=== PATIENT | male | born 1930 | race Caucasian/White ===

== ENCOUNTER 2017-01-15 22:33 | Inpatient (IN) | payer MEDICARE, BC, MEDICAID ==
--- NOTE | 2017-01-15 22:02 | EDM.PDOC ---
ED HISTORY OF PRESENT ILLNESS - General Stated Complaint: AMB Time Seen by Provider: 01/15/17 21:58 Source of Information: Reports: Patient, EMS History Limitations: Reports: Respiratory distress - History of Present Illness INITIAL COMMENTS - FREE TEXT/NARRATIVE: Pt poor historian. EMS state Pt's called stating unable get Pt back into bed he's too heavy and also having breathing problems and all his meds are here in hospital we should know them all and also wants him to be admitted since can' t care for him. Pt states been having breathing problems 2 days worse tonight. doesn't know what meds he take but denies med allergies. states we should have all his records here. - Related Data Allergies/ADRs: Allergies Allergy/AdvReac Type Severity Reaction Status Date / Time No Known Allergies Allergy Verified 01/15/17 22:01 Home Meds: Home Meds Allopurinol [Zyloprim] 150 mg PO DAILY 02/19/15 [History] Carvedilol [Carvedilol] 6.25 mg PO BID 02/19/15 [History] Cholecalciferol (Vitamin D3) [Vitamin D3] 1,000 unit PO 02/19/15 [History] Fenofibrate [Fenofibrate] 160 mg PO DAILY 02/19/15 [History] Insulin Aspart [NovoLOG] 27 units SUBCUT TID 02/19/15 [History] Insulin Glarg,Human.Rec.Analog [Lantus Solostar] 65 unit SUBCUT DAILY 02/19/15 [ History] Levothyroxine [Levothyroxine] 200 mcg PO DAILY 02/19/15 [History] Multivitamin W-Minerals/Lutein [Vision Plus Lutein Vitamin] 1 tab PO DAILY 02/19 [History] Pantoprazole [ProTONIX] 40 mg PO DAILY 02/19/15 [History] Simvastatin [Simvastatin] 20 mg PO BEDTIME 02/19/15 [History] Sodium Bicarbonate 650 mg PO DAILY 02/19/15 [History] Tamsulosin HCl [Tamsulosin HCl] 0.4 mg PO DAILY 02/19/15 [History] Thiamine Mononitrate [Vitamin B-1] 100 mg PO 02/19/15 [History] Warfarin [Coumadin] 5 mg PO DAILY 02/19/15 [History] amLODIPine Besylate [Amlodipine Besylate] 5 mg PO DAILY 02/19/15 [History] hydrALAZINE [Apresoline] 50 mg PO Q8H 02/19/15 [History] traMADol [Ultram] 50 mg PO Q8H PRN 02/19/15 [History] Past Medical History Other Gastrointestinal History: hx GI Bleed Social & Family History - Tobacco Use Smoking Status *Q: Current Some Day Smoker Years of Tobacco use: 20 Packs/Tins Daily: 0 Used Tobacco, but Quit: Yes Month Tobacco Last Used: 10 - Alcohol Use Days Per Week of Alcohol Use: 0 - Recreational Drug Use Recreational Drug Use: No ED ROS GENERAL - Review of Systems Review Of Systems: ROS reveals no pertinent complaints other than HPI. ED EXAM, GENERAL - Physical Exam Exam: See Below Exam Limited By: Respiratory distress General Appearance: alert, WD/WN, mild distress, other (cranky, but co-op') Ears: hearing grossly normal Throat/Mouth: Normal voice, No airway compromise Head: atraumatic Neck: non-tender, full range of motion Respiratory/Chest: decreased breath sounds, rhonchi, wheezing, accessory muscle use, other (subcostal ) Cardiovascular: regular rate, rhythm GI/Abdominal: soft, non tender Extremities: pedal edema, other (2+ bilateral) Neurological: alert, oriented, normal cognition, no motor/sensory deficits Psychiatric: anxious Skin Exam: Warm, Dry Lymphatic: no adenopathy Course - Vital Signs Last Recorded V/S: Last Vital Signs Temp 36.9 C 01/15/17 22:02 Pulse 103 H 01/15/17 22:02 Resp 24 H 01/15/17 22:02 BP 151/107 H 01/15/17 22:02 Pulse Ox 94 L 01/15/17 22:02 - Orders/Labs/Meds Orders: Active Orders 24 hr Category Date Time Status EKG Documentation Completion [RC] STAT Care 01/15/17 21:56 Active CULTURE BLOOD [BC] Stat Lab 01/15/17 22:00 Received cefTRIAXone [Rocephin] 1 gm Med 01/15/17 23:02 Ordered Sodium Chloride 0.9% [Normal Saline] 100 ml IV ONETIME Medication Orders Ceftriaxone Sodium 1 gm/ (Sodium Chloride) 100 mls @ 200 mls/hr IV ONETIME ONE Stop: 01/15/17 23:31 Labs: Laboratory Tests 01/15/17 01/15/1701/15/17 Range/Units 22:00 22:00 22:00 WBC 20.1 H (5.0-10.0) 10^3/uL RBC 5.83 (4.6-6.2) 10^6/uL Hgb 16.3 (14.0-18.0) g/dL Hct 50.4 (40.0-54.0) % MCV 86.4 (80-100) fL MCH 28.0 (27.0-34.0) pg MCHC 32.3 L (33.0-35.0) g/dL Plt Count 286 (150-450) 10^3/uL Neut % (Auto) 92.5 H (42.2-75.2) % Lymph % (Auto) 2.5 L (20.5-50.1) % [place] % (Auto) 4.2 (2-8) % Eos % (Auto) 0.6 L (1.0-3.0) % Baso % (Auto) 0.2 (0.0-1.0) % D-Dimer, Quantitative 473 H (0-400) ng/mL Sodium 138 (135-145) mmol/L Potassium 4.4 (3.6-5.0) mmol/L Chloride 102 (101-111) mmol/L Carbon Dioxide 26.0 (21.0-31.0) mmol/L Anion Gap 14.4 BUN 38 H (7-18) mg/dL Creatinine 2.7 H (0.6-1.3) mg/dL Est Cr Clr Drug Dosing 18.38 mL/min Estimated GFR (MDRD) 23 BUN/Creatinine Ratio 14.07 Glucose 142 H (74-105) mg/dL Lactic Acid (0.5-2.2) mmol/L Calcium 9.2 (8.4-10.2) mg/dl Total Bilirubin 0.9 (0.2-1.0) mg/dL AST 21 (10-42) IU/L ALT 9 L (10-60) IU/L Alkaline Phosphatase 42 (42-121) IU/L Troponin I < 0.02 (0.00-0.02) ng/ml B-Natriuretic Peptide 50 (0-100) pg/ml Total Protein 7.7 (6.7-8.2) g/dl Albumin 4.1 (3.2-5.5) g/dl Globulin 3.6 Albumin/Globulin Ratio 1.14 01/15/17 Range/Units 22:00 WBC (5.0-10.0) 10^3/uL RBC (4.6-6.2) 10^6/uL Hgb (14.0-18.0) g/dL Hct (40.0-54.0) % MCV (80-100) fL MCH (27.0-34.0) pg MCHC (33.0-35.0) g/dL Plt Count (150-450) 10^3/uL Neut % (Auto) (42.2-75.2) % Lymph % (Auto) (20.5-50.1) % [place] % (Auto) (2-8) % Eos % (Auto) (1.0-3.0) % Baso % (Auto) (0.0-1.0) % D-Dimer, Quantitative (0-400) ng/mL Sodium (135-145) mmol/L Potassium (3.6-5.0) mmol/L Chloride (101-111) mmol/L Carbon Dioxide (21.0-31.0) mmol/L Anion Gap BUN (7-18) mg/dL Creatinine (0.6-1.3) mg/dL Est Cr Clr Drug Dosing mL/min Estimated GFR (MDRD) BUN/Creatinine Ratio Glucose (74-105) mg/dL Lactic Acid 1.5 (0.5-2.2) mmol/L Calcium (8.4-10.2) mg/dl Total Bilirubin (0.2-1.0) mg/dL AST (10-42) IU/L ALT (10-60) IU/L Alkaline Phosphatase (42-121) IU/L Troponin I (0.00-0.02) ng/ml B-Natriuretic Peptide (0-100) pg/ml Total Protein (6.7-8.2) g/dl Albumin (3.2-5.5) g/dl Globulin Albumin/Globulin Ratio Meds: Medications Generic Name Dose Route Start Last Admin Trade Name Freq PRN Reason Stop Dose Admin Ceftriaxone Sodium 1 gm/ 100 mls @ 200 mls/hr 01/15/17 23:02 Sodium Chloride IV 01/15/17 23:31 ONETIME ONE Discontinued Medications Generic Name Dose Route Start Last Admin Trade Name Pravinq PRN Reason Stop Dose Admin Methylprednisolone Sodium Succinate 125 mg 01/15/17 21:57 01/15/17 22:21 Solu-Medrol IVPUSH 01/15/17 21:58 125 mg ONETIME ONE Administration - Re-Assessments/Exams Free Text/Narrative Re-Assessment/Exam: 01/15/17 23:[address] Diaz who kindly admitted Pt. Departure - Departure Time of Disposition: 23:04 Disposition: Admitted As Inpatient 68 Condition: good Clinical Impression: Pneumonia Qualifiers: Pneumonia type: due to unspecified organism Laterality: bilateral Lung location : lower lobe of lung Qualified Code(s): J18.9 - Pneumonia, unspecified organism Forms: ED Department Discharge - My Orders Last 24 Hours: My Active Orders 01/15/17 21:56 EKG Documentation Completion [RC] STAT 01/15/17 22:00 CULTURE BLOOD [BC] Stat 01/15/17 23:02 cefTRIAXone [Rocephin] 1 gm Sodium Chloride 0.9% [Normal Saline] 100 ml IV ONETIME - Assessment/Plan Last 24 Hours: My Active Orders 01/15/17 21:56 EKG Documentation Completion [RC] STAT 01/15/17 22:00 CULTURE BLOOD [BC] Stat 01/15/17 23:02 cefTRIAXone [Rocephin] 1 gm Sodium Chloride 0.9% [Normal Saline] 100 ml IV ONETIME
[2017-01-15 22:28] LABS: CHLORIDE,CL 102 mmol/L (101-111); SODIUM,NA 138 mmol/L (135-145)
[~2017-01-15 22:33] MED LIST: methylPREDNISolone Sodium Succinate 125 MG/2 ML SDV IVPUSH ONE
[2017-01-15] MEDS ORDERED: cefTRIAXone 1 GM in Sodium Chloride 0.9% 100 ML IV ONE (23:02)
[2017-01-16] MEDS ORDERED: Acetaminophen/oxyCODONE 325-5 MG Tab PO PRN (00:42)
[2017-01-16] MEDS ORDERED: Ondansetron 4 MG Tab.DIS PO PRN (00:42)
[2017-01-16] MEDS ORDERED: Polyethylene Glycol 3350 Powder 17 GM Packet PO PRN (00:42)
[2017-01-16] MEDS ORDERED: Zolpidem 5 MG Tab PO PRN (00:42)
[2017-01-16] MEDS ORDERED: Acetaminophen 325 MG Tab PO PRN (00:42)
[2017-01-16] MEDS ORDERED: Docusate Sodium 100 MG Cap PO PRN (00:42)
[2017-01-16] MEDS ORDERED: Magnesium Hydroxide 400 MG/5 ML Susp 30 ML Cup PO PRN (00:42)
[2017-01-16] MEDS ORDERED: Sodium Chloride 0.9% 1,000 ML IV SCH ×2 (00:45→10:00)
[2017-01-16] MEDS ORDERED: 50% Dextrose in Water 50 ML Syringe IVPUSH PRN (00:46)
[2017-01-16] MEDS ORDERED: Insulin Aspart 100 Units/ML 3 ML Pen SUBCUT SCH ×2 (01:00→09:00)
[2017-01-16] MEDS: cefTRIAXone 1 GM in Sodium Chloride 0.9% 50 ML IV SCH (01:05)
[2017-01-16] MEDS: hydrALAZINE 25 MG Tab PO SCH ×3 (01:14→16:08)
[2017-01-16] MEDS: Azithromycin 500 MG in Sodium Chloride 0.9% 250 ML IV SCH (01:15)
--- NOTE | 2017-01-16 03:51 | HP ---
CHIEF COMPLAINT: Increasing weakness, tiredness, cough. HISTORY OF PRESENT ILLNESS: Mr. Suzan Ortiz is an 86-year-old male with medical history significant for hypertension, hyperlipidemia, type 2 diabetes mellitus, coronary artery disease, history of cerebrovascular accident in the past, benign prostatic hypertrophy, atrial fibrillation on chronic anticoagulation with Coumadin, gastroesophageal reflux disease, hypothyroidism, presented to the ER with complaints of increasing weakness, tiredness, and also having cough for the last 2 to 3 days. At this time, the patient complains of increasing weakness, 6/10 in intensity, aggravated on exertion, relieved with rest, has been progressively getting worse in the last 1-2 days, associated with cough, which is dry in nature. The patient is not able to bring up any phlegm. Denies any fevers or chills in the last 2 days. No sick contacts. No recent travel. No pets at home. Denied any history of similar complaints in the past. While in the emergency room, the patient was also noted to be hypoxic, requiring nasal cannula oxygen. He was saturating only at around 86% on room air. He denies any ongoing chest pains at this time. No abdominal pain. No nausea. No vomiting. No diarrhea in the last few days. The patient denied any history of chest pains, any exertion. No history of dyspnea on exertion. The patient claims that he cannot walk mostly from his pain. Denied any history of hematemesis, hematochezia, or melanotic stools. Normal bowel and bladder habits, otherwise. REVIEW OF SYSTEMS: A complete review of system including skin, ear, nose, and throat, cardiovascular system, respiratory system, gastrointestinal system, genitourinary system, hematology, oncology, neurology, allergy, immunology, endocrinology, constitutional were all evaluated and were negative except for the above-said notes. PAST MEDICAL HISTORY: Significant for hypertension, hyperlipidemia, type 2 diabetes mellitus, chronic kidney disease, atrial fibrillation, chronic anticoagulation on Coumadin, cerebrovascular accidents in the past, hypothyroidism, gastroesophageal reflux disease. PAST SURGICAL HISTORY: Significant for total knee replacement, colonoscopy, coronary artery bypass graft, and transurethral resection of the prostate in the past. FAMILY HISTORY: Significant for diabetes in his father. Diabetes and heart disease in his brother. SOCIAL HISTORY: The patient denied any history of smoking tobacco. No history of alcohol intake. ALLERGIES: Patient is noted to have allergies to codeine and cortisone. HOME MEDICATIONS: Reviewed, he is on: 1. Hydralazine 50 mg q.8 hourly. 2. Norvasc 2.5 mg daily. 3. Coumadin 1.25 mg daily. 4. Thiamine 100 mg daily. 5. Tamsulosin 0.4 mg daily. 6. Sodium bicarbonate 650 mg daily. 7. Simvastatin 20 mg at bedtime. 8. Protonix 40 mg daily. 9. Levothyroxine 1 tablet daily. 10.NovoLog 25 units 3 times a day. 11.Lantus 58 units daily. 12.Fenofibrate 160 mg daily. 13.Carvedilol 6.25 mg twice a day. 14.Aspirin 1 tablet daily. 15.Allopurinol 1 tablet daily. PHYSICAL EXAMINATION: Vital Signs: Temperature of 98.5, pulse of 103, respiratory rate of 24, blood pressure 151/107, saturating at 94% on 2-3 L of nasal cannula oxygen. General Appearance: The patient is well oriented to time, place, and person. Follows commands spontaneously. Cardiovascular: S1-S2 heard with normal intensity. No gallops. Respiratory: Clear to auscultation bilaterally, except for mild crepitations at the bases. No wheeze. Abdomen: Soft. Bowel sounds positive. Nontender. No rigidity. Extremities: No edema in bilateral lower extremities. Neurology: No gross focal neurological deficit. Skin: No acute rash noted. Psychology: Normal mood. LABS: WBC 20.1, hemoglobin 16.3, hematocrit 50.4, and platelet count 286. Sodium 138, potassium 4.4, chloride 102, bicarb 26, BUN 38, creatinine 2.7, glucose 142, lactic acid 1.5. AST 21, ALT 9, alkaline phosphatase 42, troponin less than 0.02. B-natriuretic peptide 50. ASSESSMENT: 1. Possible pneumonia. 2. Acute hypoxic respiratory failure. 3. Hypertension. 4. Type 2 diabetes mellitus. 5. Hyperlipidemia. 6. Coronary artery disease, status post coronary artery bypass graft. 7. Atrial fibrillation, on chronic anticoagulation with Coumadin. 8. Hypothyroidism. 9. Obesity. 10.Generalized debility. 11.Leukocytosis. 12.Systemic inflammatory response syndrome with possible sepsis. PLAN: 1. Pneumonia. The patient had a chest x-ray, which shows possible infiltrates versus atelectasis, but the patient has been coughing up for the last 2 to 3 days. Given his leukocytosis, pneumonia high in the differential. We will need to rule out for rapid influenza swabs. We will empirically start him on IV antibiotics, ceftriaxone, and Zithromax. We will obtain sputum cultures, blood cultures, and titrate the antibiotics once we have the culture reports available. 2. Possible sepsis. The patient is noted to be tachycardic, tachypneic with the heart rate of 103, respiratory rate of 24, has leukocytosis. WBC 20.1 and possible pneumonia, consideration of possible sepsis. Initial lactic acid has been within normal limits. We will follow with serial lactic acid in the next 6 hours and continue with IV antibiotics. 3. Hypertension, uncontrolled. The patient is noted to have elevated blood pressure. We will continue with current antihypertensive medications. We will further titrate up the medication as needed to optimize the blood pressure. 4. Type 2 diabetes mellitus. The patient is noted to be on insulin regimen. We will continue with the insulin dose while in the hospital. Check his fingersticks with each meals, have him on supplemental scale insulin as needed for additional coverage of his blood glucose. 5. Coronary artery disease. The patient denies any ongoing chest pains. His initial troponin remained negative. The 12-lead EKG shows atrial fibrillation, no acute ST elevation or ST depression noted. Continue with current medications. 6. Hypothyroidism. The patient is currently on levothyroxine, continue the same. We will order for a TSH level. 7. Acute hypoxic respiratory failure. This is mainly from his underlying pneumonia process. The patient will be kept on incentive spirometer and flutter valve for better pulmonary toileting. Continue supplemental oxygen to maintain a saturation of 95%. 8. Chronic anticoagulation. The patient is noted to be on Coumadin, continue the same. Try to maintain therapeutic INR of 2 to 3. We will recheck an INR in the a.m. Pharmacy to dose the Coumadin. 9. Gastroesophageal reflux disease. The patient is currently on Protonix, continue the same. 10.Code status. I had reviewed the detailed discussion regarding code status with the patient and the patient wants to be full code. 11.Reviewed the labs and medications. Reviewed the old charts. Discussed with Dr. Dickson, ER physician, regarding the plan of care. [facility] /[id number]
[2017-01-16] MEDS: Albuterol/Ipratropium 3.0-0.5 MG/3 ML Neb Soln NEB PRN (06:12)
[2017-01-16] MEDS: Levothyroxine 150 MCG Tab PO SCH (06:12)
[2017-01-16] MEDS: Insulin Aspart 100 Units/ML 3 ML Pen SUBCUT SCH ×7 (08:21→21:06)
[2017-01-16] MEDS: Pantoprazole 40 MG Tab.CR PO SCH (08:47)
[2017-01-16] MEDS: Sodium Bicarbonate 650 MG Tab PO SCH (08:49)
[2017-01-16] MEDS: Aspirin 81 MG Tab.EC PO SCH (08:49)
[2017-01-16] MEDS: Tamsulosin 0.4 MG Cap.ER PO SCH (08:49)
[2017-01-16] MEDS: Carvedilol 6.25 MG Tab PO SCH ×2 (08:49→21:05)
[2017-01-16] MEDS: Allopurinol 100 MG Tab PO SCH (08:49)
[2017-01-16] MEDS: amLODIPine 5 MG Tab PO SCH (08:50)
[2017-01-16] MEDS: Thiamine 100 MG Tab PO SCH (08:50)
[2017-01-16] MEDS: Insulin Detemir 100 Units/ML 3 ML Pen SUBCUT SCH (08:51)
[2017-01-16] MEDS ORDERED: Warfarin 2.5 MG Tab PO SCH (09:00)
[2017-01-16] MEDS ORDERED: Non-Formulary Medication 1 Each (Fenofibrate [Fenofibrate] 160 MG) PO SCH (09:00)
--- NOTE | 2017-01-16 13:28 | PN ---
DATE: 01/16/2017 HISTORY OF PRESENT ILLNESS: Mr. Suzan Ortiz is an 86-year-old male with medical history significant for hypertension, hyperlipidemia, type 2 diabetes mellitus, coronary artery disease, cerebrovascular accident in the past, benign prostatic hypertrophy, atrial fibrillation, and chronic anticoagulation, on Coumadin, was admitted to the hospital with complaints of increasing weakness, tiredness, and having cough, and was noted to have possible pneumonia. For the last 24 hours, the patient continues to be on nasal cannula oxygen to maintain a saturation of 95%. The patient has mild cough, but no phlegm. He denied any chest pains. No abdominal pain. No nausea. No vomiting. No diarrhea. REVIEW OF SYSTEMS: Cardiovascular, respiratory, gastrointestinal, neurology, and constitutional were all evaluated. PHYSICAL EXAMINATION: Vital signs: Temperature of 97, pulse of 79, blood pressure 133/73, saturating at 93% on 2 L of oxygen, and respiratory rate of 20. General appearance: The patient is well oriented to time, place, and person. Follows commands spontaneously. Cardiovascular system: S1 and S2 heard with normal intensity. No gallops. Respiratory system: Clear to auscultation bilaterally. No wheeze. No crepitations. Abdomen: Soft. Bowel sounds positive. Nontender. No rigidity. Extremities: No edema in bilateral lower extremities. Neurology: No gross focal neurological deficits. Skin: No acute rash noted. Psychology: Normal mood. MEDICATIONS: Reviewed shows: 1. Tylenol 650 mg every 4 hours as needed for pain. 2. DuoNeb 3 mL nebulizer every 4 hours as needed for shortness of breath. 3. Allopurinol 100 mg daily. 4. Norvasc 2.5 mg daily. 5. Aspirin 81 mg daily. 6. Zithromax 500 mg daily. 7. Coreg 6.25 mg twice a day. 8. Ceftriaxone 1 g daily. 9. Docusate sodium 100 mg twice a day. 10.Hydralazine 50 mg every 8 hours as scheduled. 11.NovoLog supplemental scale. 12.NovoLog 25 units three times a day with each meals. 13.Levemir 58 units, subcutaneous daily. 14.Levothyroxine 150 mcg daily. 15.Percocet 5/325 mg as needed for pain. 16.Protonix 40 mg daily. 17.Zocor 20 mg at bedtime. 18.Sodium bicarbonate 650 mg daily. 19.Thiamine 100 mg daily. 20.Coumadin pharmacy to dose. 21.Ambien 5 mg at night as needed for sleep. LABORATORY DATA: Reviewed, shows WBC 28.9, hemoglobin 14.5, hematocrit 45.4, and platelet count 248. Sodium 139, potassium 4.8, chloride 106, bicarb 25, BUN 45, and creatinine 3. Glucose 242. TSH 2.4. Lactic acid 1.3. ASSESSMENT: 1. Pneumonia. 2. Possible sepsis. 3. Acute hypoxic respiratory failure. 4. Hypertension. 5. Type 2 diabetes mellitus. 6. Hyperlipidemia. 7. Coronary artery disease. 8. Hypothyroidism. 9. Acute on chronic renal failure. 10.Chronic anticoagulation. 11.Gastroesophageal reflux disease. PLAN: 1. Pneumonia. The patient was admitted with cough, but no phlegm, and is noted to have leukocytosis, consistent with pneumonia. The patient was started on IV antibiotics. We will continue the same. Await for blood cultures and sputum cultures, and titrate the antibiotics as appropriate. 2. Acute hypoxic respiratory failure. The patient continues to receive supplemental oxygen and his respiratory status slightly improved. We will continue with nebulizers as needed. The patient is encouraged to use incentive spirometer and flutter valve for better pulmonary toileting. 3. Acute on chronic renal failure. The patient is noted to have elevated creatinine from his baseline function. It has increased to 3. The patient is currently on IV fluids. We will continue the same. His BUN is also increased, so we will recheck a basic metabolic panel in the a.m. Avoid any nephrotoxic agents. Dose adjust medications for renal function. 4. Hypertension. Continue with current independence medication. 5. Type 2 diabetes mellitus. The patient did receive high dose of steroids in the emergency room, this could result in uncontrolled diabetes. Continue supplemental scale insulin as needed for additional coverage of his blood glucose. 6. Atrial fibrillation. The patient has been on chronic anticoagulation with Coumadin. His heart rate seems to be well controlled. Continue with Coreg for better rate control. Continue the aspirin. Pharmacy to dose the Coumadin for therapeutic INR of 2 to 3. 7. Type 2 diabetes mellitus. The patient is currently on insulin regimen. Continue the same. 8. Hypothyroidism. The patient is currently on levothyroxine. 9. Discussed with family members at bedside. [facility] /[id number]
[2017-01-16] MEDS: Simvastatin 10 MG Tab PO SCH (21:07)
[2017-01-17] MEDS: hydrALAZINE 25 MG Tab PO SCH ×4 (00:47→23:34)
[2017-01-17] MEDS: cefTRIAXone 1 GM in Sodium Chloride 0.9% 50 ML IV SCH (00:48)
[2017-01-17] MEDS: Azithromycin 500 MG in Sodium Chloride 0.9% 250 ML IV SCH (01:22)
[2017-01-17] MEDS: Levothyroxine 150 MCG Tab PO SCH (05:49)
[2017-01-17] MEDS: Albuterol/Ipratropium 3.0-0.5 MG/3 ML Neb Soln NEB PRN (05:51)
[2017-01-17] MEDS: Insulin Aspart 100 Units/ML 3 ML Pen SUBCUT SCH ×7 (08:28→20:54)
[2017-01-17] MEDS ORDERED: Warfarin 2.5 MG Tab PO SCH (09:00)
[2017-01-17] MEDS: Pantoprazole 40 MG Tab.CR PO SCH (09:13)
[2017-01-17] MEDS: FENOFIBRATE 160 MG PO SCH (09:13)
[2017-01-17] MEDS: Carvedilol 6.25 MG Tab PO SCH ×2 (09:14→20:54)
[2017-01-17] MEDS: Tamsulosin 0.4 MG Cap.ER PO SCH (09:14)
[2017-01-17] MEDS: Allopurinol 100 MG Tab PO SCH (09:14)
[2017-01-17] MEDS: Thiamine 100 MG Tab PO SCH (09:15)
[2017-01-17] MEDS: Aspirin 81 MG Tab.EC PO SCH (09:15)
[2017-01-17] MEDS: amLODIPine 5 MG Tab PO SCH (09:15)
[2017-01-17] MEDS: Sodium Bicarbonate 650 MG Tab PO SCH (09:15)
[2017-01-17] MEDS: Insulin Detemir 100 Units/ML 3 ML Pen SUBCUT SCH (09:16)
[2017-01-17] MEDS ORDERED: Insulin Detemir 100 Units/ML 3 ML Pen SUBCUT SCH (09:46)
[2017-01-17] MEDS ORDERED: guaiFENesin 100 MG/5 ML Soln 5 ML UD Cup PO PRN (09:52)
[2017-01-17] MEDS ORDERED: Benzonatate 100 MG Cap PO PRN (09:52)
--- NOTE | 2017-01-17 10:49 | PN ---
DATE: 01/17/2017 HISTORY OF PRESENTING ILLNESS: Mr. Suzan Ortiz is an 86-year-old male with medical history significant for hypertension, hyperlipidemia, type 2 diabetes mellitus, coronary artery disease, cerebrovascular accident in the past, benign prostatic hypertrophy, atrial fibrillation, on chronic anticoagulation with Coumadin, admitted to the hospital with complaints of increasing weakness, tiredness, and shortness of breath with a cough, noted to have pneumonia. For the past 24 hours, the patient was noted to be hypoxic at times. He required nebulizer treatments for wheezing. This morning, he is more awake and alert. He denies any chest pain. No shortness of breath. No abdominal pain. No nausea. No vomiting. No diarrhea. No other acute events noted overnight. REVIEW OF SYSTEMS: Cardiovascular, respiratory, gastrointestinal, neurology, constitutional were all evaluated. PHYSICAL EXAMINATION: Vital Signs: Temperature of 97.4, pulse of 81, blood pressure 116/71, respiratory rate of 20, saturating at 90% on room air. General Appearance: The patient is well oriented to time, place, and person. Follows commands spontaneously. Cardiovascular System: S1 and S2 heard with normal intensity. No gallops. Respiratory System: Mild wheeze bilaterally. No crepitations. Abdomen: Soft. Bowel sounds positive. Nontender. No rigidity. Extremities: No edema in bilateral lower extremities. Neurology: No gross focal neurological deficits. Skin: No acute rash. Psychology: Normal mood. MEDICATIONS: Reviewed. Continue with: 1. Tylenol 650 mg every 4 hours as needed for pain. 2. DuoNeb 3 mL nebulizer every 4 hours as needed. 3. Allopurinol 100 mg daily. 4. Aspirin 81 mg daily. 5. Zithromax 500 mg daily. 6. Tessalon Perles as needed. 7. Coreg 6.25 mg twice a day. 8. Ceftriaxone 1 g daily. 9. Robitussin 100 mg p.o. every 6 hours as needed for cough. 10.Hydralazine 50 mg every 8 hours. 11.NovoLog supplemental scale. 12.NovoLog 25 units three times a day with each meal. 13.Levemir 62 units daily. 14.Levothyroxine 150 mcg daily. 15.Milk of magnesia 30 mL q.12 hourly. 16.Zofran 4 mg every 4 hours as needed. 17.Percocet as needed. 18.Protonix 40 mg daily. 19.Sodium bicarbonate 650 mg daily. 20.Flomax 0.4 mg daily. 21.Thiamine 100 mg daily. 22.Coumadin pharmacy to dose. 23.Ambien 5 mg at bedtime as needed for sleep. LABORATORY DATA: WBC 22.3, hemoglobin 13.1, hematocrit 41.6, platelet count 250. Sodium 135, potassium 4.8, chloride 103, bicarb 23, BUN 67, creatinine 3.1, glucose 191. ASSESSMENT: 1. Possible pneumonia. 2. Acute bronchitis. 3. Possible sepsis. 4. Acute hypoxic respiratory failure. 5. Hypertension. 6. Type 2 diabetes mellitus, uncontrolled. 7. Hyperlipidemia. 8. Coronary artery disease. 9. Hypothyroidism. 10.Acute on chronic renal failure. 11.Chronic anticoagulation. 12.Gastroesophageal reflux disease. PLAN: 1. Pneumonia. The patient was admitted with weakness, tiredness, and cough. He was noted to have possible pneumonia. He was started on IV antibiotics, we will continue the same. So far, his cultures remain negative. 2. Acute respiratory failure. The patient was noted to be hypoxic at times, requiring nebulizers. He is noted to have wheezing, suggestive of possible bronchitis. The patient will be started on nebulizer treatment with DuoNeb, Pulmicort nebulizer, and also we will have him on pulse dose of steroids at this time. We will repeat a chest x-ray as the patient continues to have episodes of hypoxia and cough. We will follow the x-ray report. 3. Acute on chronic renal failure. The patient's creatinine seems to be worsening. His creatinine is 3.1, with elevated BUN of 67, suggestive of prerenal picture, possible dehydration with his underlying pneumonia. We will keep him hydrated with IV fluids. Avoid any nephrotoxic agents. Dose adjust medications for renal function. Recheck a basic metabolic panel in a.m. 4. Hypertension. The patient's blood pressure seems to be in acceptable range. 5. Type 2 diabetes mellitus, uncontrolled. Could be resulting from high-dose steroids he got while in the emergency room. We will increase the long- acting insulin to 62 units and we will check his fingersticks with each meal, have him on supplemental scale insulin as needed for additional coverage of his blood glucose. 6. Chronic anticoagulation. Pharmacy to dose Coumadin for therapeutic INR of 2 to 3. 7. Atrial fibrillation, rate controlled. Continue with Coreg. 8. Hypothyroidism. Continue with current dose of levothyroxine. 9. Gastroesophageal reflux disease. The patient is currently on Protonix 40 mg daily, continue the same. 10.Discussed with family members at bedside. [facility] /[id number]
[2017-01-17] MEDS: methylPREDNISolone Sodium Succinate 40 MG/1 ML SDV IVPUSH SCH ×2 (11:30→18:45)
[2017-01-17] MEDS: Sodium Chloride 0.9% 1,000 ML IV SCH (11:38)
[2017-01-17] MEDS: Albuterol/Ipratropium 3.0-0.5 MG/3 ML Neb Soln NEB SCH ×2 (15:30→23:34)
[2017-01-17] MEDS: Budesonide 0.5 MG/2 ML Neb Susp NEB SCH (18:45)
[2017-01-17] MEDS: Simvastatin 10 MG Tab PO SCH (20:54)
[2017-01-18] MEDS: cefTRIAXone 1 GM in Sodium Chloride 0.9% 50 ML IV SCH (00:38)
[2017-01-18] MEDS: Sodium Chloride 0.9% 1,000 ML IV SCH (00:38)
[2017-01-18] MEDS: Azithromycin 500 MG in Sodium Chloride 0.9% 250 ML IV SCH (01:16)
[2017-01-18] MEDS: methylPREDNISolone Sodium Succinate 40 MG/1 ML SDV IVPUSH SCH (02:48)
[2017-01-18] MEDS: hydrALAZINE 25 MG Tab PO SCH ×3 (06:10→21:09)
[2017-01-18] MEDS: Levothyroxine 150 MCG Tab PO SCH (06:10)
[2017-01-18] MEDS: Albuterol/Ipratropium 3.0-0.5 MG/3 ML Neb Soln NEB SCH ×7 (07:13→22:43)
[2017-01-18] MEDS: Budesonide 0.5 MG/2 ML Neb Susp NEB SCH ×2 (07:13→18:03)
[2017-01-18] MEDS: Insulin Aspart 100 Units/ML 3 ML Pen SUBCUT SCH ×7 (08:42→21:09)
[2017-01-18] MEDS: Thiamine 100 MG Tab PO SCH (09:26)
[2017-01-18] MEDS: Sodium Bicarbonate 650 MG Tab PO SCH (09:26)
[2017-01-18] MEDS: Aspirin 81 MG Tab.EC PO SCH (09:26)
[2017-01-18] MEDS: Pantoprazole 40 MG Tab.CR PO SCH (09:26)
[2017-01-18] MEDS: Allopurinol 100 MG Tab PO SCH (09:27)
[2017-01-18] MEDS: amLODIPine 5 MG Tab PO SCH (09:27)
[2017-01-18] MEDS: Carvedilol 6.25 MG Tab PO SCH ×2 (09:27→21:09)
[2017-01-18] MEDS: Tamsulosin 0.4 MG Cap.ER PO SCH (09:28)
[2017-01-18] MEDS: FENOFIBRATE 160 MG PO SCH (09:29)
[2017-01-18] MEDS ORDERED: methylPREDNISolone Sodium Succinate 40 MG/1 ML SDV IVPUSH SCH ×3 (09:59→16:00)
[2017-01-18] MEDS ORDERED: Furosemide 40 MG/4 ML VIAL IVPUSH ONE (10:27)
[2017-01-18] MEDS ORDERED: Carboxymethylcellulose Sodium 1% Ophth Gel 0.4 ML UD EYEBOTH PRN (10:30)
--- NOTE | 2017-01-18 12:16 | PN ---
DATE: 01/18/2017 SUBJECTIVE: Mr. Suzan Ortiz is an 86-year-old male with medical history significant for hypertension, hyperlipidemia, type 2 diabetes mellitus, coronary artery disease, cerebrovascular accident in the past, benign prostatic hypertrophy, and atrial fibrillation on chronic anticoagulation with Coumadin admitted with complaints of increasing weakness, tiredness, shortness of breath and cough. Noted to have possible pneumonia. For the past 24 hours, the patient continues to have wheeze, he is complaining of dry eyes. He denies any chest pains, but complains of mild shortness of breath. Denied any abdominal pain. No nausea. No vomiting. No diarrhea. REVIEW OF SYSTEMS: Cardiovascular, respiratory, gastrointestinal, neurology, constitutional were all evaluated. PHYSICAL EXAMINATION: Vital Signs: Temperature of 97.2, pulse of 64, blood pressure 127/75, respiratory rate of 20, saturating at 92% on 1-2 L of nasal cannula oxygen. General Appearance: The patient is well oriented to time, place, and person. Follows commands spontaneously. Cardiovascular System: S1 and S2 heard with normal intensity. No gallops. Respiratory System: Bilateral wheeze noted. Mild crepitations at the bases. Abdomen: Soft. Bowel sounds positive. Nontender. No rigidity. Extremities: No edema bilateral lower extremities. Neurology: No gross focal neurological deficits. Skin: No acute rash noted. MEDICATIONS: Reviewed. 1. Continue with Tylenol 650 every 4 hours as needed for pain. 2. DuoNeb 3 mL nebulizer increased to every 4 hours today. 3. Allopurinol 100 mg daily. 4. Norvasc 2.5 mg daily. 5. Artificial Tears, Refresh 1 each eye both as directed p.r.n. 6. Aspirin 81 mg daily. 7. Zithromax 500 mg IV daily. 8. Tessalon Perles as needed. 9. Pulmicort 0.5 mg nebulizer twice a day. 10.Coreg 6.25 mg twice a day. 11.Ceftriaxone 1 g daily. 12.Docusate sodium 100 mg twice a day as needed. 13.Hydralazine 50 mg 3 times a day. 14.NovoLog 30 units 3 times a day. 15.Levemir 66 units daily. 16.Levothyroxine 150 mcg daily. 17.Milk of magnesia 30 mL q.12 hourly as needed. 18.Methylprednisone 80 mg IV q.8 hourly. 19.Protonix 40 mg daily. 20.MiraLax 17 g p.o. daily as needed. 21.Zocor 20 mg at bedtime. 22.Sodium bicarbonate 650 mg daily. 23.Flomax 0.4 mg daily. 24.Vitamin B1 of 100 mg daily. 25.Coumadin, pharmacy to dose. 26.Ambien 5 mg at bedtime as needed for sleep. LABORATORY DATA: INR 2. Sodium 136, potassium 4.9, chloride 104, bicarb 23, BUN 71, creatinine 2.7, and glucose 284. B-natriuretic peptide 281. ASSESSMENT: 1. Acute bronchitis. 2. Possible pneumonia. 3. Acute hypoxic respiratory failure. 4. Hypertension. 5. Type 2 diabetes mellitus, uncontrolled. 6. Possible sepsis. 7. Hyperlipidemia. 8. Coronary artery disease. 9. Hypothyroidism. 10.Chronic anticoagulation with Coumadin. 11.Gastroesophageal reflux disease. PLAN: 1. Acute bronchitis. The patient continues to have wheeze and actually worsened from yesterday, we will stop the IV fluids. We will increase the DuoNeb to every 4 hourly. We will increase the Solu-Medrol to 80 mg IV q.8 hourly and we will continue supplemental oxygen. Repeat chest x-ray yesterday did not show any new infiltrates or new CHF exacerbation. Closely follow the patient. 2. Acute hypoxic respiratory failure. The patient continues to receive oxygen, try to maintain saturations around 95%. Put him on 2-3 L of nasal cannula oxygen. One might consider getting an ABG if the patient does not improve much. 3. Possible pneumonia. The patient did not have any acute infiltrates noted on the chest x-ray, but the patient noted to have acute bronchitis. The patient is empirically started on IV antibiotic with ceftriaxone and Zithromax. His microbiology data suggests no growth. Influenza was tested negative on this patient. The patient does not have any fevers or chills at this time. 4. Possible sepsis. The patient was noted to have possible sepsis at the time of admission, which is resolved at this time. Continue with current treatment plan with antibiotics. 5. Hypertension, well controlled. Continue with Norvasc. 6. Type 2 diabetes mellitus, uncontrolled secondary to steroid dosing. We will increase the NovoLog and Levemir dose today. We will check his fingersticks with each meals, have him on supplemental scale insulin as needed for additional coverage of his blood glucose. 7. Hypothyroidism. Patient is continued on levothyroxine 150 mcg daily, continue same. 8. Acute on chronic renal failure, improved. The patient's creatinine is back to baseline at 2.7 we have been giving him IV fluids, but secondary to the ongoing wheezing, we will discontinue the IV fluids, give him Lasix 40 mg IV x1 dose now and we will closely follow. Recheck a basic metabolic panel in a.m. Avoid any nephrotoxic agents. Dose adjust medications for renal function. Avoid any nonsteroidal anti-inflammatory agents. 9. Atrial fibrillation, chronic history, rate controlled. Continue with Coumadin for therapeutic INR of 2-3. The patient's INR is at 2. Pharmacy to dose the Coumadin for therapeutic INR of 2-3. This makes possible PE or DVT less likely. 10.Gastroesophageal reflux disease. The patient is currently on Protonix, continue the same. 11.BPH. Continue with Flomax. The patient will receive IV dose of Lasix today. [facility] /[id number]
[2017-01-18] MEDS ORDERED: Warfarin 2.5 MG Tab PO ONE (14:00)
[2017-01-18] MEDS: methylPREDNISolone Sodium Succinate 125 MG/2 ML SDV IVPUSH SCH ×2 (16:32→23:47)
[2017-01-18] MEDS: Simvastatin 10 MG Tab PO SCH (21:08)
[2017-01-19] MEDS: Sodium Chloride 0.9% 10 ML Syringe FLUSH PRN (00:28)
[2017-01-19] MEDS: cefTRIAXone 1 GM in Sodium Chloride 0.9% 50 ML IV SCH (00:28)
[2017-01-19] MEDS: Azithromycin 500 MG in Sodium Chloride 0.9% 250 ML IV SCH (00:56)
[2017-01-19] MEDS: Albuterol/Ipratropium 3.0-0.5 MG/3 ML Neb Soln NEB SCH ×6 (02:47→23:39)
[2017-01-19] MEDS: hydrALAZINE 25 MG Tab PO SCH ×3 (06:18→21:49)
[2017-01-19] MEDS: Levothyroxine 150 MCG Tab PO SCH (06:18)
[2017-01-19] MEDS: Budesonide 0.5 MG/2 ML Neb Susp NEB SCH ×2 (07:27→17:59)
[2017-01-19] MEDS: Sodium Bicarbonate 650 MG Tab PO SCH (08:13)
[2017-01-19] MEDS: Aspirin 81 MG Tab.EC PO SCH (08:13)
[2017-01-19] MEDS: Carvedilol 6.25 MG Tab PO SCH ×2 (08:13→21:49)
[2017-01-19] MEDS: methylPREDNISolone Sodium Succinate 125 MG/2 ML SDV IVPUSH SCH ×3 (08:14→23:38)
[2017-01-19] MEDS: Allopurinol 100 MG Tab PO SCH (08:14)
[2017-01-19] MEDS: Pantoprazole 40 MG Tab.CR PO SCH (08:14)
[2017-01-19] MEDS: Tamsulosin 0.4 MG Cap.ER PO SCH (08:14)
[2017-01-19] MEDS: Thiamine 100 MG Tab PO SCH (08:14)
[2017-01-19] MEDS: amLODIPine 5 MG Tab PO SCH (08:14)
[2017-01-19] MEDS: FENOFIBRATE 160 MG PO SCH (08:15)
[2017-01-19] MEDS: Insulin Aspart 100 Units/ML 3 ML Pen SUBCUT SCH ×7 (08:15→21:49)
[2017-01-19] MEDS: Insulin Detemir 100 Units/ML 3 ML Pen SUBCUT SCH (08:17)
[2017-01-19] MEDS ORDERED: Furosemide 40 MG Tab PO ONE (11:55)
--- NOTE | 2017-01-19 12:49 | PN ---
DATE: 01/19/2017 SUBJECTIVE: Mr. Suzan Ortiz is an 86-year-old male with a medical history significant for hypertension, hyperlipidemia, type 2 diabetes mellitus, coronary artery disease, cerebrovascular accident in the past, benign prostatic hypertrophy, atrial fibrillation on chronic anticoagulation with Coumadin was admitted to the hospital with complaints of increasing weakness, tiredness, shortness of breath and noted to have acute bronchitis and possible pneumonia. For the past 24 hours, the patient was noted to be increasingly wheezy yesterday, so we had to increase his DuoNeb to every 3 hours initially and then 4 hours and we had to increase the Solu-Medrol to 125 mg and trying to get an arterial blood gas analysis, but the patient declined to have the study done. This morning, the patient's respiratory status seems to be slightly improved. He continues to have mild wheeze. He continues to be hypoxic requiring oxygen. He denies any chest pain. Complains of mild shortness of breath. Denies any abdominal pain. No nausea. No vomiting. No diarrhea. He is more awake and alert. REVIEW OF SYSTEMS: Cardiovascular, respiratory, gastrointestinal, neurology, constitutional were all evaluated. PHYSICAL EXAMINATION: Vitals Signs: Temperature of 97.6, pulse of 98, blood pressure 120/90, respiratory rate of 20, saturating at 94% on 2.5 L of oxygen. General Appearance: The patient is well oriented to time, place, and person. Follows commands spontaneously. Cardiovascular System: S1 and S2 heard with normal intensity. Respiratory System: Mild wheeze noted bilaterally. Mild crepitations at the bases. Abdomen: Soft. Bowel sounds positive. Nontender. No rigidity. Extremities: No edema bilateral lower extremities. Neurology: No gross focal neurological deficits. Skin: No acute rash. Psychology: Normal mood. MEDICATIONS: Reviewed. 1. Continue with Tylenol 650 mg every 4 hours as needed for pain. 2. DuoNeb 3 mL nebulizer every 4 hours. 3. Allopurinol 100 mg daily. 4. Norvasc 2.5 mg daily. 5. Artificial Tears q.6 hours as needed. 6. Aspirin 81 mg daily. 7. Zithromax 500 mg daily. 8. Pulmicort 0.5 mg nebulizer twice a day. 9. Coreg 6.25 mg twice a day. 10.Ceftriaxone 1 g daily. 11.Colace 100 mg twice a day as needed for constipation. 12.Lasix 40 mg 1 time now. 13.Hydralazine 50 mg p.o. 3 times a day. 14.NovoLog supplemental scale and NovoLog 30 units 3 times a day with each meals. 15.Levemir 66 units daily. 16.Levothyroxine 150 mcg. 17.Milk of magnesia 30 mL q.12 hourly. 18.Methylprednisone 125 mg IV q.8 hourly. 19.Percocet 5/325 mg every 4 hours as needed. 20.Protonix 40 mg daily. 21.MiraLax 17 g p.o. daily as needed. 22.Simvastatin 20 mg at bedtime. 23.Sodium bicarbonate 650 mg daily. 24.Coumadin, pharmacy to dose for therapeutic INR of 2-3. 25.Ambien 5 mg at bedtime as needed for sleep. LABORATORY DATA: Reviewed. INR 1.9. Sodium 137, potassium 4.5, chloride 104, bicarb 25, BUN 74, creatinine 2.5, glucose 211. ASSESSMENT: 1. Acute bronchitis with possible underlying chronic obstructive pulmonary disease given his history of smoking in the past. 2. Possible pneumonia. 3. Acute hypoxic respiratory failure. 4. Hypertension. 5. Type 2 diabetes mellitus, uncontrolled. 6. Possible sepsis. 7. Hyperlipidemia. 8. Coronary artery disease. 9. Hypothyroidism. 10.Chronic anticoagulation with Coumadin. 11.Gastroesophageal reflux disease. PLAN: 1. Acute bronchitis versus COPD. No history of COPD noted on the chart, but given his chronic history of tobacco use, one has to think of possible underlying COPD undiagnosed. The patient may need pulmonary function test done as an outpatient. We will need to further review the charts from his primary care office. In any case, he is noted to be on nebulizers with DuoNeb and Pulmicort nebulizer. We had to step up on the methylprednisone yesterday as he was continued to wheeze. We will continue the high-dose steroid for now and then change it to 80 mg in a.m. once he is more stable. Continue with Protonix for GI prophylaxis. 2. Acute hypoxic respiratory failure. The patient continues to be hypoxic. Continue with supplemental oxygen to maintain saturations around 95%. We will gradually try to wean him down on the oxygen. 3. Possible pneumonia. Chest x-ray does not show an infiltrate, but the patient was complaining of cough, we have him on antibiotic ceftriaxone and Zithromax. Continue the same. So far, his cultures remain negative. Unsure the patient has mild bronchitis versus early pneumonia. We will closely follow. 4. Type 2 diabetes mellitus, uncontrolled. This is mainly from high dose steroid dosing. We will increase the NovoLog and Levemir dose. Continue with supplemental scale insulin as needed for additional coverage of his blood glucose. 5. Hypertension. The patient's blood pressure seems to be in acceptable range. Continue with Norvasc for now. 6. Chronic anticoagulation. The patient is noted to be on Coumadin, pharmacy to dose the Coumadin for therapeutic INR of 2-3. His INR is down to 1.9 today. We will recheck an INR in a.m. 7. Hypothyroidism. Continue with current dose of levothyroxine. 8. DVT prophylaxis. The patient is currently on Coumadin, continue the same. No indication for heparin products. 9. Possible sepsis, seems to be resolved. The patient was noted to have possible sepsis at the time of admission, with possible pneumonia which seems to be improved with IV antibiotics. 10.With his ongoing COPD exacerbation, bronchitis and respiratory failure, the patient would need to be in the hospital. No indication for discharge at this time. [facility] /[id number]
[2017-01-19] MEDS ORDERED: Warfarin 2.5 MG Tab PO ONE (14:00)
[2017-01-19] MEDS: Simvastatin 10 MG Tab PO SCH (21:49)
[2017-01-20] MEDS: cefTRIAXone 1 GM in Sodium Chloride 0.9% 50 ML IV SCH (01:18)
[2017-01-20] MEDS: Azithromycin 500 MG in Sodium Chloride 0.9% 250 ML IV SCH (01:55)
[2017-01-20] MEDS: Albuterol/Ipratropium 3.0-0.5 MG/3 ML Neb Soln NEB SCH ×6 (03:01→22:34)
[2017-01-20] MEDS: hydrALAZINE 25 MG Tab PO SCH ×3 (06:17→22:32)
[2017-01-20] MEDS: Levothyroxine 150 MCG Tab PO SCH (06:17)
[2017-01-20] MEDS: Budesonide 0.5 MG/2 ML Neb Susp NEB SCH ×2 (07:16→18:04)
[2017-01-20] MEDS: Sodium Chloride 0.9% 10 ML Syringe FLUSH PRN (07:39)
[2017-01-20] MEDS: methylPREDNISolone Sodium Succinate 125 MG/2 ML SDV IVPUSH SCH ×3 (07:39→22:34)
[2017-01-20] MEDS: Insulin Aspart 100 Units/ML 3 ML Pen SUBCUT SCH ×8 (07:49→20:41)
[2017-01-20] MEDS: Allopurinol 100 MG Tab PO SCH (08:45)
[2017-01-20] MEDS: Sodium Bicarbonate 650 MG Tab PO SCH (08:45)
[2017-01-20] MEDS: Tamsulosin 0.4 MG Cap.ER PO SCH (08:45)
[2017-01-20] MEDS: Pantoprazole 40 MG Tab.CR PO SCH (08:45)
[2017-01-20] MEDS: Thiamine 100 MG Tab PO SCH (08:45)
[2017-01-20] MEDS: amLODIPine 5 MG Tab PO SCH (08:46)
[2017-01-20] MEDS: Aspirin 81 MG Tab.EC PO SCH (08:46)
[2017-01-20] MEDS: Carvedilol 6.25 MG Tab PO SCH ×2 (08:47→20:37)
[2017-01-20] MEDS: Insulin Detemir 100 Units/ML 3 ML Pen SUBCUT SCH (08:48)
[2017-01-20] MEDS: FENOFIBRATE 160 MG PO SCH (09:11)
--- NOTE | 2017-01-20 11:51 | PN ---
DATE: 01/20/2017 SUBJECTIVE: Mr. Suzan Ortiz is an 86-year-old male with medical history significant for hypertension, hyperlipidemia, type 2 diabetes mellitus, coronary artery disease, cerebrovascular accident in the past, benign prostatic hypertrophy, atrial fibrillation on chronic anticoagulation with Coumadin admitted with complaints of increasing weakness, tiredness, shortness of breath and noted to have acute bronchitis and possible pneumonia. For the past 24 hours, the patient continues to be hypoxic. He is continued on nasal cannula oxygen. He denies any chest pains. No complaints of shortness of breath. No complaints of abdominal pain. No complaints of nausea, vomiting, or diarrhea. He denied any fevers or chills. REVIEW OF SYSTEMS: Cardiovascular, respiratory, gastrointestinal, neurology, constitutional were all evaluated. PHYSICAL EXAMINATION: Vital signs: Temperature of 98.2, pulse of 86, blood pressure 108/63, saturating at 89% on room air requiring 2 L of oxygen. General Appearance: The patient is well oriented to time, place, and person. Follows commands spontaneously. Cardiovascular System: S1, S2 heard with normal intensity. No gallops. Respiratory System: Mild crepitations at the bases. Mild wheeze noted. Abdomen: Soft. Bowel sounds positive. Nontender. No rigidity. Extremities: Mild edema in bilateral lower extremities. Neurology: No gross focal neurological deficit appreciated. Normal mood. MEDICATIONS: Reviewed. 1. Continue with Tylenol 650 every 4 hours as needed for pain. 2. DuoNeb 3 mL nebulizer every 4 hours. 3. Allopurinol 100 mg daily. 4. Norvasc 2.5 mg daily. 5. Aspirin 81 mg daily. 6. Tessalon 100 mg p.o. 4 times a day for cough. 7. Pulmicort 0.5 mg nebulizer twice a day. 8. Coreg 6.25 mg twice a day. 9. Colace 100 mg twice a day. 10.Robitussin 100 mg q.6 hours as needed. 11.Hydralazine 50 mg 3 times a day. 12.NovoLog supplemental scale. 13.NovoLog 30 units 3 times a day. 14.Levemir 66 units at bedtime. 15.Levothyroxine 150 mcg daily. 16.Methylprednisone 80 mg IV q.8 hourly. 17.Zofran 4 mg every 4 hours as needed for nausea. 18.Percocet 5/325 mg every 4 hours as needed for pain. 19.Protonix 40 mg daily. 20.MiraLax 17 g p.o. daily. 21.Zocor 20 mg at bedtime. 22.Sodium bicarbonate 650 mg daily. 23.Flomax 0.4 mg daily. 24.Thiamine 100 mg daily. 25.Coumadin, pharmacy to dose. 26.Ambien 5 mg at bedtime as needed for sleep. LABORATORY DATA: Reviewed. WBC 11.5, hemoglobin 14.1, hematocrit 43.7, and platelet count 274. INR 1.6. Sodium 136, potassium 4.4, chloride 101, bicarb 26, BUN 86, creatinine 2.5, and glucose 258. ASSESSMENT: 1. Acute bronchitis versus early pneumonia. 2. Possible underlying chronic obstructive pulmonary disease undiagnosed with history of smoking in the past. 3. Acute hypoxic respiratory failure. 4. Hypertension. 5. Type 2 diabetes mellitus. 6. Possible sepsis. 7. Hyperlipidemia. 8. Coronary artery disease. 9. Hypothyroidism. 10.Chronic anticoagulation with Coumadin. 11.Gastroesophageal reflux disease. PLAN: 1. Acute bronchitis versus chronic obstructive pulmonary disease. Patient was noted to have increased wheezing on this admission. He required nebulizer treatment and IV methylprednisone. He is on DuoNeb and Pulmicort nebulizers, we will continue the same. We will slow down on the methylprednisone to 80 mg q.8 hourly and we will closely follow. The patient is encouraged to follow up with [facility]monary [facility] as an outpatient for further evaluation with a formal pulmonary function test. 2. Acute hypoxic respiratory failure. The patient continues to be hypoxic. His chest x-ray done 2 days back did not show any evidence of CHF exacerbation or any acute infiltrates. We will get a CT scan of the chest without contrast, but could not use IV contrast secondary to his underlying chronic kidney disease. We will get the plain CT scan for further evaluation. We will also obtain Doppler of the lower extremities to rule out any DVT or to explain for his hypoxia. 3. Hypertension, well controlled. Continue current antihypertensive medications. Try to avoid any hypotensive episodes. 4. Type 2 diabetes mellitus, uncontrolled. This is mainly from steroid induced. We have been increasing his NovoLog and also Levemir. Continue supplemental scale to optimize his blood sugars. 5. Possible sepsis, this is resolved. The patient was noted to have tachycardia, tachypnea, and leukocytosis with underlying possible pneumonia at the time of admission, which seems to be resolved. Lactic acid within normal limits. 6. Coronary artery disease. The patient denies any ongoing chest pains. The patient had a normal B-natriuretic peptide initially but after giving some IV fluids secondary to his acute on chronic renal failure, the patient's BNP has increased. We will recheck a BMP at this time. 7. Acute on chronic renal failure. This seems to be resolved. His creatinine is back to baseline function. Try to avoid any nephrotoxic agents. Dose adjust medications for renal function though his BUN seems to be slightly elevated. 8. We will have Physical Therapy and Occupational Therapy evaluate and treat the patient. 9. Patient is at high risk for possible admission to swing bed with continued cares. 10.Discussed with family members at bedside. [facility] /[id number]
[2017-01-20] MEDS ORDERED: Warfarin 2 MG Tab PO ONE (14:00)
--- NOTE | 2017-01-20 16:05 | US ---
Clinical history: 86-year-old male with peripheral edema, hypoxia and shortness of breath. R/o DVT. Interpretation: Negative exam. No sign of intraluminal echogenic thrombus and normal compressibility deep veins of the groin, thigh and knees both lower extremities this elderly male at bed rest. Satisfactory augmentation venous waveforms demonstrated respectively in both popliteal, superficial and common femoral arteries i.e. no current evidence deep vein thrombosis legs. CONCLUSION: Negative exam.
--- NOTE | 2017-01-20 16:11 | CT ---
Clinical history: 86-year-old hypoxic male with wheezing and shortness of breath reported recent [facility] st radiograph to have "cardiomegaly minimal by basilar atelectasis". TECHNIQUE: Volume acquisition of data from the chest (bony thorax, heart, mediastinum and lung field s) obtained without oral or IV contrast were patient was lying supine on the Siemens multi slice CT scanner [place], [place]. All data archived in the PACS system for [facility], reformatting and study (lung/mediastinal windows). Interpretation: 1. Cardiomegaly. Calcification coronary arteries and ectatic thoracic aorta. No aneurysm. No pericar dial effusion. No current signs of alveolar edema. Sternotomy wires. 2. Posterior segment left lower lobe atelectasis and/or infiltrate with underlying ipsilateral depen dent pleural effusion (small effusion in the contralateral dependent pleural space). Differential di agnostic considerations include atelectasis/collapse, left lower lobe pneumonia, and pulmonary embol ic disease with infarct. 3. No sign of focal lung nodule or mass lesion and no abnormal hilar or mediastinal lymphadenopathy. No bronchial "cuffing" or air trapping i.e. no reactive airway disease. 4. No other focal lobar consolidation (infiltrate or atelectasis). Respiratory motion artifact. 5. 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 CONCLUSION: Cardiomegaly with small bibasilar dependent pleural effusions (left greater than right). Probable chronic CHF with underlying lower lobe atelectasis (vs. infiltrate or infarct).
[2017-01-20] MEDS: Simvastatin 10 MG Tab PO SCH (20:36)
[2017-01-21] MEDS: cefTRIAXone 1 GM in Sodium Chloride 0.9% 50 ML IV SCH (00:21)
[2017-01-21] MEDS: Azithromycin 500 MG in Sodium Chloride 0.9% 250 ML IV SCH (00:57)
[2017-01-21] MEDS: Albuterol/Ipratropium 3.0-0.5 MG/3 ML Neb Soln NEB SCH ×5 (03:06→23:15)
[2017-01-21] MEDS: Levothyroxine 150 MCG Tab PO SCH (05:29)
[2017-01-21] MEDS: methylPREDNISolone Sodium Succinate 125 MG/2 ML SDV IVPUSH SCH ×2 (05:29→19:42)
[2017-01-21] MEDS: hydrALAZINE 25 MG Tab PO SCH ×3 (05:30→22:11)
[2017-01-21] MEDS: Budesonide 0.5 MG/2 ML Neb Susp NEB SCH ×2 (07:14→18:25)
[2017-01-21] MEDS: Insulin Aspart 100 Units/ML 3 ML Pen SUBCUT SCH ×7 (08:14→22:06)
[2017-01-21] MEDS: Insulin Detemir 100 Units/ML 3 ML Pen SUBCUT SCH (08:24)
[2017-01-21] MEDS: amLODIPine 5 MG Tab PO SCH (08:39)
[2017-01-21] MEDS: Carvedilol 6.25 MG Tab PO SCH ×2 (08:40→22:18)
[2017-01-21] MEDS: Sodium Bicarbonate 650 MG Tab PO SCH (08:40)
[2017-01-21] MEDS: Thiamine 100 MG Tab PO SCH (08:41)
[2017-01-21] MEDS: Pantoprazole 40 MG Tab.CR PO SCH (08:41)
[2017-01-21] MEDS: Tamsulosin 0.4 MG Cap.ER PO SCH (08:41)
[2017-01-21] MEDS: Aspirin 81 MG Tab.EC PO SCH (08:42)
[2017-01-21] MEDS: Allopurinol 100 MG Tab PO SCH (08:42)
[2017-01-21] MEDS: FENOFIBRATE 160 MG PO SCH (08:44)
--- NOTE | 2017-01-21 12:06 | PN ---
DATE: 01/21/2017 HISTORY OF PRESENT ILLNESS: Mr. Suzan Ortiz is an 86-year-old male with medical history significant for hypertension, hyperlipidemia, type 2 diabetes mellitus, coronary artery disease, cerebrovascular accident in the past, benign prostatic hypertrophy, atrial fibrillation on chronic anticoagulation with Coumadin, admitted with complaints of increasing weakness, tiredness, shortness of breath. Noted to have acute bronchitis and pneumonia. For the last 24 hours, the patient had a CT scan of the chest, which showed clearly evidence of pneumonia involving the left lower lobe along with pleural effusion bilaterally, but mostly on the left side. The patient denies any ongoing chest pains. Denies any shortness of breath. No abdominal pain. No nausea. No vomiting. No diarrhea. Continues to be on nasal cannula oxygen secondary to hypoxic respiratory failure. REVIEW OF SYSTEMS: Cardiovascular, respiratory, gastrointestinal, neurology, constitutional were all evaluated. PHYSICAL EXAMINATION: Vital signs: Temperature of 97.8, pulse of 88, blood pressure 113/67, respiratory rate of 21, saturating at 95% on 2 L of oxygen. General Appearance: The patient is well oriented to time, place, and person. Follows commands spontaneously. Cardiovascular system: S1, S2 heard with normal intensity. No gallops. Respiratory system: Clear to auscultation bilaterally except for crepitations at the bases, dull to percussion on the left lower lobe. Extremities: Mild edema in bilateral lower extremities. Neurology: No gross focal neurological deficits. Skin: No acute rash noted. MEDICATIONS: 1. Tylenol 650 mg every 4 hours as needed for pain. 2. DuoNeb 3 mL nebulizer every 8 hours. 3. Allopurinol 100 mg daily. 4. Norvasc 2.5 mg daily. 5. Aspirin 81 mg daily. 6. Zithromax 500 mg daily. 7. Pulmicort 0.5 mg nebulizer twice a day. 8. Coreg 6.25 mg twice a day. 9. Colace 100 mg twice a day. 10.Lasix 40 mg daily. 11.Hydralazine 50 mg three times a day. 12.NovoLog supplemental scale. 13.NovoLog 30 units three times a day with each meals. 14.Levemir 66 units daily. 15.Levothyroxine 150 mcg daily. 16.Methylprednisone 60 mg IV q.12 hourly. 17.Percocet 5/325 mg every 4 hours as needed. 18.Simvastatin 20 mg at bedtime. 19.Flomax 0.4 mg daily. 20.Thiamine 100 mg daily. 21.Coumadin pharmacy to dose for therapeutic INR of 2-3. ASSESSMENT: 1. Pneumonia. 2. Pleural effusion. 3. Acute bronchitis with possible chronic obstructive pulmonary disease exacerbation. 4. Hypertension. 5. Type 2 diabetes mellitus, uncontrolled. 6. Acute hypoxic respiratory failure. 7. Possible sepsis. 8. Hyperlipidemia. 9. Coronary artery disease. 10.Hypothyroidism. 11.Chronic anticoagulation with Coumadin. 12.Gastroesophageal reflux disease. PLAN: 1. Pneumonia. The patient's CT scan of the chest showed evidence of infiltrate on the left lower lobe consistent with pneumonia. So far, his cultures remain negative. The patient is currently on ceftriaxone and Zithromax, continue the same. He remains afebrile. 2. Acute bronchitis. The patient was noted to have acute wheezing noted on this admission. He had history of smoking in the past, so unsure if the patient has any underlying undiagnosed COPD. In any case, the patient has responded well to the nebulizer treatment. We will change the DuoNeb to every 8 hourly. He has been on high-dose steroids, we will cut down the steroids to 60 mg IV methylprednisone q.12 hourly, and we will closely follow. 3. Acute hypoxic respiratory failure. The patient continues to be on nasal cannula oxygen. This could be resulting from his underlying pneumonia and also pleural effusion. Continue supplemental oxygen to maintain a saturation of 95%. 4. Pleural effusion. The patient is noted to have bilateral pleural effusion on the chest CT scan, but mostly on the left side. We will continue with Lasix. The patient might need thoracocentesis down the road if the pleural effusion persist. 5. Hypertension, normal range. We will continue with current antihypertensive medication. 6. Type 2 diabetes mellitus, uncontrolled. This could be resulting from steroid dosing. We will decrease the methylprednisone to 60 mg IV q.12 hourly. Continue with supplemental scale insulin as needed for additional coverage of his blood glucose. 7. Possible sepsis at the time of admission, which seems to be resolved at this time. 8. Hypothyroidism. The patient is currently on levothyroxine, continue the same. 9. Gastroesophageal reflux disease. Continue with Protonix. 10.DVT prophylaxis. The patient is currently on Coumadin. 11.Chronic anticoagulation with Coumadin. Pharmacy to dose the Coumadin for therapeutic INR of 2-3. His INR has been trending down to 1.5. 12.The patient had an ultrasound Doppler of the lower extremities, and no evidence of DVT noted at this time. 13.Discussed with family members at bedside. 14.dockworker working on placement. 15.We will have Physical Therapy and Occupational Therapy evaluate and treat the patient. [facility] /[id number]
[2017-01-21] MEDS: Furosemide 40 MG Tab PO SCH (12:33)
[2017-01-21] MEDS ORDERED: Warfarin 2 MG Tab PO ONE (14:00)
[2017-01-21] MEDS: Simvastatin 10 MG Tab PO SCH (22:11)
[2017-01-22] MEDS: Sodium Chloride 0.9% 10 ML Syringe FLUSH PRN ×5 (00:18→06:03)
[2017-01-22] MEDS: cefTRIAXone 1 GM in Sodium Chloride 0.9% 50 ML IV SCH (00:22)
[2017-01-22] MEDS: Azithromycin 500 MG in Sodium Chloride 0.9% 250 ML IV SCH (00:55)
[2017-01-22] MEDS: Levothyroxine 150 MCG Tab PO SCH (05:53)
[2017-01-22] MEDS: hydrALAZINE 25 MG Tab PO SCH ×3 (05:54→21:27)
[2017-01-22] MEDS: methylPREDNISolone Sodium Succinate 125 MG/2 ML SDV IVPUSH SCH ×2 (05:58→17:39)
[2017-01-22] MEDS: Budesonide 0.5 MG/2 ML Neb Susp NEB SCH ×2 (07:56→18:14)
[2017-01-22] MEDS: Albuterol/Ipratropium 3.0-0.5 MG/3 ML Neb Soln NEB SCH ×3 (07:56→23:20)
[2017-01-22] MEDS: Insulin Aspart 100 Units/ML 3 ML Pen SUBCUT SCH ×7 (08:40→21:33)
[2017-01-22] MEDS: Insulin Detemir 100 Units/ML 3 ML Pen SUBCUT SCH (08:41)
[2017-01-22] MEDS: Thiamine 100 MG Tab PO SCH (08:42)
[2017-01-22] MEDS: Tamsulosin 0.4 MG Cap.ER PO SCH (08:42)
[2017-01-22] MEDS: Furosemide 40 MG Tab PO SCH (08:43)
[2017-01-22] MEDS: amLODIPine 5 MG Tab PO SCH (08:43)
[2017-01-22] MEDS: Sodium Bicarbonate 650 MG Tab PO SCH (08:43)
[2017-01-22] MEDS: Carvedilol 6.25 MG Tab PO SCH ×2 (08:47→21:26)
[2017-01-22] MEDS: Pantoprazole 40 MG Tab.CR PO SCH (08:47)
[2017-01-22] MEDS: Aspirin 81 MG Tab.EC PO SCH (08:48)
[2017-01-22] MEDS: Allopurinol 100 MG Tab PO SCH (08:48)
[2017-01-22] MEDS: FENOFIBRATE 160 MG PO SCH (08:49)
[2017-01-22] MEDS ORDERED: Warfarin 2 MG Tab PO ONE (14:30)
[2017-01-22] MEDS: Simvastatin 10 MG Tab PO SCH (21:27)
[2017-01-23] MEDS: Sodium Chloride 0.9% 10 ML Syringe FLUSH PRN ×3 (06:41→17:50)
[2017-01-23] MEDS: methylPREDNISolone Sodium Succinate 125 MG/2 ML SDV IVPUSH SCH ×2 (06:42→17:51)
[2017-01-23] MEDS: Levothyroxine 150 MCG Tab PO SCH (06:42)
[2017-01-23] MEDS: hydrALAZINE 25 MG Tab PO SCH ×2 (06:43→13:23)
[2017-01-23] MEDS: Albuterol/Ipratropium 3.0-0.5 MG/3 ML Neb Soln NEB SCH ×2 (07:21→15:30)
[2017-01-23] MEDS: Budesonide 0.5 MG/2 ML Neb Susp NEB SCH ×2 (07:21→17:54)
--- NOTE | 2017-01-23 08:13 | PN ---
DATE: 01/22/2017 HISTORY OF PRESENT ILLNESS: Mr. Mares is an 86-year-old gentleman, who lives at home with his , Yesica, who is his primary caregiver. Mr. Mares has a history of previous CVA with limited mobility and also has history of hypertension, type 2 diabetes, dyslipidemia, coronary artery disease, and chronic AFib, on anticoagulation. He had presented to the emergency room with increasing weakness, fatigue, and cough of 2 to 3 days duration. A single-view chest x-ray taken on the day of admission did not completely rule in or rule out the possibility of infiltrates versus mild cardiac decompensation. Lab work on the day of admission showed a white count of 20,000, which michelle to 29,000 the following day with a left shift. D-dimer was 473. Troponin was negative. BNP was 50. He has renal insufficiency with BUN and creatinine of 38 and 2.7 with a GFR of 23 and a creatinine clearance of 18. Repeat lab work the following day showed increase in BUN and creatinine to 45 and 3.0 and white count michelle to 29,000. His usual medications were continued and he was started on azithromycin and ceftriaxone to cover for the possibility of pneumonia. He was also started on tapering doses of IV steroids. His usual medications were continued as well as Coumadin. LABORATORY STUDIES: Repeat lab work yesterday showed white count down to 13,000. INR today was 1.2. Electrolytes were normal. BUN and creatinine were 99 and 2.3 with a GFR of 27. Blood sugars were monitored and vary over the course of the day and are being covered with NovoLog with meals as well as his usual dose of Levemir. He continues on bronchodilator therapy with nebulized DuoNeb and Pulmicort. His Solu-Medrol was tapered down today to 40 mg every 12 hours. Review of his clinical data shows that he is taking in adequate fluids. He is voiding. Appetite is good. He is consuming 100% of his meals. OBJECTIVE: VITAL SIGNS: Stable. Blood pressure is 113/69, pulse 88, respiratory rate 20, and oxygen saturation 93% on room air. He is afebrile. HEENT: Unremarkable. ENT was clear. CHEST: Showed clear, but diminished bilateral breath sounds without any wheezes. HEART: Showed regular rate and rhythm. ABDOMEN: Obese and benign. NEUROLOGIC: He was grossly intact. His daily PT, INRs and Coumadin is being managed by pharmacy. We spoke at length with Mrs. Mares. We also spoke with therapy. Mr. Mares has been resistant to therapy. At home, she does stand and pivot with him and does all of his transfers by herself. This afternoon we have Claire Cunningham from [facility] stopping by to speak with Mrs. Mares about increasing their services at home. She is adamant that she would like him to remain at home. The therapist and I did talk with her about the possibility of getting a lift for the house to help her move him as he really does not help very much. They are both in their 80s. She has a bad shoulder. She is adamant that she wants to keep him at home and not place him in a [facility], but she also was reluctant to accept the idea of the lift and she said that they do not have a very big house and the house is very cluttered with personal possessions and she was unwilling to make any changes in the house to make it easier to care for him. After discussing all this at length over the course of the day, she decided that she would not pursue getting a lift and she and Claire Cunningham will workout what additional services can be provided at home. It is unclear at this point, whether he will be discharged before the weekend or if he will be discharged next week. He really is not a candidate for swing bed because he has been refusing to work with therapy on an ongoing and regular basis. This was explained to Mrs. Mares as well. His IV antibiotics were discontinued today as he has had 7 complete days of IV ceftriaxone and azithromycin. We are also tapering down his IV Solu-Medrol and this was reduced to 40 mg every 12 hours and we will reduce this again tomorrow and we will switch him to oral antibiotics prior to discharge to home. No other changes are made today. [facility] /[id number] MTDSrikanth
[2017-01-23] MEDS: Insulin Aspart 100 Units/ML 3 ML Pen SUBCUT SCH ×6 (08:51→17:47)
[2017-01-23] MEDS: Insulin Detemir 100 Units/ML 3 ML Pen SUBCUT SCH (10:21)
[2017-01-23] MEDS: Furosemide 40 MG Tab PO SCH (10:35)
[2017-01-23] MEDS: Allopurinol 100 MG Tab PO SCH (10:35)
[2017-01-23] MEDS: Pantoprazole 40 MG Tab.CR PO SCH (10:35)
[2017-01-23] MEDS: Aspirin 81 MG Tab.EC PO SCH (10:37)
[2017-01-23] MEDS: Sodium Bicarbonate 650 MG Tab PO SCH (10:37)
[2017-01-23] MEDS: Carvedilol 6.25 MG Tab PO SCH (10:37)
[2017-01-23] MEDS: Thiamine 100 MG Tab PO SCH (10:37)
[2017-01-23] MEDS: amLODIPine 5 MG Tab PO SCH (10:38)
[2017-01-23] MEDS: Tamsulosin 0.4 MG Cap.ER PO SCH (10:40)
[2017-01-23] MEDS: FENOFIBRATE 160 MG PO SCH (10:46)
[2017-01-23] MEDS ORDERED: Warfarin 2 MG Tab PO ONE (14:00)
[2017-01-23 20:29] VITALS: BP 125/77
--- NOTE | 2017-01-29 08:29 | EKG ---
01/15/2017- ELVIRA RIVERO - EKG done on this 86-year-old male showing atrial fibrillation with a heart rate of 81 beats per minute, otherwise no acute or new changes. [facility] /[id number]
--- NOTE | 2017-02-09 23:56 | DISCH ---
DISCHARGE DIAGNOSES: 1. Pneumonia. 2. Hypertension. 3. Hypoxic respiratory failure. 4. Type 2 diabetes. 5. Coronary artery disease. 6. Cerebrovascular disease with history of previous ischemic stroke. 7. Atrial fibrillation, on chronic anticoagulation on Coumadin. 8. Generalized weakness. BRIEF HISTORY OF PRESENT ILLNESS: Mr. Mares is an 86-year-old gentleman who presented to the emergency room with increasing weakness, fatigue and cough over the previous 2-3 days. Single-view chest x-ray taken on day of admission did not completely rule in or rule out possibility of infiltrates versus mild cardiac decompensation. Lab work showed an elevated white count of 20,000. D-dimer was 473. He was found to have renal insufficiency. He was admitted for treatment of possible pneumonia. PERTINENT LABS AND X-RAYS: CBC on day of admission showed a white count of 20,000, this michelle to 28,900 on the following day. Differential showed a left shift hemoglobin and hematocrit of 14.5 and 45.4. White count declined to 12,900 prior to admission to [facility]. Mr. Mares is on chronic anticoagulation with Coumadin and INR was checked under regular basis and Coumadin dosing was managed by pharmacy. He initially had an INR of about 2.0, but then INR declined from 1.6 down to 1.2. I discussed this with the pharmacist and it was felt that this was possibly a paradoxical effect of the antibiotics and steroids. Chemistry showed normal electrolytes. BUN and creatinine initially were 38 and 2.7 with a GFR of 23 and a creatinine clearance of 18. Prior to discharge, BUN and creatinine were 99 and 2.3 with a GFR of 27 and a creatinine clearance of 20. LFTs were unremarkable. Albumin was 4.1. Troponin was less than 0.02. BNP was in the normal range of 50. TSH was normal at 2.40. His blood sugars were followed throughout the admission and ranged from the upper 100s to as high as 300. His usual medications were continued as well as a NovoLog sliding scale. A single-view chest x-ray was taken on day of admission and showed mild basilar opacities and could not be distinguished from cardiac decompensation versus a superimposed basilar infiltrate. A CT scan of the chest was obtained during the admission and showed cardiomegaly with small bibasilar- dependent pleural effusions on the left, greater than the right. There was probable chronic congestive heart failure with underlying left lower lobe atelectasis versus infiltrate. A venous Doppler study was performed of the bilateral lower extremities and was a negative exam. HOSPITAL COURSE: Mr. Mares slowly improved. He was taking in adequate fluids. He was voiding. Appetite was good. He was consuming 100% of his meals by the time of admission to swing bed. Initially, Mrs. Mares wanted to take her home. They were resistant to idea of therapy. They have "a system" at home, where she stands and pivots him and does all the transfers by herself. She was seen by a social work faculty member from [facility] during the admission to see if they could help them and increase services at home. Mrs. Mares is adamant that she would like him to return home and is willing to have him in swing bed for a while to see if he can gain strength and increase his mobility somewhat. For the pneumonia, he was treated with Rocephin and azithromycin as well as IV Solu-Medrol. He continue with bronchodilator therapy. His diabetes was managed with his usual dose of Levemir, as well as NovoLog coverage at meals. He gradually improved and was clinically stable and now will be discharged today to [facility] to continue with occupational and physical therapy. PHYSICAL EXAMINATION: Vital Signs: Today on the day of discharge to [facility]; he is hemodynamically stable. Blood pressure is 125/77, pulse 89, and irregular respiratory rate 20, oxygen saturation 91% on room air. He is afebrile. HEENT: Unremarkable. ENT was clear. Chest: Showed clear, but diminished bilateral breath sounds with no active wheezing. Heart: Showed regular rate and rhythm. Abdomen: Obese and benign. Extremities: Showed no gross deficits, but he is generally weak. He requires assistance for ADLs. DISCHARGE MEDICATIONS: 1. He has completed 7 days of IV ceftriaxone, azithromycin; the antibiotics were discontinued. 2. We continue to taper his IV Solu-Medrol and this will be switched to oral steroids after the taper. 3. The remainder of his medications were continued unchanged. Please see the MAR and the home med list for complete list. ALLERGIES: Codeine, to which he is intolerant, causes nausea and vomiting. Also has allergies to cortisone, which he says makes him short of breath, although he has tolerated the Solu-Medrol without any issues. CONDITION AT THE TIME OF DISCHARGE: From acute care and admission to [facility] bed, hemodynamically and neurologically stable. [facility] /[id number] MTDD
== END 2017-01-23 17:46 | disposition swing bed (61) | DRG 871 ==
LOC: DL.ED 22:33 → DL.MS 23:37 → UNDOADMIN 23:37 → DL.MS 01-16 00:39
PROVIDERS: ADMIT Internal Medicine; ATTEND Internal Medicine
DX: A41.9 Sepsis, unspecified organism (principal); J18.9 Pneumonia, unspecified organism; J96.21 Acute and chronic respiratory failure with hypoxia; F17.200 Nicotine dependence, unspecified, uncomplicated; J44.0 Chronic obstructive pulmonary disease with (acute) lower respiratory infection; J44.1 Chronic obstructive pulmonary disease with (acute) exacerbation; I25.810 Atherosclerosis of coronary artery bypass graft(s) without angina pectoris; N17.9 Acute kidney failure, unspecified; E11.65 Type 2 diabetes mellitus with hyperglycemia; Z79.4 Long term (current) use of insulin; I12.9 Hypertensive chronic kidney disease with stage 1 through stage 4 chronic kidney disease, or unspecified chronic kidney disease; N18.9 Chronic kidney disease, unspecified; E78.5 Hyperlipidemia, unspecified; Z86.73 Personal history of transient ischemic attack (TIA), and cerebral infarction without residual deficits; I48.91 Unspecified atrial fibrillation; Z79.01 Long term (current) use of anticoagulants; K21.9 Gastro-esophageal reflux disease without esophagitis; E03.9 Hypothyroidism, unspecified; N40.0 Benign prostatic hyperplasia without lower urinary tract symptoms; Z96.659 Presence of unspecified artificial knee joint; Z79.899 Other long term (current) drug therapy; E66.9 Obesity, unspecified; R53.81 Other malaise; Z87.891 Personal history of nicotine dependence
CPT/HCPCS: 36415; 71010; 80053; 83605; 83880; 84443; 84484; 85025; 85379; 87040; 93005 ×2; 96365; 96375; 99285; J0696; J2930; J7050; 71250; 80048; 82962; 85027; 85610; 87070; 87205; 87804; 93970; 94010; 94640; 94667; 94668; 97110-GO; 97110-GP; 97162-GP; 97166-GO; 97530-GO; 97530-GP; A9270-GY; J0456; J1815-GY; J1940; J2920; J7030

== ENCOUNTER 2017-01-23 15:03 | Inpatient (IN) | payer MEDICARE, BC, MEDICAID ==
[2017-01-23] MEDS ORDERED: Non-Formulary Medication 1 Each (Hydralazine [Apresoline] 50 MG) PO SCH (19:15)
[2017-01-23] MEDS ORDERED: Acetaminophen 650 MG Supp RECTAL PRN (19:24)
[2017-01-23] MEDS ORDERED: Docusate Sodium 100 MG Cap PO PRN (19:24)
[2017-01-23] MEDS ORDERED: Polyvinyl Alcohol 1.4% Ophth Soln 15 ML Bottle EYEBOTH PRN (19:24)
[2017-01-23] MEDS ORDERED: Non-Formulary Medication 1 Each (Simvastatin [Simvastatin] 20 MG) PO SCH (21:00)
[2017-01-23] MEDS ORDERED: Insulin Aspart 100 Units/ML 3 ML Pen SUBCUT SCH (21:00)
[2017-01-23] MEDS: Sodium Chloride 0.9% 10 ML Syringe FLUSH SCH (21:30)
[2017-01-23] MEDS: methylPREDNISolone Sodium Succinate 40 MG/1 ML SDV IVPUSH SCH (21:30)
[2017-01-23] MEDS: Carvedilol 6.25 MG Tab PO SCH (21:31)
[2017-01-23] MEDS: hydrALAZINE 25 MG Tab PO SCH (21:31)
[2017-01-23] MEDS: Simvastatin 10 MG Tab PO SCH (21:34)
[2017-01-23] MEDS: Insulin Aspart 100 Units/ML 3 ML Pen SUBCUT SCH (21:35)
[2017-01-23] MEDS: Albuterol/Ipratropium 3.0-0.5 MG/3 ML Neb Soln NEB SCH (22:45)
[2017-01-24] MEDS: guaiFENesin 100 MG/5 ML Soln 5 ML UD Cup PO PRN (03:30)
[2017-01-24] MEDS: Levothyroxine 150 MCG Tab PO SCH (05:52)
[2017-01-24] MEDS: hydrALAZINE 25 MG Tab PO SCH ×3 (05:52→20:54)
[2017-01-24] MEDS: Acetaminophen 325 MG Tab PO PRN (05:59)
[2017-01-24] MEDS: Budesonide 0.5 MG/2 ML Neb Susp NEB SCH ×3 (07:40→18:04)
[2017-01-24] MEDS: Albuterol/Ipratropium 3.0-0.5 MG/3 ML Neb Soln NEB SCH ×3 (07:40→23:03)
[2017-01-24] MEDS ORDERED: Aspirin 81 MG Tab.EC PO SCH (08:00)
[2017-01-24] MEDS ORDERED: Allopurinol 100 MG Tab PO SCH (08:00)
[2017-01-24] MEDS: Insulin Aspart 100 Units/ML 3 ML Pen SUBCUT SCH ×7 (08:10→20:56)
[2017-01-24] MEDS: methylPREDNISolone Sodium Succinate 40 MG/1 ML SDV IVPUSH SCH ×2 (08:24→19:41)
[2017-01-24] MEDS: Sodium Bicarbonate 650 MG Tab PO SCH (08:25)
[2017-01-24] MEDS: Thiamine 100 MG Tab PO SCH (08:25)
[2017-01-24] MEDS: Aspirin 81 MG Tab.EC PO SCH (08:25)
[2017-01-24] MEDS: Tamsulosin 0.4 MG Cap.ER PO SCH (08:26)
[2017-01-24] MEDS: Allopurinol 100 MG Tab PO SCH (08:26)
[2017-01-24] MEDS: Carvedilol 6.25 MG Tab PO SCH ×2 (08:26→20:54)
[2017-01-24] MEDS: Pantoprazole 40 MG Tab.CR PO SCH (08:26)
[2017-01-24] MEDS: amLODIPine 5 MG Tab PO SCH (08:27)
[2017-01-24] MEDS: Fenofibrate Nanocrystallized 145 MG Tab PO SCH (08:27)
[2017-01-24] MEDS ORDERED: Furosemide 40 MG Tab PO SCH (09:00)
[2017-01-24] MEDS ORDERED: Fenofibrate Nanocrystallized 145 MG Tab PO SCH (09:00)
[2017-01-24] MEDS ORDERED: amLODIPine 5 MG Tab PO SCH (09:00)
[2017-01-24] MEDS ORDERED: Warfarin 2 MG Tab PO ONE (14:00)
[2017-01-24] MEDS: Benzonatate 100 MG Cap PO PRN (19:40)
[2017-01-24] MEDS: Sodium Chloride 0.9% 10 ML Syringe FLUSH SCH (19:40)
[2017-01-24] MEDS: Simvastatin 10 MG Tab PO SCH (20:54)
[2017-01-25] MEDS: guaiFENesin 100 MG/5 ML Soln 5 ML UD Cup PO PRN (02:08)
[2017-01-25] MEDS: hydrALAZINE 25 MG Tab PO SCH ×3 (05:01→21:11)
[2017-01-25] MEDS: Levothyroxine 150 MCG Tab PO SCH (05:01)
[2017-01-25] MEDS: Budesonide 0.5 MG/2 ML Neb Susp NEB SCH ×3 (08:40→17:26)
[2017-01-25] MEDS: Albuterol/Ipratropium 3.0-0.5 MG/3 ML Neb Soln NEB SCH ×3 (08:40→22:44)
[2017-01-25] MEDS: Insulin Aspart 100 Units/ML 3 ML Pen SUBCUT SCH ×7 (09:07→21:10)
[2017-01-25] MEDS: methylPREDNISolone Sodium Succinate 40 MG/1 ML SDV IVPUSH SCH (09:08)
[2017-01-25] MEDS: Aspirin 81 MG Tab.EC PO SCH (09:09)
[2017-01-25] MEDS: Allopurinol 100 MG Tab PO SCH (09:09)
[2017-01-25] MEDS: Tamsulosin 0.4 MG Cap.ER PO SCH (09:09)
[2017-01-25] MEDS: Thiamine 100 MG Tab PO SCH (09:09)
[2017-01-25] MEDS: Sodium Bicarbonate 650 MG Tab PO SCH (09:09)
[2017-01-25] MEDS: Carvedilol 6.25 MG Tab PO SCH ×2 (09:10→21:11)
[2017-01-25] MEDS: amLODIPine 5 MG Tab PO SCH (09:10)
[2017-01-25] MEDS: Pantoprazole 40 MG Tab.CR PO SCH (09:11)
[2017-01-25] MEDS: Fenofibrate Nanocrystallized 145 MG Tab PO SCH (09:11)
[2017-01-25] MEDS ORDERED: Warfarin 2 MG Tab PO ONE ×2 (09:30→14:00)
[2017-01-25] MEDS: Simvastatin 10 MG Tab PO SCH (21:12)
[2017-01-26] MEDS: Levothyroxine 150 MCG Tab PO SCH (05:42)
[2017-01-26] MEDS: hydrALAZINE 25 MG Tab PO SCH ×3 (05:42→20:41)
[2017-01-26] MEDS: Acetaminophen 325 MG Tab PO PRN ×2 (06:00→17:02)
--- NOTE | 2017-01-26 07:32 | HP ---
REASON FOR ADMISSION TO SWING BED: Mr. Mares will continue to work with Physical and Occupational Therapy for strengthening prior to planned discharge back to home. HISTORY OF PRESENT ILLNESS: Mr. Mares is an 86-year-old gentleman, who lives at home with his , Yesica, who is his primary caregiver. Mr. Mares presented to the emergency room with increasing weakness, fatigue, and a cough of 2-3 days duration. Single-view chest x-ray taken on the day of admission did not completely rule in or out the possibility of infiltrates versus mild cardiac decompensation. Lab work on the day of admission showed a white count of 20,000, which michelle to 29,000 the following day with a left shift. D-dimer was 473, troponin was negative. BNP was 50. He had renal insufficiency with BUN and creatinine of 38 and 2.7 and GFR of 23 and a creatinine clearance of 18. He was admitted, his usual medications were continued and he was started on azithromycin and ceftriaxone to cover for the possibility of pneumonia. He was also started on tapering doses of IV steroids. He is on chronic Coumadin anticoagulation and this was continued. Mr. Mares has had a stroke in the past and has limited mobility. His does all of his cares including transfers. She would like to see him return to home and does not wish to pursue any type of placement outside the home, After much discussion with Mrs. Mares, as well as nursing and therapy staff, it was decided that he would be admitted to swing bed to work with them in an effort to strengthen him and increase his mobility so that MrMaine and Mrs. Mares can continue living at home with additional care in the home. One of the social workers from [facility] did come to the hospital to speak with Mrs. Mares. They reviewed possible increase in home-based services in order to make the transition back to home easier for both of them. PAST MEDICAL HISTORY: Hypertension; type 2 diabetes; dyslipidemia; coronary artery disease; chronic atrial fibrillation, for which he is on chronic Coumadin anticoagulation; BPH; history of lower GI bleed in the past; obesity; cerebrovascular disease with previous CVA. PAST SURGICAL HISTORY: Left total knee replacement. He has had eye surgery with a left rectus muscle resection. He had a colonoscopy in 2007, which showed internal hemorrhoids and diverticulosis. 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 IMMUNIZATIONS: Influenza vaccine on 07/17/2016. Pneumovax (PPV 23) 01/22/2012. Pneumococcal vaccine (PCV 13) on 07/18/2015. Zoster on 07/18/2015. CURRENT MEDICATIONS: Reviewed.See MAR for complete list. 1. He is on Lantus and NovoLog insulin for his diabetes. 2. He is on chronic Coumadin anticoagulation, which is being managed by pharmacy. 3. He is on several antihypertensives as well as carvedilol. ALLERGIES: Codeine, to which he is intolerant, causes nausea and vomiting. Cortisone, which is listed as an allergy and states that he was short of breath with chest tightness. REVIEW OF SYSTEMS: Review of his clinical data during his acute stay showed that he was taking in adequate fluids. He was voiding, moving his bowels. He was tolerating his diet. Vital signs were stable. Blood pressure was controlled. Oxygen saturations were adequate on room air. He remained afebrile throughout the acute stay. Lab work during the acute stay showed that his INRs were quite often were below 2.0. I spoke with the pharmacist about this. The subtherapeutic INRs are probably somewhat paradoxical and have something to do with the IV antibiotics, as well as the IV Solu-Medrol. His white blood cell count at the time of admission michelle to 28,900, and on repeat on January 21, white count was 12.9. Hemoglobin and hematocrit are stable at 14 and 43. BUN and creatinine remain elevated and BUN michelle to 99 and creatinine remained stable at 2.3-2.5. 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 Blood sugars were monitored and ranged from the high 100s to the lower 200s. His last hemoglobin A1c in clinic shows that he is usually in the range of 6.6-7.0. His INRs have also been therapeutic as an outpatient. Mr. Mares denies any chest pain or shortness of breath, although he obviously becomes somewhat short of breath on exertion. Appetite is good. He denies any vision or hearing changes. No swallowing difficulties. No calf or leg pain. He understands that by going to swing bed, he will need to work with them on a daily basis so that certain goals can be achieved in order to help him return home. His IV antibiotics were stopped prior to admission to swing bed as he had completed a 7-day course of both ceftriaxone and azithromycin. We are also continuing to taper his IV Solu- Medrol prior to switching him to oral steroids. There have been no falls while in acute care. He is tolerating his diet and moving his bowels. CURRENT MEDICATIONS: Reviewed. He will continue on the current medications. Please see the MAR for complete list. We have tapered his steroids down to 20 mg twice a day, and over the weekend, the hospitalist will continue and transition him to oral prednisone. PHYSICAL EXAMINATION: General: He is seated in his recliner. He voices no new concerns or complaints. Vital Signs: Blood pressure 121/76 on the left, 130/72 on the right. Pulse 92 and irregular, respiratory rate 20, oxygen saturation has improved to 93% on room air. He remains afebrile. Weight is 255 pounds 9.6 ounces. Height 5 feet 4 inches. HEENT: Unremarkable. ENT was clear. Neck: No JVDs or bruits. No adenopathy. Chest: Showed clear, but diminished bilateral breath sounds without wheezing. Heart: Showed an irregular rate and rhythm. Abdomen: Obese, soft, and benign. Extremities: Showed the calves to be soft and nontender. There was some chronic lower extremity edema. Neurologic: General weakness with residual weakness from previous stroke. ASSESSMENT AND PLAN: We will continue the present management. Lab work was ordered for the weekend including daily INRs. A BMP has been ordered for Thursday, 01/25. We will continue to monitor his blood sugars. CONDITION AT THE TIME OF ADMISSION TO SWING BED: Hemodynamically and neurologically stable. CODE STATUS: Mr. Mares remains a full code at this time. [facility] /[id number] MTDSrikanth
[2017-01-26] MEDS: Budesonide 0.5 MG/2 ML Neb Susp NEB SCH ×3 (07:34→17:23)
[2017-01-26] MEDS: Albuterol/Ipratropium 3.0-0.5 MG/3 ML Neb Soln NEB SCH ×3 (07:34→23:09)
[2017-01-26] MEDS: Thiamine 100 MG Tab PO SCH (08:27)
[2017-01-26] MEDS: Fenofibrate Nanocrystallized 145 MG Tab PO SCH (08:28)
[2017-01-26] MEDS: Carvedilol 6.25 MG Tab PO SCH ×2 (08:28→20:41)
[2017-01-26] MEDS: Aspirin 81 MG Tab.EC PO SCH (08:28)
[2017-01-26] MEDS: Sodium Bicarbonate 650 MG Tab PO SCH (08:29)
[2017-01-26] MEDS: Allopurinol 100 MG Tab PO SCH (08:29)
[2017-01-26] MEDS: amLODIPine 5 MG Tab PO SCH (08:29)
[2017-01-26] MEDS: Pantoprazole 40 MG Tab.CR PO SCH (08:30)
[2017-01-26] MEDS: Insulin Aspart 100 Units/ML 3 ML Pen SUBCUT SCH ×7 (08:30→20:43)
[2017-01-26] MEDS: Furosemide 40 MG Tab PO SCH (08:30)
[2017-01-26] MEDS: predniSONE 10 MG Tab PO SCH (08:40)
[2017-01-26] MEDS: Tamsulosin 0.4 MG Cap.ER PO SCH (12:24)
[2017-01-26] MEDS ORDERED: Warfarin 2 MG Tab PO ONE (14:00)
[2017-01-26] MEDS: guaiFENesin 100 MG/5 ML Soln 5 ML UD Cup PO PRN (17:05)
[2017-01-26] MEDS: Simvastatin 10 MG Tab PO SCH (20:41)
[2017-01-26] MEDS: Benzonatate 100 MG Cap PO PRN (23:21)
[2017-01-27] MEDS: hydrALAZINE 25 MG Tab PO SCH ×3 (04:50→21:19)
[2017-01-27] MEDS: Levothyroxine 150 MCG Tab PO SCH (05:57)
[2017-01-27] MEDS: Acetaminophen 325 MG Tab PO PRN (06:28)
[2017-01-27] MEDS: Albuterol/Ipratropium 3.0-0.5 MG/3 ML Neb Soln NEB SCH ×3 (07:27→23:20)
[2017-01-27] MEDS: Budesonide 0.5 MG/2 ML Neb Susp NEB SCH ×2 (07:27→17:49)
[2017-01-27] MEDS: Insulin Aspart 100 Units/ML 3 ML Pen SUBCUT SCH ×7 (08:53→23:09)
[2017-01-27] MEDS: Tamsulosin 0.4 MG Cap.ER PO SCH (08:56)
[2017-01-27] MEDS: Fenofibrate Nanocrystallized 145 MG Tab PO SCH (08:56)
[2017-01-27] MEDS: Allopurinol 100 MG Tab PO SCH (08:57)
[2017-01-27] MEDS: Carvedilol 6.25 MG Tab PO SCH ×2 (08:57→21:19)
[2017-01-27] MEDS: Pantoprazole 40 MG Tab.CR PO SCH (08:57)
[2017-01-27] MEDS: predniSONE 10 MG Tab PO SCH (08:57)
[2017-01-27] MEDS: Thiamine 100 MG Tab PO SCH (08:58)
[2017-01-27] MEDS: amLODIPine 5 MG Tab PO SCH (08:58)
[2017-01-27] MEDS: Sodium Bicarbonate 650 MG Tab PO SCH (08:59)
[2017-01-27] MEDS: Aspirin 81 MG Tab.EC PO SCH (08:59)
[2017-01-27] MEDS: Benzonatate 100 MG Cap PO PRN ×2 (12:59→21:18)
[2017-01-27] MEDS ORDERED: Warfarin 2 MG Tab PO ONE (14:00)
[2017-01-27] MEDS: Benzocaine/Cetylpyridinium/Menthol Lozenge MUCMEM PRN (15:52)
[2017-01-27] MEDS: Simvastatin 10 MG Tab PO SCH (21:20)
[2017-01-28] MEDS: hydrALAZINE 25 MG Tab PO SCH ×3 (05:39→22:21)
[2017-01-28] MEDS: Levothyroxine 150 MCG Tab PO SCH (05:39)
[2017-01-28] MEDS: Acetaminophen 325 MG Tab PO PRN ×2 (06:44→18:02)
[2017-01-28] MEDS: Budesonide 0.5 MG/2 ML Neb Susp NEB SCH ×2 (07:33→18:01)
[2017-01-28] MEDS: Albuterol/Ipratropium 3.0-0.5 MG/3 ML Neb Soln NEB SCH ×3 (07:33→22:23)
[2017-01-28] MEDS: Benzocaine/Cetylpyridinium/Menthol Lozenge MUCMEM PRN (07:39)
[2017-01-28] MEDS: guaiFENesin 100 MG/5 ML Soln 5 ML UD Cup PO PRN ×2 (07:39→18:01)
[2017-01-28] MEDS: Benzonatate 100 MG Cap PO PRN ×2 (07:40→18:01)
[2017-01-28] MEDS: Furosemide 40 MG Tab PO SCH (07:41)
[2017-01-28] MEDS: Insulin Aspart 100 Units/ML 3 ML Pen SUBCUT SCH ×7 (08:23→22:08)
[2017-01-28] MEDS: predniSONE 10 MG Tab PO SCH (08:27)
[2017-01-28] MEDS: Sodium Bicarbonate 650 MG Tab PO SCH (08:28)
[2017-01-28] MEDS: Aspirin 81 MG Tab.EC PO SCH (08:28)
[2017-01-28] MEDS: Thiamine 100 MG Tab PO SCH (08:28)
[2017-01-28] MEDS: Carvedilol 6.25 MG Tab PO SCH ×2 (08:29→22:22)
[2017-01-28] MEDS: Pantoprazole 40 MG Tab.CR PO SCH (08:29)
[2017-01-28] MEDS: Allopurinol 100 MG Tab PO SCH (08:30)
[2017-01-28] MEDS: Tamsulosin 0.4 MG Cap.ER PO SCH (08:30)
[2017-01-28] MEDS: Fenofibrate Nanocrystallized 145 MG Tab PO SCH (08:30)
[2017-01-28] MEDS: amLODIPine 5 MG Tab PO SCH (08:31)
[2017-01-28] MEDS: Nystatin Susp 100,000 Unit/ML 5 ML UD Cup PO SCH ×4 (12:57→22:21)
[2017-01-28] MEDS ORDERED: Warfarin 2 MG Tab PO ONE (14:00)
--- NOTE | 2017-01-28 16:15 | PCM.PN ---
- General Info Date of Service: 01/28/17 Subjective Update: Patient had a near syncope this afternoon when he was lifted up from the commode. He was with nursing staff and inform them that he feels like he is going to pass out. Nursing staff guided him to the floor. VS, sugar and oxygen during the immediate period was noted to be stable. He denies any chest pain nor shortness of breath. - Patient Data Vitals - most recent: Last Vital Signs Temp 36.2 C 01/28/17 07:00 Pulse 68 01/28/17 15:00 Resp 20 01/28/17 07:00 BP 103/69 01/28/17 13:01 Pulse Ox 92 L 01/28/17 15:26 Weight - most recent: 115.938 kg I&O - last 24 hours: Intake & Output 01/28/17 01/28/17 01/28/17 06:59 14:59 22:59 Intake Total 400 Balance 400 Lab Results last 24 hrs: Laboratory Results - last 24 hr 01/27/17 01/27/17 01/28/17 Range/Units 17:01 20:50 06:13 WBC (5.0-10.0) 10^3/uL RBC (4.6-6.2) 10^6/uL Hgb (14.0-18.0) g/dL Hct (40.0-54.0) % MCV (80-100) fL MCH (27.0-34.0) pg MCHC (33.0-35.0) g/dL Plt Count (150-450) 10^3/uL PT 22.0 H (9.0-12.0) SEC INR 2.2 H (0.9-1.2) Sodium (135-145) mmol/L Potassium (3.6-5.0) mmol/L Chloride (101-111) mmol/L Carbon Dioxide (21.0-31.0) mmol/L Anion Gap BUN (7-18) mg/dL Creatinine (0.6-1.3) mg/dL Est Cr Clr Drug Dosing mL/min Estimated GFR (MDRD) BUN/Creatinine Ratio Glucose (74-105) mg/dL POC Glucose 172 H 118 H (83-110) mg/dl Calcium (8.4-10.2) mg/dl Total Bilirubin (0.2-1.0) mg/dL AST (10-42) IU/L ALT (10-60) IU/L Alkaline Phosphatase (42-121) IU/L B-Natriuretic Peptide (0-100) pg/ml Total Protein (6.7-8.2) g/dl Albumin (3.2-5.5) g/dl Globulin Albumin/Globulin Ratio 01/28/17 01/28/17 01/28/17 Range/Units 07:45 11:06 14:22 WBC (5.0-10.0) 10^3/uL RBC (4.6-6.2) 10^6/uL Hgb (14.0-18.0) g/dL Hct (40.0-54.0) % MCV (80-100) fL MCH (27.0-34.0) pg MCHC (33.0-35.0) g/dL Plt Count (150-450) 10^3/uL PT (9.0-12.0) SEC INR (0.9-1.2) Sodium (135-145) mmol/L Potassium (3.6-5.0) mmol/L Chloride (101-111) mmol/L Carbon Dioxide (21.0-31.0) mmol/L Anion Gap BUN (7-18) mg/dL Creatinine (0.6-1.3) mg/dL Est Cr Clr Drug Dosing mL/min Estimated GFR (MDRD) BUN/Creatinine Ratio Glucose (74-105) mg/dL POC Glucose 212 H 142 H 189 H (83-110) mg/dl Calcium (8.4-10.2) mg/dl Total Bilirubin (0.2-1.0) mg/dL AST (10-42) IU/L ALT (10-60) IU/L Alkaline Phosphatase (42-121) IU/L B-Natriuretic Peptide (0-100) pg/ml Total Protein (6.7-8.2) g/dl Albumin (3.2-5.5) g/dl Globulin Albumin/Globulin Ratio 01/28/17 01/28/17 01/28/17 Range/Units 14:37 14:37 14:37 WBC 19.9 H (5.0-10.0) 10^3/uL RBC 5.29 (4.6-6.2) 10^6/uL Hgb 14.7 (14.0-18.0) g/dL Hct 44.7 (40.0-54.0) % MCV 84.5 (80-100) fL MCH 27.8 (27.0-34.0) pg MCHC 32.9 L (33.0-35.0) g/dL Plt Count 198 (150-450) 10^3/uL PT (9.0-12.0) SEC INR (0.9-1.2) Sodium 134 L (135-145) mmol/L Potassium 5.0 (3.6-5.0) mmol/L Chloride 98 L (101-111) mmol/L Carbon Dioxide 27.0 (21.0-31.0) mmol/L Anion Gap 14.0 BUN 76 H (7-18) mg/dL Creatinine 2.1 H (0.6-1.3) mg/dL Est Cr Clr Drug Dosing 21.93 mL/min Estimated GFR (MDRD) 30 BUN/Creatinine Ratio 36.19 Glucose 160 H (74-105) mg/dL POC Glucose (83-110) mg/dl Calcium 8.7 (8.4-10.2) mg/dl Total Bilirubin 0.9 (0.2-1.0) mg/dL AST 23 (10-42) IU/L ALT 23 (10-60) IU/L Alkaline Phosphatase 37 L (42-121) IU/L B-Natriuretic Peptide 43 (0-100) pg/ml Total Protein 5.9 L (6.7-8.2) g/dl Albumin 3.1 L (3.2-5.5) g/dl Globulin 2.8 Albumin/Globulin Ratio 1.11 Yassine Results last 24 hrs: Microbiology 01/27/17 17:23 Quick Strep Confirmation Culture - Final Throat NO GROUP A STREP ISOLATED Group A Streptococcus Rapid Screen - Final NEGATIVE STREP A SCREEN Med Orders - Current: Current Medications Acetaminophen (Tylenol) 650 mg PO Q4H PRN PRN Reason: Pain/Fever Last Admin: 01/28/17 06:44 Dose: 650 mg Albuterol/Ipratropium (Duoneb 3.0-0.5 Mg/3 Ml) 3 ml NEB Q8HRRT ANDREY Last Admin: 01/28/17 15:26 Dose: 3 ml Allopurinol (Zyloprim) 100 mg PO DAILY [facility] Last Admin: 01/28/17 08:30 Dose: 100 mg Amlodipine Besylate (Norvasc) 2.5 mg PO DAILY [facility] Last Admin: 01/28/17 08:31 Dose: 2.5 mg Artificial Tears (Liquitears 1.4% Ophth Soln) 0 ml EYEBOTH Q6H PRN PRN Reason: Dry Eyes Aspirin (Halfprin) 81 mg PO DAILY [facility] Last Admin: 01/28/17 08:28 Dose: 81 mg Benzocaine/Menthol (Cepacol Sore Throat) 1 lozenge MUCMEM 6XDAY PRN PRN Reason: Sore Throat Last Admin: 01/28/17 07:39 Dose: 1 lozenge Benzonatate (Tessalon Perles) 100 mg PO QID PRN PRN Reason: Cough Last Admin: 01/28/17 07:40 Dose: 100 mg Budesonide (Pulmicort) 0.5 mg NEB BIDRT [facility] Last Admin: 01/28/17 07:33 Dose: 0.5 mg Carvedilol (Coreg) 6.25 mg PO BID [facility] Last Admin: 01/28/17 08:29 Dose: 6.25 mg Docusate Sodium (Colace) 100 mg PO BID PRN PRN Reason: Constipation Fenofibrate (Tricor) 145 mg PO DAILY [facility] Last Admin: 01/28/17 08:30 Dose: 145 mg Furosemide (Lasix) 40 mg PO Q48H [facility] Last Admin: 01/28/17 07:41 Dose: 40 mg Guaifenesin (Robitussin) 100 mg PO Q6H PRN PRN Reason: Cough Last Admin: 01/28/17 07:39 Dose: 100 mg Hydralazine HCl (Apresoline) 50 mg PO Q8H [facility] Last Admin: 01/28/17 13:01 Dose: 50 mg Insulin Aspart (Novolog) 30 unit SUBCUT TIDAC [facility] Last Admin: 01/28/17 12:57 Dose: 30 units Insulin Aspart (Novolog) 0 unit SUBCUT QID [facility] PRN Reason: Protocol Last Admin: 01/28/17 12:55 Dose: Not Given Levothyroxine Sodium (Levothyroxine) 150 mcg PO DAILY@0600 [facility] Last Admin: 01/28/17 05:39 Dose: 150 mcg Nystatin (Mycostatin) 5 ml PO QID [facility] Stop: 02/03/17 11:16 Last Admin: 01/28/17 12:59 Dose: 5 ml Pantoprazole Sodium (Protonix) 40 mg PO DAILY [facility] Last Admin: 01/28/17 08:29 Dose: 40 mg Prednisone (Prednisone) 20 mg PO DAILY [facility] PRN Reason: Taper Stop: 02/02/17 08:59 Last Admin: 01/28/17 08:27 Dose: 20 mg Simvastatin (Zocor) 20 mg PO BEDTIME [facility] Last Admin: 01/27/17 21:20 Dose: 20 mg Sodium Bicarbonate (Sodium Bicarbonate) 650 mg PO DAILY [facility] Last Admin: 01/28/17 08:28 Dose: 650 mg Sodium Chloride (Saline Flush) 10 ml FLUSH ASDIRECTED [facility] Last Admin: 01/24/17 19:40 Dose: 10 ml Tamsulosin HCl (Flomax) 0.4 mg PO DAILY [facility] Last Admin: 01/28/17 08:30 Dose: 0.4 mg Thiamine HCl (Vitamin B-1) 100 mg PO DAILY [facility] Last Admin: 01/28/17 08:28 Dose: 100 mg Warfarin Sodium (Pharmacy To Dose - Warfarin) 1 dose .XX ASDIRECTED [facility] Discontinued Medications Fenofibrate (Tricor) 145 mg PO DAILY [facility] Furosemide (Lasix) 40 mg PO DAILY [facility] Last Admin: 01/24/17 08:26 Dose: 40 mg Insulin Aspart (Novolog) 30 unit SUBCUT TID [facility] Methylprednisolone Sodium Succinate (Solu-Medrol) 20 mg IVPUSH Q12H [facility] Last Admin: 01/25/17 09:08 Dose: 20 mg Non-Formulary Medication (Simvastatin [Simvastatin]) 20 mg PO BEDTIME [facility] Non-Formulary Medication (Hydralazine [Apresoline]) 50 mg PO Q8H [facility] Last Admin: 01/23/17 20:31 Dose: Not Given Warfarin Sodium (Pharmacy To Dose - Warfarin) 1 dose .XX ASDIRECTED [facility] Warfarin Sodium (Coumadin) 2 mg PO ONETIME ONE Stop: 01/24/17 14:01 Last Admin: 01/24/17 14:36 Dose: 2 mg Warfarin Sodium (Coumadin) 2 mg PO ONETIME ONE Stop: 01/25/17 14:01 Last Admin: 01/25/17 13:23 Dose: 2 mg Warfarin Sodium (Coumadin) 2 mg PO ONETIME ONE Stop: 01/26/17 14:01 Last Admin: 01/26/17 13:33 Dose: 2 mg Warfarin Sodium (Coumadin) 2 mg PO ONETIME ONE Stop: 01/27/17 14:01 Last Admin: 01/27/17 13:43 Dose: 2 mg Warfarin Sodium (Coumadin) 2 mg PO ONETIME ONE Stop: 01/28/17 14:01 Last Admin: 01/28/17 13:00 Dose: 2 mg - Exam General: alert Lungs: Normal respiratory effort, Other (decreased breath sounds both bases) Cardiovascular: Regular Rate, Regular Rhythm Abdomen: bowel sounds present, soft, no tenderness - Problem List Review Problem List Initiated/Reviewed/Updated: Yes - My Orders Last 24 Hours: My Active Orders 01/28/17 11:15 Nystatin [Mycostatin] 5 ml PO QID 01/28/17 14:27 EKG 12 Lead [EKG Documentation Completion] [RC] ROUTINE 01/28/17 15:03 Chest 1V Frontal [CR] Routine 01/28/17 15:12 URINALYSIS W/MICROSCOPIC [UA W/MICROSCOPIC] [URIN] Routine 01/28/17 16:00 CBC WITH AUTO DIFF [HEME] Routine - Plan Plan:: For the episode of syncope, labs ordered showed leukocytosis, reactive versus a developing infection. Chest xray and urinalysis ordered. Rest of labs showed stable creatinine which has been his baseline, BNP normal, EKG showed atrial fibrillation which is chronic for him. He has been complaining of sore throat in the last two day and work up showed negative for strep. due to patches noted on the posterior pharynx, Nystatin swish and swallow was started. He will be continued on cepacol lozenges as well as guaifenessin for cough. he will continue with her physical therapy for strengthening.
--- NOTE | 2017-01-28 16:17 | CR ---
Clinical history: 86-year-old male near syncopal episode. Interpretation: AP portable chest confirms borderline cardiomegaly and chronic pleural parenchymal s carring left base since [address] exam[address] 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 No new signs of alveolar edema, dependent pleural fluid accumulation, lung mass or other focal lobar consolidation (infiltrate/atelectasis). CONCLUSION: No acute new cardiopulmonary abnormality. No pneumothorax.
[2017-01-28] MEDS: Simvastatin 10 MG Tab PO SCH (22:21)
[2017-01-29] MEDS: hydrALAZINE 25 MG Tab PO SCH ×3 (06:22→23:06)
[2017-01-29] MEDS: Levothyroxine 150 MCG Tab PO SCH (06:23)
[2017-01-29] MEDS: Acetaminophen 325 MG Tab PO PRN ×2 (06:24→17:36)
[2017-01-29] MEDS: Albuterol/Ipratropium 3.0-0.5 MG/3 ML Neb Soln NEB SCH ×3 (07:11→23:09)
[2017-01-29] MEDS: Budesonide 0.5 MG/2 ML Neb Susp NEB SCH ×3 (07:11→18:37)
[2017-01-29] MEDS: Aspirin 81 MG Tab.EC PO SCH (09:09)
[2017-01-29] MEDS: Carvedilol 6.25 MG Tab PO SCH ×2 (09:09→23:07)
[2017-01-29] MEDS: Tamsulosin 0.4 MG Cap.ER PO SCH (09:13)
[2017-01-29] MEDS: Nystatin Susp 100,000 Unit/ML 5 ML UD Cup PO SCH ×4 (09:13→23:08)
[2017-01-29] MEDS: Allopurinol 100 MG Tab PO SCH (09:13)
[2017-01-29] MEDS: amLODIPine 5 MG Tab PO SCH (09:13)
[2017-01-29] MEDS: Pantoprazole 40 MG Tab.CR PO SCH (09:13)
[2017-01-29] MEDS: Fenofibrate Nanocrystallized 145 MG Tab PO SCH (09:13)
[2017-01-29] MEDS: Sodium Bicarbonate 650 MG Tab PO SCH (09:14)
[2017-01-29] MEDS: Thiamine 100 MG Tab PO SCH (09:14)
[2017-01-29] MEDS: Insulin Aspart 100 Units/ML 3 ML Pen SUBCUT SCH ×7 (09:14→23:11)
[2017-01-29] MEDS: predniSONE 10 MG Tab PO SCH (10:21)
[2017-01-29] MEDS: Simvastatin 10 MG Tab PO SCH (23:09)
[2017-01-30] MEDS: hydrALAZINE 25 MG Tab PO SCH ×3 (04:41→22:13)
[2017-01-30] MEDS: Acetaminophen 325 MG Tab PO PRN ×4 (04:43→23:16)
[2017-01-30] MEDS: Levothyroxine 150 MCG Tab PO SCH (05:38)
[2017-01-30] MEDS: Albuterol/Ipratropium 3.0-0.5 MG/3 ML Neb Soln NEB SCH ×3 (07:03→23:10)
[2017-01-30] MEDS: Budesonide 0.5 MG/2 ML Neb Susp NEB SCH ×3 (07:03→17:00)
[2017-01-30] MEDS: Insulin Aspart 100 Units/ML 3 ML Pen SUBCUT SCH ×7 (09:55→23:13)
[2017-01-30] MEDS: Nystatin Susp 100,000 Unit/ML 5 ML UD Cup PO SCH ×4 (09:55→22:14)
[2017-01-30] MEDS: Furosemide 40 MG Tab PO SCH (09:55)
[2017-01-30] MEDS: Carvedilol 6.25 MG Tab PO SCH ×2 (09:57→22:13)
[2017-01-30] MEDS: amLODIPine 5 MG Tab PO SCH (09:57)
[2017-01-30] MEDS: Allopurinol 100 MG Tab PO SCH (09:58)
[2017-01-30] MEDS: Thiamine 100 MG Tab PO SCH (09:58)
[2017-01-30] MEDS: Sodium Bicarbonate 650 MG Tab PO SCH (09:59)
[2017-01-30] MEDS: Tamsulosin 0.4 MG Cap.ER PO SCH (09:59)
[2017-01-30] MEDS: Pantoprazole 40 MG Tab.CR PO SCH (09:59)
[2017-01-30] MEDS: Aspirin 81 MG Tab.EC PO SCH (09:59)
[2017-01-30] MEDS: Fenofibrate Nanocrystallized 145 MG Tab PO SCH (09:59)
[2017-01-30] MEDS: predniSONE 10 MG Tab PO SCH (09:59)
[2017-01-30] MEDS ORDERED: Benzocaine/Cetylpyridinium/Menthol Lozenge MUCMEM PRN (10:47)
[2017-01-30] MEDS: Benzocaine/Cetylpyridinium/Menthol Lozenge MUCMEM PRN ×2 (13:41→19:15)
[2017-01-30] MEDS: Simvastatin 10 MG Tab PO SCH (22:14)
[2017-01-31] MEDS: Acetaminophen 325 MG Tab PO PRN ×3 (03:23→21:44)
[2017-01-31] MEDS: Benzocaine/Cetylpyridinium/Menthol Lozenge MUCMEM PRN ×3 (04:05→22:52)
[2017-01-31] MEDS: Levothyroxine 150 MCG Tab PO SCH (05:20)
[2017-01-31] MEDS: hydrALAZINE 25 MG Tab PO SCH ×3 (05:21→21:32)
[2017-01-31] MEDS: Pantoprazole 40 MG Tab.CR PO SCH (08:34)
[2017-01-31] MEDS: amLODIPine 5 MG Tab PO SCH (08:35)
[2017-01-31] MEDS: Sodium Bicarbonate 650 MG Tab PO SCH (08:37)
[2017-01-31] MEDS: Thiamine 100 MG Tab PO SCH (08:37)
[2017-01-31] MEDS: Aspirin 81 MG Tab.EC PO SCH (08:37)
[2017-01-31] MEDS: Fenofibrate Nanocrystallized 145 MG Tab PO SCH (08:38)
[2017-01-31] MEDS: Allopurinol 100 MG Tab PO SCH (08:38)
[2017-01-31] MEDS: predniSONE 10 MG Tab PO SCH (08:38)
[2017-01-31] MEDS: Carvedilol 6.25 MG Tab PO SCH ×2 (08:40→21:32)
[2017-01-31] MEDS: Nystatin Susp 100,000 Unit/ML 5 ML UD Cup PO SCH ×4 (08:41→21:31)
[2017-01-31] MEDS: Tamsulosin 0.4 MG Cap.ER PO SCH (08:42)
[2017-01-31] MEDS: Insulin Aspart 100 Units/ML 3 ML Pen SUBCUT SCH ×7 (08:43→21:33)
[2017-01-31] MEDS: Budesonide 0.5 MG/2 ML Neb Susp NEB SCH ×2 (09:04→18:16)
[2017-01-31] MEDS: Albuterol/Ipratropium 3.0-0.5 MG/3 ML Neb Soln NEB SCH ×2 (09:04→18:06)
--- NOTE | 2017-01-31 10:32 | PCM.PN ---
- General Info Date of Service: 01/31/17 Subjective Update: the patient continues to complain of sore throat, it is worse with eating and swallowing. He also mentions that he has a toothache. He pointed to the left side of the lower jaw yesterday today he is complaining of a toothache on the right side. His is he was last seen by a dentist about 15 years ago. Remained afebrile very limited mobility needs a lift to get him out of bed Denies chest pain, shortness of breath - Review of Systems General: Reports: Weakness. Denies: Fever Pulmonary: Denies: shortness of breath Cardiovascular: Denies: Chest Pain Gastrointestinal: Denies: Abdominal pain Psychiatric: Denies: confusion - Patient Data Vitals - most recent: Last Vital Signs Temp 36.6 C 01/31/17 07:00 Pulse 77 01/31/17 08:40 Resp 20 01/31/17 07:00 BP 140/83 01/31/17 08:40 Pulse Ox 92 L 01/31/17 07:00 Weight - most recent: 115.938 kg I&O - last 24 hours: Intake & Output 01/30/17 01/31/17 01/31/17 22:59 06:59 14:59 Intake Total 500 150 240 Output Total 300 Balance 200 150 240 Lab Results last 24 hrs: Laboratory Results - last 24 hr 01/30/17 01/30/17 01/30/17 Range/Units 11:19 16:49 21:56 WBC (5.0-10.0) 10^3/uL RBC (4.6-6.2) 10^6/uL Hgb (14.0-18.0) g/dL Hct (40.0-54.0) % MCV (80-100) fL MCH (27.0-34.0) pg MCHC (33.0-35.0) g/dL Plt Count (150-450) 10^3/uL Neut % (Auto) (42.2-75.2) % Lymph % (Auto) (20.5-50.1) % [place] % (Auto) (2-8) % Eos % (Auto) (1.0-3.0) % Baso % (Auto) (0.0-1.0) % Sodium (135-145) mmol/L Potassium (3.6-5.0) mmol/L Chloride (101-111) mmol/L Carbon Dioxide (21.0-31.0) mmol/L Anion Gap BUN (7-18) mg/dL Creatinine (0.6-1.3) mg/dL Est Cr Clr Drug Dosing mL/min Estimated GFR (MDRD) Glucose (74-105) mg/dL POC Glucose 274 H 83 44 L* (83-110) mg/dl Calcium (8.4-10.2) mg/dl 01/30/17 01/30/17 01/31/17 Range/Units 22:25 23:09 06:15 WBC 17.8 H (5.0-10.0) 10^3/uL RBC 4.85 (4.6-6.2) 10^6/uL Hgb 13.5 L (14.0-18.0) g/dL Hct 40.9 (40.0-54.0) % MCV 84.3 (80-100) fL MCH 27.8 (27.0-34.0) pg MCHC 33.0 (33.0-35.0) g/dL Plt Count 173 (150-450) 10^3/uL Neut % (Auto) 81.1 H (42.2-75.2) % Lymph % (Auto) 7.0 L (20.5-50.1) % [place] % (Auto) 10.8 H (2-8) % Eos % (Auto) 0.9 L (1.0-3.0) % Baso % (Auto) 0.2 (0.0-1.0) % Sodium (135-145) mmol/L Potassium (3.6-5.0) mmol/L Chloride (101-111) mmol/L Carbon Dioxide (21.0-31.0) mmol/L Anion Gap BUN (7-18) mg/dL Creatinine (0.6-1.3) mg/dL Est Cr Clr Drug Dosing mL/min Estimated GFR (MDRD) Glucose (74-105) mg/dL POC Glucose 78 L 107 (83-110) mg/dl Calcium (8.4-10.2) mg/dl 01/31/17 01/31/17 Range/Units 06:15 07:40 WBC (5.0-10.0) 10^3/uL RBC (4.6-6.2) 10^6/uL Hgb (14.0-18.0) g/dL Hct (40.0-54.0) % MCV (80-100) fL MCH (27.0-34.0) pg MCHC (33.0-35.0) g/dL Plt Count (150-450) 10^3/uL Neut % (Auto) (42.2-75.2) % Lymph % (Auto) (20.5-50.1) % [place] % (Auto) (2-8) % Eos % (Auto) (1.0-3.0) % Baso % (Auto) (0.0-1.0) % Sodium 130 L (135-145) mmol/L Potassium 4.4 (3.6-5.0) mmol/L Chloride 97 L (101-111) mmol/L Carbon Dioxide 26.0 (21.0-31.0) mmol/L Anion Gap 11.4 BUN 66 H (7-18) mg/dL Creatinine 2.3 H (0.6-1.3) mg/dL Est Cr Clr Drug Dosing 20.02 mL/min Estimated GFR (MDRD) 27 Glucose 171 H (74-105) mg/dL POC Glucose 179 H (83-110) mg/dl Calcium 8.0 L (8.4-10.2) mg/dl Yassine Results last 24 hrs: Microbiology 01/28/17 18:42 Aerobic Blood Culture - Preliminary Blood - Venous - Lab Draw NO GROWTH AFTER 2 DAYS Anaerobic Blood Culture - Preliminary NO GROWTH AFTER 2 DAYS 01/28/17 18:38 Aerobic Blood Culture - Preliminary Blood - Venous NO GROWTH AFTER 2 DAYS Anaerobic Blood Culture - Final Med Orders - Current: Current Medications Acetaminophen (Tylenol) 650 mg PO Q4H PRN PRN Reason: Pain/Fever Last Admin: 01/31/17 03:23 Dose: 650 mg Albuterol/Ipratropium (Duoneb 3.0-0.5 Mg/3 Ml) 3 ml NEB Q8HRRT [facility] Last Admin: 01/31/17 09:04 Dose: Not Given Allopurinol (Zyloprim) 100 mg PO DAILY [facility] Last Admin: 01/31/17 08:38 Dose: 100 mg Amlodipine Besylate (Norvasc) 2.5 mg PO DAILY [facility] Last Admin: 01/31/17 08:35 Dose: 2.5 mg Artificial Tears (Liquitears 1.4% Ophth Soln) 0 ml EYEBOTH Q6H PRN PRN Reason: Dry Eyes Aspirin (Halfprin) 81 mg PO DAILY [facility] Last Admin: 01/31/17 08:37 Dose: 81 mg Benzocaine/Menthol (Cepacol Sore Throat) 1 lozenge MUCMEM 6XDAY PRN PRN Reason: Sore Throat Last Admin: 01/31/17 04:05 Dose: 1 lozenge Benzocaine/Menthol (Cepacol Sore Throat) 1 lozenge MUCMEM Q6HR PRN PRN Reason: Sore Throat Benzonatate (Tessalon Perles) 100 mg PO QID PRN PRN Reason: Cough Last Admin: 01/28/17 18:01 Dose: 100 mg Budesonide (Pulmicort) 0.5 mg NEB BIDRT [facility] Last Admin: 01/31/17 09:04 Dose: Not Given Carvedilol (Coreg) 6.25 mg PO BID [facility] Last Admin: 01/31/17 08:40 Dose: 6.25 mg Docusate Sodium (Colace) 100 mg PO BID PRN PRN Reason: Constipation Fenofibrate (Tricor) 145 mg PO DAILY [facility] Last Admin: 01/31/17 08:38 Dose: 145 mg Furosemide (Lasix) 40 mg PO Q48H [facility] Last Admin: 01/30/17 09:55 Dose: 40 mg Guaifenesin (Robitussin) 100 mg PO Q6H PRN PRN Reason: Cough Last Admin: 01/28/17 18:01 Dose: 100 mg Hydralazine HCl (Apresoline) 50 mg PO Q8H [facility] Last Admin: 01/31/17 05:21 Dose: Not Given Insulin Aspart (Novolog) 30 unit SUBCUT TIDAC [facility] Last Admin: 01/31/17 08:43 Dose: 30 units Insulin Aspart (Novolog) 0 unit SUBCUT QID [facility] PRN Reason: Protocol Last Admin: 01/31/17 08:44 Dose: 1 units Levothyroxine Sodium (Levothyroxine) 150 mcg PO DAILY@0600 [facility] Last Admin: 01/31/17 05:20 Dose: 150 mcg Nystatin (Mycostatin) 5 ml PO QID [facility] Stop: 02/03/17 11:16 Last Admin: 01/31/17 08:41 Dose: 5 ml Pantoprazole Sodium (Protonix) 40 mg PO DAILY [facility] Last Admin: 01/31/17 08:34 Dose: 40 mg Prednisone (Prednisone) 5 mg PO DAILY [facility] PRN Reason: Taper Stop: 02/02/17 08:53 Last Admin: 01/31/17 08:38 Dose: 5 mg Simvastatin (Zocor) 20 mg PO BEDTIME [facility] Last Admin: 01/30/17 22:14 Dose: 20 mg Sodium Bicarbonate (Sodium Bicarbonate) 650 mg PO DAILY [facility] Last Admin: 01/31/17 08:37 Dose: 650 mg Sodium Chloride (Saline Flush) 10 ml FLUSH ASDIRECTED [facility] Last Admin: 01/24/17 19:40 Dose: 10 ml Tamsulosin HCl (Flomax) 0.4 mg PO DAILY [facility] Last Admin: 01/31/17 08:42 Dose: 0.4 mg Thiamine HCl (Vitamin B-1) 100 mg PO DAILY [facility] Last Admin: 01/31/17 08:37 Dose: 100 mg Warfarin Sodium (Pharmacy To Dose - Warfarin) 1 dose .XX ASDIRECTED [facility] Warfarin Sodium (Coumadin) 3 mg PO DAILY@1400 [facility] Stop: 02/01/17 14:01 Last Admin: 01/30/17 13:41 Dose: 3 mg Discontinued Medications Fenofibrate (Tricor) 145 mg PO DAILY [facility] Furosemide (Lasix) 40 mg PO DAILY [facility] Last Admin: 01/24/17 08:26 Dose: 40 mg Insulin Aspart (Novolog) 30 unit SUBCUT TID [facility] Methylprednisolone Sodium Succinate (Solu-Medrol) 20 mg IVPUSH Q12H [facility] Last Admin: 01/25/17 09:08 Dose: 20 mg Non-Formulary Medication (Simvastatin [Simvastatin]) 20 mg PO BEDTIME [facility] Non-Formulary Medication (Hydralazine [Apresoline]) 50 mg PO Q8H [facility] Last Admin: 01/23/17 20:31 Dose: Not Given Prednisone (Prednisone) 20 mg PO DAILY [facility] PRN Reason: Taper Stop: 02/02/17 08:59 Last Admin: 01/28/17 08:27 Dose: 20 mg Warfarin Sodium (Pharmacy To Dose - Warfarin) 1 dose .XX ASDIRECTED [facility] Warfarin Sodium (Coumadin) 2 mg PO ONETIME ONE Stop: 01/24/17 14:01 Last Admin: 01/24/17 14:36 Dose: 2 mg Warfarin Sodium (Coumadin) 2 mg PO ONETIME ONE Stop: 01/25/17 14:01 Last Admin: 01/25/17 13:23 Dose: 2 mg Warfarin Sodium (Coumadin) 2 mg PO ONETIME ONE Stop: 01/26/17 14:01 Last Admin: 01/26/17 13:33 Dose: 2 mg Warfarin Sodium (Coumadin) 2 mg PO ONETIME ONE Stop: 01/27/17 14:01 Last Admin: 01/27/17 13:43 Dose: 2 mg Warfarin Sodium (Coumadin) 2 mg PO ONETIME ONE Stop: 01/28/17 14:01 Last Admin: 01/28/17 13:00 Dose: 2 mg Warfarin Sodium (Coumadin) 3 mg PO ONETIME ONE Stop: 01/29/17 14:01 Last Admin: 01/29/17 13:01 Dose: 3 mg - Exam Quality Assessment: No: supplemental oxygen General: alert, oriented HEENT: Other (Morbidly obese, thick neck and tongue, very difficult to visualize that the retropharynx, no apparent plaques on the cheeks) Neck: supple Lungs: Clear to auscultation, Normal respiratory effort Cardiovascular: Irregular Rhythm Abdomen: bowel sounds present, soft, no tenderness, no distension Extremities: no edema Skin: warm, dry, intact Neurological: no new focal deficit Psy/Mental Status: alert, normal affect, normal mood - Problem List & Annotations (1) Weakness generalized SNOMED Code(s): 48997705 Code(s): R53.1 - WEAKNESS Status: Acute Current Visit: No (2) Diabetes type 2, controlled SNOMED Code(s): 71920382 Code(s): E11.9 - TYPE 2 DIABETES MELLITUS WITHOUT COMPLICATIONS Status: Chronic Priority: Medium Current Visit: No Qualifiers: Diabetes mellitus complication status: without complication Diabetes mellitus senior living insulin use: with senior living use Qualified Code(s): E11.9 - Type 2 diabetes mellitus without complications; Z79.4 - snf (current) use of insulin - Problem List Review Problem List Initiated/Reviewed/Updated: Yes - My Orders Last 24 Hours: My Active Orders 01/30/17 10:47 Benzocaine/Cetylpyrd/Menthol [Cepacol Sore Throat] 1 lozenge MUCMEM Q6HR PRN 01/30/17 14:00 Warfarin [Coumadin] 3 mg PO DAILY@1400 02/02/17 06:00 INR,PT,PROTHROMBIN TIME [COAG] Routine - Plan Plan:: Complaining of sore throat The patient is short neck, thick tongue difficult to get a good visualization of the pharynx No apparent ulcers or plaques For now continue nystatin and Cephacol prn Acute COPD exacerbation Has improved Continue Pulmicort Decrease the frequency of scheduled DuoNeb twice a day Taper steroids Leukocytosis No apparent ongoing infection He is off antibiotics Blood culture obtained on 28 January negative Strep throat culture is negative from january Urine analysis looked good on 28 January Likely due to steroids - will be tapered Hypertension Treat with Norvasc, hydralazine, Hyponatremia with chronic kidney disease stage III Likely due to diuretics, will follow Continue sodium bicarbonate Diabetes uncontrolled On Insulin Aspart 30 units 3 times a day Will be tapering steroids Deconditioning Working with PT OT, very limited mobility Chronic atrial fibrillation Rate controlled with Coreg On anticoagulation for stroke prevention DVT prophylaxis with low-dose anticoagulation with Coumadin
[2017-01-31] MEDS: Simvastatin 10 MG Tab PO SCH (21:32)
[2017-02-01] MEDS ORDERED: 25% Dextrose in Water 10 ML Syringe IVPUSH PRN
[2017-02-01] MEDS: hydrALAZINE 25 MG Tab PO SCH ×3 (05:16→22:04)
[2017-02-01] MEDS: Levothyroxine 150 MCG Tab PO SCH (05:17)
[2017-02-01] MEDS: Acetaminophen 325 MG Tab PO PRN ×3 (05:17→17:38)
[2017-02-01] MEDS: Albuterol/Ipratropium 3.0-0.5 MG/3 ML Neb Soln NEB SCH ×2 (06:07→18:03)
[2017-02-01] MEDS: Budesonide 0.5 MG/2 ML Neb Susp NEB SCH ×2 (06:19→18:05)
[2017-02-01] MEDS: Fenofibrate Nanocrystallized 145 MG Tab PO SCH (08:25)
[2017-02-01] MEDS: Sodium Bicarbonate 650 MG Tab PO SCH (08:26)
[2017-02-01] MEDS: Furosemide 40 MG Tab PO SCH (08:26)
[2017-02-01] MEDS: Pantoprazole 40 MG Tab.CR PO SCH (08:26)
[2017-02-01] MEDS: Nystatin Susp 100,000 Unit/ML 5 ML UD Cup PO SCH ×4 (08:27→22:04)
[2017-02-01] MEDS: Tamsulosin 0.4 MG Cap.ER PO SCH (08:27)
[2017-02-01] MEDS: Thiamine 100 MG Tab PO SCH (08:27)
[2017-02-01] MEDS: Aspirin 81 MG Tab.EC PO SCH (08:27)
[2017-02-01] MEDS: Insulin Aspart 100 Units/ML 3 ML Pen SUBCUT SCH ×7 (08:28→21:56)
[2017-02-01] MEDS: Allopurinol 100 MG Tab PO SCH (08:29)
[2017-02-01] MEDS: amLODIPine 5 MG Tab PO SCH (08:30)
[2017-02-01] MEDS: Carvedilol 6.25 MG Tab PO SCH ×2 (08:33→22:05)
[2017-02-01] MEDS: predniSONE 10 MG Tab PO SCH (08:33)
[2017-02-01] MEDS: Simvastatin 10 MG Tab PO SCH (22:03)
[2017-02-02] MEDS: hydrALAZINE 25 MG Tab PO SCH ×3 (05:49→22:32)
[2017-02-02] MEDS: Levothyroxine 150 MCG Tab PO SCH (05:49)
[2017-02-02] MEDS: Acetaminophen 325 MG Tab PO PRN ×2 (05:49→18:08)
[2017-02-02] MEDS: Budesonide 0.5 MG/2 ML Neb Susp NEB SCH ×2 (07:41→18:02)
[2017-02-02] MEDS: Albuterol/Ipratropium 3.0-0.5 MG/3 ML Neb Soln NEB SCH ×2 (07:41→18:02)
[2017-02-02] MEDS: Sodium Bicarbonate 650 MG Tab PO SCH (09:03)
[2017-02-02] MEDS: Carvedilol 6.25 MG Tab PO SCH ×2 (09:04→22:31)
[2017-02-02] MEDS: Tamsulosin 0.4 MG Cap.ER PO SCH (09:04)
[2017-02-02] MEDS: Allopurinol 100 MG Tab PO SCH (09:05)
[2017-02-02] MEDS: amLODIPine 5 MG Tab PO SCH (09:05)
[2017-02-02] MEDS: Insulin Aspart 100 Units/ML 3 ML Pen SUBCUT SCH ×7 (09:08→22:29)
[2017-02-02] MEDS: Thiamine 100 MG Tab PO SCH (09:08)
[2017-02-02] MEDS: Aspirin 81 MG Tab.EC PO SCH (09:08)
[2017-02-02] MEDS: Pantoprazole 40 MG Tab.CR PO SCH (09:08)
[2017-02-02] MEDS: Fenofibrate Nanocrystallized 145 MG Tab PO SCH (09:08)
[2017-02-02] MEDS: Nystatin Susp 100,000 Unit/ML 5 ML UD Cup PO SCH ×4 (09:09→22:33)
[2017-02-02] MEDS: Warfarin 2 MG Tab PO SCH (13:17)
[2017-02-02] MEDS: Benzocaine/Cetylpyridinium/Menthol Lozenge MUCMEM PRN (16:23)
[2017-02-02] MEDS: Simvastatin 10 MG Tab PO SCH (22:32)
[2017-02-03] MEDS: Levothyroxine 150 MCG Tab PO SCH (06:39)
[2017-02-03] MEDS: hydrALAZINE 25 MG Tab PO SCH ×3 (06:40→21:00)
[2017-02-03] MEDS: Albuterol/Ipratropium 3.0-0.5 MG/3 ML Neb Soln NEB SCH ×3 (07:30→18:32)
[2017-02-03] MEDS: Budesonide 0.5 MG/2 ML Neb Susp NEB SCH ×2 (07:30→18:32)
[2017-02-03] MEDS: Furosemide 40 MG Tab PO SCH (08:03)
[2017-02-03] MEDS: Insulin Aspart 100 Units/ML 3 ML Pen SUBCUT SCH ×7 (08:06→20:59)
[2017-02-03] MEDS: Carvedilol 6.25 MG Tab PO SCH ×2 (08:13→20:55)
[2017-02-03] MEDS: Thiamine 100 MG Tab PO SCH (08:14)
[2017-02-03] MEDS: Fenofibrate Nanocrystallized 145 MG Tab PO SCH (08:14)
[2017-02-03] MEDS: Aspirin 81 MG Tab.EC PO SCH (08:14)
[2017-02-03] MEDS: Tamsulosin 0.4 MG Cap.ER PO SCH (08:14)
[2017-02-03] MEDS: Pantoprazole 40 MG Tab.CR PO SCH (08:15)
[2017-02-03] MEDS: Allopurinol 100 MG Tab PO SCH (08:15)
[2017-02-03] MEDS: amLODIPine 5 MG Tab PO SCH (08:15)
[2017-02-03] MEDS: Acetaminophen 325 MG Tab PO PRN ×2 (08:16→18:33)
[2017-02-03] MEDS: Nystatin Susp 100,000 Unit/ML 5 ML UD Cup PO SCH (08:17)
[2017-02-03] MEDS: Sodium Bicarbonate 650 MG Tab PO SCH (08:20)
[2017-02-03] MEDS: Simvastatin 10 MG Tab PO SCH (20:55)
[2017-02-04] MEDS: Levothyroxine 150 MCG Tab PO SCH (05:33)
[2017-02-04] MEDS: hydrALAZINE 25 MG Tab PO SCH ×2 (05:34→12:32)
[2017-02-04] MEDS: Albuterol/Ipratropium 3.0-0.5 MG/3 ML Neb Soln NEB SCH (07:23)
[2017-02-04] MEDS: Budesonide 0.5 MG/2 ML Neb Susp NEB SCH (07:23)
[2017-02-04] MEDS: Insulin Aspart 100 Units/ML 3 ML Pen SUBCUT SCH ×4 (08:29→12:20)
[2017-02-04] MEDS: Carvedilol 6.25 MG Tab PO SCH (08:44)
[2017-02-04] MEDS: Aspirin 81 MG Tab.EC PO SCH (08:45)
[2017-02-04] MEDS: Tamsulosin 0.4 MG Cap.ER PO SCH (08:45)
[2017-02-04] MEDS: amLODIPine 5 MG Tab PO SCH (08:46)
[2017-02-04] MEDS: Allopurinol 100 MG Tab PO SCH (08:47)
[2017-02-04] MEDS: Thiamine 100 MG Tab PO SCH (08:47)
[2017-02-04] MEDS: Fenofibrate Nanocrystallized 145 MG Tab PO SCH (08:47)
[2017-02-04] MEDS: Pantoprazole 40 MG Tab.CR PO SCH (08:47)
[2017-02-04] MEDS: Sodium Bicarbonate 650 MG Tab PO SCH (08:47)
--- NOTE | 2017-02-04 11:46 | PCM.DCSUM1 ---
Discharge Summary - Hospital Course Free Text/Narrative:: 86-year-old male with past medical history of hypertension, hyperlipidemia, type 2 diabetes mellitus, coronary artery disease, cerebrovascular accident, benign prostatic hypertrophy, atrial fibrillation on chronic Coumadin, GERD, hypothyroidism presented to the emergency room complaining of increasing weakness, tiredness, having cough for 2-3 days prior to admission. Single view of the chest x-ray on admission did not completely rule in or out the possibility of infiltrate versus mild cardiac decompensation. Lab work on admission showed WBC 20,000 with left shift, d-dimer 473, troponin negative, and BNP 50, creatinine 2.7, BUN 38, GFR 23. he was started on Rocephin IV and azithromycin for possible pneumonia and IV steroids for possible COPD exacerbation. His home medications were continued. after improving he was admitted to swing bed for more strengthening him and increase his mobility before going home. He declined to go to long term or any type of placement outside the home. however he agreed to have home health agency come to the house. He would continue physical therapy there. Today patient felt good enough to go home and he wants to be discharged. He had no acute events during has his swing bed stay. He denies any complaint for the last 24 hours and has no concern to address. he would be sent home to continue his home medications and start douneb and budesonide nebulizers. discharge diagnoses: -Acute COPD exacerbation -Leukocytosis, improved -Hypertension Treat with Norvasc, hydralazine, -Hyponatremia with chronic kidney disease stage III -Diabetes -Deconditioning Working with PT OT, very limited mobility -Chronic atrial fibrillation Rate controlled with Coreg On anticoagulation for stroke prevention 33 minutes were spent discharging the patient - Discharge Data Discharge Date: 02/04/17 Discharge Disposition: Home, W Home Health Agency 06 Condition: Good - Discharge Diagnosis/Problem(s) (1) GI bleed SNOMED Code(s): 43004446 ICD Code: K92.2 - GASTROINTESTINAL HEMORRHAGE, UNSPECIFIED Status: Acute Current Visit: No (2) Pneumonia SNOMED Code(s): 362290218 ICD Code: J18.9 - PNEUMONIA, UNSPECIFIED ORGANISM Status: Acute Current Visit: No Qualifiers: Pneumonia type: due to unspecified organism Laterality: bilateral Lung location: lower lobe of lung Qualified Code(s): J18.9 - Pneumonia, unspecified organism (3) Weakness generalized SNOMED Code(s): 40357731 ICD Code: R53.1 - WEAKNESS Status: Acute Current Visit: No (4) Diabetes type 2, controlled SNOMED Code(s): 74157188 ICD Code: E11.9 - TYPE 2 DIABETES MELLITUS WITHOUT COMPLICATIONS Status: Chronic Priority: Medium Current Visit: No Qualifiers: Diabetes mellitus complication status: without complication 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 Qualified Code(s): E11.9 - Type 2 diabetes mellitus without complications; Z79.4 - alf (current) use of insulin - Patient Summary/Data Consults: Consultations 01/26/17 09:20 OT Evaluation and Treatment [CONS] Routine PT Evaluation and Treatment [CONS] Routine - Patient Instructions Diet: Heart Healthy Diet, Diabetic Diet Activity: As Tolerated Showering/Bathing: January Shower Notify Provider of: Fever - Discharge Plan Prescriptions/Med Rec: Albuterol/Ipratropium [DuoNeb 3.0-0.5 MG/3 ML] 3 ml NEB Q4H PRN 30 Days PRN Reason: shortness of breath, wheezing Budesonide [Pulmicort] 0.5 mg NEB BIDRT 30 Days Furosemide [Lasix] 40 mg PO Q48H 30 Days hydrALAZINE [Apresoline] 50 mg PO Q8H 30 Days Home Medications: Home Meds Carvedilol 6.25 mg PO BID 02/19/15 [History] Fenofibrate 160 mg PO DAILY 02/19/15 [History] Insulin Aspart [NovoLOG] 25 units SUBCUT TID 02/19/15 [History] Insulin Glarg,Human.Rec.Analog [Lantus Solostar] 58 unit SUBCUT DAILY 02/19/15 [ History] Pantoprazole [ProTONIX] 40 mg PO DAILY 02/19/15 [History] Simvastatin 20 mg PO BEDTIME 02/19/15 [History] Sodium Bicarbonate 650 mg PO DAILY 02/19/15 [History] Tamsulosin HCl 0.4 mg PO DAILY 02/19/15 [History] Thiamine Mononitrate [Vitamin B-1] 100 mg PO DAILY 02/19/15 [History] amLODIPine Besylate [Amlodipine Besylate] 2.5 mg PO DAILY 02/19/15 [History] hydrALAZINE [Apresoline] 50 mg PO Q8H 02/19/15 [History] Allopurinol [Zyloprim] 100 mg PO DAILY 01/15/17 [History] Aspirin [Adult Low Dose Aspirin EC] 81 mg PO DAILY 01/15/17 [History] Levothyroxine 150 mcg PO DAILY 01/15/17 [History] Warfarin [Coumadin] 1.25 mg PO DAILY 01/15/17 [History] Albuterol/Ipratropium [DuoNeb 3.0-0.5 MG/3 ML] 3 ml NEB Q4H PRN 30 Days [Rx] Budesonide [Pulmicort] 0.5 mg NEB BIDRT 30 Days 02/04/17 [Rx] Furosemide [Lasix] 40 mg PO Q48H 30 Days 02/04/17 [Rx] hydrALAZINE [Apresoline] 50 mg PO Q8H 30 Days 02/04/17 [Rx] Patient Handouts: Chronic Obstructive Pulmonary Disease, [id number], Community-Acquired Pneumonia, Adult, [id number] Referrals: Diego Horne MD [Physician] - 02/10/17 - Discharge Summary/Plan Comment DC Time >30 min.: Yes (33 minutes were spent discharging patient) - Review of Systems General: Reports: No Symptoms HEENT: Reports: no symptoms Pulmonary: Reports: no symptoms Cardiovascular: Reports: No Symptoms Gastrointestinal: Reports: No symptoms Genitourinary: Reports: no symptoms Musculoskeletal: Reports: no symptoms Skin: Reports: no symptoms Neurological: Reports: No Symptoms Psychiatric: Reports: no symptoms - Patient Data Vitals - Most Recent: Last Vital Signs Temp 36.2 C 02/04/17 07:25 Pulse 80 02/04/17 08:44 Resp 20 02/04/17 07:25 BP 100/63 02/04/17 08:46 Pulse Ox 97 02/04/17 07:25 Weight - Most Recent: 115.938 kg I&O - Last 24 hours: Intake & Output 02/03/17 02/04/17 02/04/17 22:59 06:59 14:59 Intake Total 200 Output Total 250 Balance -250 200 Lab Results - Last 24 hrs: Laboratory Results - last 24 hr 02/03/17 02/03/17 02/03/17 Range/Units 07:54 11:16 16:48 POC Glucose 167 H 197 H 129 H (83-110) mg/dl 02/03/17 02/04/17 02/04/17 Range/Units 20:51 07:36 11:11 POC Glucose 128 H 167 H 188 H (83-110) mg/dl Med Orders - Current: Current Medications Acetaminophen (Tylenol) 650 mg PO Q4H PRN PRN Reason: Pain/Fever Last Admin: 02/03/17 18:33 Dose: 650 mg Albuterol/Ipratropium (Duoneb 3.0-0.5 Mg/3 Ml) 3 ml NEB BIDRT [facility] Last Admin: 02/04/17 07:23 Dose: 3 ml Allopurinol (Zyloprim) 100 mg PO DAILY [facility] Last Admin: 02/04/17 08:47 Dose: 100 mg Amlodipine Besylate (Norvasc) 2.5 mg PO DAILY [facility] Last Admin: 02/04/17 08:46 Dose: 2.5 mg Artificial Tears (Liquitears 1.4% Ophth Soln) 0 ml EYEBOTH Q6H PRN PRN Reason: Dry Eyes Aspirin (Halfprin) 81 mg PO DAILY [facility] Last Admin: 02/04/17 08:45 Dose: 81 mg Benzocaine/Menthol (Cepacol Sore Throat) 1 lozenge MUCMEM 6XDAY PRN PRN Reason: Sore Throat Last Admin: 02/02/17 16:23 Dose: 1 lozenge Benzocaine/Menthol (Cepacol Sore Throat) 1 lozenge MUCMEM Q6HR PRN PRN Reason: Sore Throat Last Admin: 02/01/17 12:06 Dose: 1 lozenge Benzonatate (Tessalon Perles) 100 mg PO QID PRN PRN Reason: Cough Last Admin: 01/28/17 18:01 Dose: 100 mg Budesonide (Pulmicort) 0.5 mg NEB BIDRT [facility] Last Admin: 02/04/17 07:23 Dose: 0.5 mg Carvedilol (Coreg) 6.25 mg PO BID [facility] Last Admin: 02/04/17 08:44 Dose: 6.25 mg Dextrose/Water (Dextrose 25% In Water) 10 ml IVPUSH ONETIME PRN PRN Reason: glucose < 60 or symptomatic Docusate Sodium (Colace) 100 mg PO BID PRN PRN Reason: Constipation Fenofibrate (Tricor) 145 mg PO DAILY [facility] Last Admin: 02/04/17 08:47 Dose: 145 mg Furosemide (Lasix) 40 mg PO Q48H [facility] Last Admin: 02/03/17 08:03 Dose: 40 mg Guaifenesin (Robitussin) 100 mg PO Q6H PRN PRN Reason: Cough Last Admin: 01/28/17 18:01 Dose: 100 mg Hydralazine HCl (Apresoline) 50 mg PO Q8H [facility] Last Admin: 02/04/17 05:34 Dose: 50 mg Insulin Aspart (Novolog) 0 unit SUBCUT QID [facility] PRN Reason: Protocol Last Admin: 02/04/17 08:29 Dose: 1 units Insulin Aspart (Novolog) 20 unit SUBCUT TIDAC [facility] Last Admin: 02/04/17 08:31 Dose: 20 units Levothyroxine Sodium (Levothyroxine) 150 mcg PO DAILY@0600 [facility] Last Admin: 02/04/17 05:33 Dose: 150 mcg Pantoprazole Sodium (Protonix) 40 mg PO DAILY [facility] Last Admin: 02/04/17 08:47 Dose: 40 mg Simvastatin (Zocor) 20 mg PO BEDTIME [facility] Last Admin: 02/03/17 20:55 Dose: 20 mg Sodium Bicarbonate (Sodium Bicarbonate) 650 mg PO DAILY [facility] Last Admin: 02/04/17 08:47 Dose: 650 mg Tamsulosin HCl (Flomax) 0.4 mg PO DAILY [facility] Last Admin: 02/04/17 08:45 Dose: 0.4 mg Thiamine HCl (Vitamin B-1) 100 mg PO DAILY [facility] Last Admin: 02/04/17 08:47 Dose: 100 mg Warfarin Sodium (Pharmacy To Dose - Warfarin) 1 dose .XX ASDIRECTED [facility] Warfarin Sodium (Coumadin) 2 mg PO Q48H [facility] Stop: 02/04/17 14:01 Last Admin: 02/02/17 13:17 Dose: 2 mg Warfarin Sodium (Coumadin) 3 mg PO Q48H [facility] Stop: 02/05/17 14:01 Last Admin: 02/03/17 13:20 Dose: 3 mg Discontinued Medications Albuterol/Ipratropium (Duoneb 3.0-0.5 Mg/3 Ml) 3 ml NEB Q8HRRT [facility] Last Admin: 01/31/17 09:04 Dose: Not Given Fenofibrate (Tricor) 145 mg PO DAILY [facility] Furosemide (Lasix) 40 mg PO DAILY [facility] Last Admin: 01/24/17 08:26 Dose: 40 mg Insulin Aspart (Novolog) 30 unit SUBCUT TID [facility] Insulin Aspart (Novolog) 30 unit SUBCUT TIDAC [facility] Last Admin: 02/01/17 12:07 Dose: 30 units Methylprednisolone Sodium Succinate (Solu-Medrol) 20 mg IVPUSH Q12H [facility] Last Admin: 01/25/17 09:08 Dose: 20 mg Non-Formulary Medication (Simvastatin [Simvastatin]) 20 mg PO BEDTIME [facility] Non-Formulary Medication (Hydralazine [Apresoline]) 50 mg PO Q8H [facility] Last Admin: 01/23/17 20:31 Dose: Not Given Nystatin (Mycostatin) 5 ml PO QID [facility] Stop: 02/03/17 11:16 Last Admin: 02/03/17 08:17 Dose: 5 ml Prednisone (Prednisone) 20 mg PO DAILY [facility] PRN Reason: Taper Stop: 02/02/17 08:59 Last Admin: 01/28/17 08:27 Dose: 20 mg Prednisone (Prednisone) 5 mg PO DAILY [facility] PRN Reason: Taper Stop: 02/02/17 08:53 Last Admin: 02/01/17 08:33 Dose: 5 mg Sodium Chloride (Saline Flush) 10 ml FLUSH ASDIRECTED [facility] Last Admin: 01/24/17 19:40 Dose: 10 ml Warfarin Sodium (Pharmacy To Dose - Warfarin) 1 dose .XX ASDIRECTED [facility] Warfarin Sodium (Coumadin) 2 mg PO ONETIME ONE Stop: 01/24/17 14:01 Last Admin: 01/24/17 14:36 Dose: 2 mg Warfarin Sodium (Coumadin) 2 mg PO ONETIME ONE Stop: 01/25/17 14:01 Last Admin: 01/25/17 13:23 Dose: 2 mg Warfarin Sodium (Coumadin) 2 mg PO ONETIME ONE Stop: 01/26/17 14:01 Last Admin: 01/26/17 13:33 Dose: 2 mg Warfarin Sodium (Coumadin) 2 mg PO ONETIME ONE Stop: 01/27/17 14:01 Last Admin: 01/27/17 13:43 Dose: 2 mg Warfarin Sodium (Coumadin) 2 mg PO ONETIME ONE Stop: 01/28/17 14:01 Last Admin: 01/28/17 13:00 Dose: 2 mg Warfarin Sodium (Coumadin) 3 mg PO ONETIME ONE Stop: 01/29/17 14:01 Last Admin: 01/29/17 13:01 Dose: 3 mg Warfarin Sodium (Coumadin) 3 mg PO DAILY@1400 [facility] Stop: 02/01/17 14:01 Last Admin: 02/01/17 13:46 Dose: 3 mg - Exam General: Reports: alert, oriented, cooperative, no acute distress. Denies: mild distress, moderate distress, severe distress, sedated, lethargic, obtunded HEENT: Reports: Pupils equal, Pupils reactive, EOMI, Mucous membr. moist/pink Neck: Reports: supple, trachea midline, no JVD Lungs: Reports: Normal respiratory effort, Decreased breath sounds (with fair air exchange ). Denies: Crackles, Rales, Rhonchi, Rub, Stridor, Wheezing Cardiovascular: Reports: Regular Rate, Regular Rhythm Abdomen: Reports: bowel sounds present, soft, no tenderness, no distension (Male) Exam: Deferred Rectal (Males) Exam: Deferred Back Exam: Reports: normal inspection, full range of motion Extremities: Reports: no edema, normal pulses, no tenderness/swelling, no clubbing, no cyanosis, no calf tenderness Skin: Reports: warm, dry, intact Neurological: Reports: no new focal deficit Psy/Mental Status: Reports: alert, normal affect, normal mood *Q Meaningful Use (DIS) - VTE *Q VTE Criteria *Q: - Stroke *Q Stroke Criteria *Q: - AMI *Q AMI Criteria *Q:
[2017-02-04 12:35] VITALS: BP 111/64
[2017-02-04] MEDS: Warfarin 2 MG Tab PO SCH ×2 (12:36→15:50)
--- NOTE | 2017-02-17 13:17 | EKG ---
01/28/2017- ELVIRA RIVERO - EKG done on an 86-year-old male showing atrial fibrillation, heart rate of 81 beats per minute, normal axis, normal intervals. No acute ST-T wave changes. [facility] /[id number]
== END 2017-02-04 14:40 | disposition home health service (06) | DRG 190 ==
LOC: INTOOBSV 18:07 → DL.MS 18:07 → OBSVTOIN 18:07 → UNDOADMOB 18:07 → DL.MS 18:36 → UNDOADMIN 18:44 → EDSTATUS 18:44 → PREINTOOBSV 18:51 → PREOBSVTOIN 18:51 → UNDOADMOB 18:56 → INTOOBSV 18:56 → OBSVTOIN 18:56 → DL.MS 18:56 → EDSTATUS 19:11 → PREINTOOBSV 19:12 → PREOBSVTOIN 19:20 → DL.MS 19:21 → UNDOADMIN 19:21 → PREINTOOBSV 19:36 → DL.MS 19:37 → UNDOADMOB 19:37 → OBSVTOIN 19:38 → INTOOBSV 19:38 → DL.MS 19:38
PROVIDERS: ADMIT Internal Medicine; ATTEND Internal Medicine
DX: J44.0 Chronic obstructive pulmonary disease with (acute) lower respiratory infection (principal); J18.9 Pneumonia, unspecified organism; E87.1 Hypo-osmolality and hyponatremia; K92.2 Gastrointestinal hemorrhage, unspecified; N17.9 Acute kidney failure, unspecified; J44.1 Chronic obstructive pulmonary disease with (acute) exacerbation; I10 Essential (primary) hypertension; E78.5 Hyperlipidemia, unspecified; E11.9 Type 2 diabetes mellitus without complications; I25.10 Atherosclerotic heart disease of native coronary artery without angina pectoris; Z86.73 Personal history of transient ischemic attack (TIA), and cerebral infarction without residual deficits; N40.0 Benign prostatic hyperplasia without lower urinary tract symptoms; I48.2 Chronic atrial fibrillation; Z79.01 Long term (current) use of anticoagulants; K21.9 Gastro-esophageal reflux disease without esophagitis; E03.9 Hypothyroidism, unspecified; N18.3 Chronic kidney disease, stage 3 (moderate); Z79.4 Long term (current) use of insulin; E66.9 Obesity, unspecified
CPT/HCPCS: 36415; 51702; 71010; 80048; 80053; 81001; 82962; 83880; 85025; 85610; 87040; 87081; 87430; 93005; 94640; 97162-GP; 97166-GO; 97530-GO; 97530-GP; A9270-GY; J1815-GY; J2920; J7050

== ENCOUNTER 2017-08-26 09:28 | Emergency (ER) | payer MEDICARE, BC, MEDICAID ==
[2017-08-26 09:57] VITALS: BP 151/107
--- NOTE | 2017-08-26 10:04 | EDM.PDOC ---
ED HPI GENERAL MEDICAL PROBLEM - General Chief Complaint: Genitourinary Problem Stated Complaint: TESTICLE PAIN Time Seen by Provider: 08/26/17 09:57 Source of Information: Reports: Assisted Records, Provider - History of Present Illness INITIAL COMMENTS - FREE TEXT/NARRATIVE: 87 yo white male c/o one week of scrotum swelling Onset Date: 08/19/17 Onset Time: 09:00 Duration: Day(s): Location: Reports: Pelvis Quality: Reports: Ache Severity: Moderate Improves with: Reports: None Worsens with: Reports: Movement Associated Symptoms: Reports: No Other Symptoms Left Groin Pain Score (Numeric/FACES): 8 - Related Data Allergies Allergy/AdvReac Type Severity Reaction Status Date / Time codeine Allergy Nausea and Verified 01/16/17 00:28 Vomiting cortisone Allergy Shortness Verified 01/16/17 00:28 of Breath Home Meds: Home Meds Carvedilol 6.25 mg PO BID 02/19/15 [History] Fenofibrate 160 mg PO DAILY 02/19/15 [History] Insulin Aspart [NovoLOG] 25 units SUBCUT TID 02/19/15 [History] Insulin Glarg,Human.Rec.Analog [Lantus Solostar] 58 unit SUBCUT DAILY 02/19/15 [ History] Pantoprazole [ProTONIX] 40 mg PO DAILY 02/19/15 [History] Simvastatin 20 mg PO BEDTIME 02/19/15 [History] Sodium Bicarbonate 650 mg PO DAILY 02/19/15 [History] Tamsulosin HCl 0.4 mg PO DAILY 02/19/15 [History] Thiamine Mononitrate [Vitamin B-1] 100 mg PO DAILY 02/19/15 [History] amLODIPine Besylate [Amlodipine Besylate] 2.5 mg PO DAILY 02/19/15 [History] hydrALAZINE [Apresoline] 50 mg PO Q8H 02/19/15 [History] Allopurinol [Zyloprim] 100 mg PO DAILY 01/15/17 [History] Aspirin [Adult Low Dose Aspirin EC] 81 mg PO DAILY 01/15/17 [History] Levothyroxine 150 mcg PO DAILY 01/15/17 [History] Warfarin [Coumadin] 1.25 mg PO DAILY 01/15/17 [History] Albuterol/Ipratropium [DuoNeb 3.0-0.5 MG/3 ML] 3 ml NEB Q4H PRN 30 Days neb 07/14 [Rx] Budesonide [Pulmicort] 0.5 mg NEB BIDRT 30 Days neb 02/04/17 [Rx] Furosemide [Lasix] 40 mg PO Q48H 30 Days tablet 02/04/17 [Rx] hydrALAZINE [Apresoline] 50 mg PO Q8H 30 Days tablet 02/04/17 [Rx] Past Medical History Cardiovascular History: Reports: Afib, CAD, High Cholesterol, Hypertension, Other (See Below) Other Cardiovascular History: lipid disorder, venous insufficency of leg Respiratory History: Reports: SOB Gastrointestinal History: Reports: Diverticulosis, GERD, GI Bleed Other Gastrointestinal History: hx GI Bleed Genitourinary History: Reports: BPH, Urinary Incontinence, Other (See Below) Other Genitourinary History: chronic kidney disease Musculoskeletal History: Reports: Gout, Other (See Below) Other Musculoskeletal History: bone metabolism disorder Neurological History: Reports: CVA Psychiatric History: Reports: Dementia Endocrine/Metabolic History: Reports: Diabetes, Type II, Hyperparathyroidism, Hypothyroidism, Obesity/BMI 30+ Hematologic History: Reports: Other (See Below) Other Hematologic History: microalbuminuria - Infectious Disease History Infectious Disease History: Reports: Chicken Pox, Measles, Mumps - Past Surgical History HEENT Surgical History: Reports: Cataract Surgery, Other (See Below) Cardiovascular Surgical History: Reports: Coronary Artery Bypass, Coronary Artery Stent Male Surgical History: Reports: TURP-Transurethral Resection of Prostate Musculoskeletal Surgical History: Reports: Knee Replacement Social & Family History - Family History Family Medical History: Noncontributory - Tobacco Use Smoking Status *Q: Former Smoker Years of Tobacco use: 30 Packs/Tins Daily: 1 Used Tobacco, but Quit: Yes Month Tobacco Last Used: 12 Second Hand Smoke Exposure: No - Caffeine Use Caffeine Use: Reports: Coffee - Alcohol Use Days Per Week of Alcohol Use: 0 - Recreational Drug Use Recreational Drug Use: No ED ROS GENERAL - Review of Systems Review Of Systems: See Below Constitutional: Reports: No Symptoms HEENT: Reports: No Symptoms Respiratory: Reports: No Symptoms Cardiovascular: Reports: No Symptoms Endocrine: Reports: No Symptoms GI/Abdominal: Reports: No Symptoms : Reports: Pain (in scrotum) Musculoskeletal: Reports: No Symptoms Skin: Reports: Erythema (scrotum) Neurological: Reports: No Symptoms Psychiatric: Reports: No Symptoms Hematologic/Lymphatic: Reports: No Symptoms Immunologic: Reports: No Symptoms ED EXAM, GENERAL - Physical Exam Exam: See Below Exam Limited By: No Limitations General Appearance: Alert, No Apparent Distress Eye Exam: Bilateral Eye: EOMI Ears: Normal External Exam Nose: Normal Inspection Throat/Mouth: Normal Inspection Head: Atraumatic Neck: Normal Inspection Respiratory/Chest: No Respiratory Distress Cardiovascular: Normal Peripheral Pulses Peripheral Pulses: 2+: Radial (L), Radial (R) GI/Abdominal: Normal Bowel Sounds, Soft (Male) Exam: Scrotal Swelling, Scrotum Tenderness (L), Scrotum Tenderness (R) , Testicular Mass Back Exam: Normal Inspection Extremities: Normal Inspection Neurological: Alert, Oriented, CN II-XII Intact, Abnormal Gait (Pt. is Corin lift - CVA) Psychiatric: Normal Affect Skin Exam: Warm, Dry, Erythema (scrotum) Lymphatic: No Adenopathy Course - Vital Signs Text/Narrative:: U/S show Left Hydrocele Last Recorded V/S: Last Vital Signs Temp 36.4 C 08/26/17 09:55 Pulse 73 08/26/17 09:55 Resp 16 08/26/17 09:55 BP 151/107 H 08/26/17 09:55 Pulse Ox 91 L 08/26/17 09:55 - Orders/Labs/Meds Orders: Active Orders 24 hr Category Date Time Status UA W/MICROSCOPIC [URIN] Stat Lab 08/26/17 09:57 Uncollected Labs: Laboratory Tests 08/26/17 Range/Units 10:11 WBC 11.2 H (5.0-10.0) 10^3/uL RBC 4.88 (4.6-6.2) 10^6/uL Hgb 12.8 L (14.0-18.0) g/dL Hct 41.5 (40.0-54.0) % MCV 85.0 (80-100) fL MCH 26.2 L (27.0-34.0) pg MCHC 30.8 L (33.0-35.0) g/dL Plt Count 244 (150-450) 10^3/uL Neut % (Auto) 75.5 H (42.2-75.2) % Lymph % (Auto) 11.0 L (20.5-50.1) % [place] % (Auto) 9.3 H (2-8) % Eos % (Auto) 3.7 H (1.0-3.0) % Baso % (Auto) 0.5 (0.0-1.0) % Departure - Departure Time of Disposition: 13:56 Disposition: Home, Self-Care 01 Condition: Good Clinical Impression: Hydrocele, left - Discharge Information Forms: ED Department Discharge Additional Instructions: Rest Increase fluids F/U w/ UROLOGY to evaluate the Left Hydrocele - My Orders Last 24 Hours: My Active Orders 08/26/17 09:57 UA W/MICROSCOPIC [URIN] Stat - Assessment/Plan Last 24 Hours: My Active Orders 08/26/17 09:57 UA W/MICROSCOPIC [URIN] Stat
--- NOTE | 2017-08-26 12:38 | US ---
Clinical history: 87-year-old male scrotal swelling and pain on the left. Interpretation: Abnormal. 1.* Asymmetric large accumulation of clear fluid in the scrotum on the left (hydrocele). 2. No sign of herniated bowel loop or abnormal bowel peristalsis in the scrotum. 3. Symmetric normal testicular size, anatomic configuration and homogeneous density with good blood f low testes, bilaterally. 4. No sign of testicular infarct, cyst or solid tumor mass. Left testicle measures 3.1 cm L x 3.1 cm W x 2.4 cm AP diameter. Right testicle measures 3.3 cm L x 2 .5 cm diameter. 5. No sign of epididymal mass or inflammation.
== END 2017-08-26 14:50 | disposition home or self-care (01) ==
LOC: DL.ED 09:28
DX: N43.3 Hydrocele, unspecified (principal); I12.9 Hypertensive chronic kidney disease with stage 1 through stage 4 chronic kidney disease, or unspecified chronic kidney disease; E11.22 Type 2 diabetes mellitus with diabetic chronic kidney disease; N18.9 Chronic kidney disease, unspecified; I25.10 Atherosclerotic heart disease of native coronary artery without angina pectoris; E78.00 Pure hypercholesterolemia, unspecified; K21.9 Gastro-esophageal reflux disease without esophagitis; E03.9 Hypothyroidism, unspecified; Z87.891 Personal history of nicotine dependence; Z79.4 Long term (current) use of insulin; Z79.82 Long term (current) use of aspirin; Z79.01 Long term (current) use of anticoagulants; Z79.899 Other long term (current) drug therapy; Z88.5 Allergy status to narcotic agent; Z88.8 Allergy status to other drugs, medicaments and biological substances
CPT/HCPCS: 36415; 76870; 85025; 99284

== ENCOUNTER 2017-08-29 21:52 | Emergency (ER) | payer MEDICARE, BC, MEDICAID ==
--- NOTE | 2017-08-29 22:58 | EDM.PDOC ---
ED HPI GENERAL MEDICAL PROBLEM - General Chief Complaint: Genitourinary Problem Stated Complaint: COMING FROM [facility] Time Seen by Provider: 08/29/17 22:45 Source of Information: Reports: Patient, Family History Limitations: Reports: No Limitations - History of Present Illness INITIAL COMMENTS - FREE TEXT/NARRATIVE: This 87 yo male patient was brought to the ED by [facility] due to left testicular pain. The patient is unable to ambulate requiring a Corin lift. This evening the patient noticed increased pain in the left testicle after being moved. The patient has had increased swelling and pain in the left testicle throughout the evening. The patient reports no additional trauma to the area. The patient also reports no previous similar symptoms in the past. Onset: Today Duration: Constant, Getting Worse Location: Reports: Other (left testicle and scrotum ) Quality: Reports: Ache, Sharp Severity: Moderate Improves with: Reports: None Worsens with: Reports: None Associated Symptoms: Reports: No Other Symptoms - Related Data Allergies Allergy/AdvReac Type Severity Reaction Status Date / Time codeine Allergy Nausea and Verified 08/29/17 22:15 Vomiting cortisone Allergy Shortness Verified 08/29/17 22:15 of Breath Home Meds: Home Meds Carvedilol 6.25 mg PO BID 02/19/15 [History] Fenofibrate 160 mg PO DAILY 02/19/15 [History] Insulin Aspart [NovoLOG] 25 units SUBCUT TID 02/19/15 [History] Insulin Glarg,Human.Rec.Analog [Lantus Solostar] 58 unit SUBCUT DAILY 02/19/15 [ History] Pantoprazole [ProTONIX] 40 mg PO DAILY PRN 02/19/15 [History] Simvastatin 20 mg PO BEDTIME 02/19/15 [History] Sodium Bicarbonate 650 mg PO DAILY 02/19/15 [History] Tamsulosin HCl 0.4 mg PO DAILY 02/19/15 [History] Thiamine Mononitrate [Vitamin B-1] 100 mg PO DAILY 02/19/15 [History] amLODIPine Besylate [Amlodipine Besylate] 2.5 mg PO DAILY 02/19/15 [History] hydrALAZINE [Apresoline] 50 mg PO Q8H 02/19/15 [History] Allopurinol [Zyloprim] 100 mg PO DAILY 01/15/17 [History] Aspirin [Adult Low Dose Aspirin EC] 81 mg PO DAILY 01/15/17 [History] Levothyroxine 150 mcg PO DAILY 01/15/17 [History] Warfarin [Coumadin] 1.25 mg PO DAILY 01/15/17 [History] Albuterol/Ipratropium [DuoNeb 3.0-0.5 MG/3 ML] 3 ml NEB Q4H PRN 30 Days neb 07/14 [Rx] Budesonide [Pulmicort] 0.5 mg NEB BIDRT 30 Days neb 02/04/17 [Rx] Furosemide [Lasix] 40 mg PO Q48H 30 Days tablet 02/04/17 [Rx] hydrALAZINE [Apresoline] 50 mg PO Q8H 30 Days tablet 02/04/17 [Rx] Past Medical History Cardiovascular History: Reports: Afib, CAD, High Cholesterol, Hypertension, Other (See Below) Other Cardiovascular History: lipid disorder, venous insufficency of leg Respiratory History: Reports: SOB Gastrointestinal History: Reports: Diverticulosis, GERD, GI Bleed Other Gastrointestinal History: hx GI Bleed Genitourinary History: Reports: BPH, Urinary Incontinence, Other (See Below) Other Genitourinary History: chronic kidney disease Musculoskeletal History: Reports: Gout, Other (See Below) Other Musculoskeletal History: bone metabolism disorder Neurological History: Reports: CVA Psychiatric History: Reports: Dementia Endocrine/Metabolic History: Reports: Diabetes, Type II, Hyperparathyroidism, Hypothyroidism, Obesity/BMI 30+ Hematologic History: Reports: Other (See Below) Other Hematologic History: microalbuminuria - Infectious Disease History Infectious Disease History: Reports: Chicken Pox, Measles, Mumps - Past Surgical History HEENT Surgical History: Reports: Cataract Surgery, Other (See Below) Cardiovascular Surgical History: Reports: Coronary Artery Bypass, Coronary Artery Stent Male Surgical History: Reports: TURP-Transurethral Resection of Prostate Musculoskeletal Surgical History: Reports: Knee Replacement Social & Family History - Family History Family Medical History: Noncontributory - Tobacco Use Smoking Status *Q: Former Smoker Years of Tobacco use: 30 Packs/Tins Daily: 1 Used Tobacco, but Quit: No Month Tobacco Last Used: 12 Second Hand Smoke Exposure: No - Caffeine Use Caffeine Use: Reports: Coffee, Soda - Alcohol Use Days Per Week of Alcohol Use: 0 - Recreational Drug Use Recreational Drug Use: No ED ROS GENERAL - Review of Systems Review Of Systems: ROS reveals no pertinent complaints other than HPI. ED EXAM, RENAL/ - Physical Exam Exam: See Below Exam Limited By: No Limitations General Appearance: Alert, WD/WN, Moderate Distress Eye Exam: Bilateral Eye: EOMI, Normal Inspection, PERRL Ears: Normal External Exam, Normal Canal, Hearing Grossly Normal, Normal TMs Nose: Normal Inspection, Normal Mucosa, No Blood Throat/Mouth: Normal Inspection, Normal Lips, Normal Teeth, Normal Gums, Normal Oropharynx, Normal Voice, No Airway Compromise Head: Atraumatic, Normocephalic Neck: Normal Inspection, Supple, Non-Tender, Full Range of Motion Respiratory/Chest: No Respiratory Distress, Lungs Clear, Normal Breath Sounds, No Accessory Muscle Use, Chest Non-Tender Cardiovascular: Normal Peripheral Pulses, Regular Rate, Rhythm, No Edema, No Gallop, No JVD, No Murmur, No Rub GI/Abdominal: Normal Bowel Sounds, Soft, Non-Tender, No Organomegaly, No Distention, No Abnormal Bruit, No Mass (Male) Exam: Scrotum Tenderness (L), Testicular Tenderness (L), Other ( swelling of the left ) Rectal (Males) Exam: Deferred Back Exam: Normal Inspection, Full Range of Motion, NT Extremities: Normal Inspection, Normal Range of Motion, Non-Tender, Normal Capillary Refill, No Pedal Edema Neurological: Alert, Oriented, CN II-XII Intact, Normal Cognition, Normal Gait, Normal Reflexes, No Motor/Sensory Deficits Psychiatric: Normal Affect, Normal Mood Skin Exam: Warm, Dry, Intact, Normal Color, No Rash Lymphatic: No Adenopathy Course - Vital Signs Last Recorded V/S: Last Vital Signs Temp 36.7 C 08/29/17 22:38 Pulse 82 08/29/17 22:38 Resp 16 08/29/17 22:38 BP 147/81 H 08/29/17 22:38 Pulse Ox 94 L 08/29/17 22:38 - Orders/Labs/Meds Orders: Active Orders 24 hr Category Date Time Status Insert Alvarado Catheter [Insert Urinary Catheter] [OM.PC] Care 08/29/17 23:00 Ordered Q24H Urinary Catheter Assessment [RC] ASDIRECTED Care 08/29/17 22:51 Active Labs: Laboratory Tests 08/29/17 08/29/17 08/29/17 Range/Units 23:05 23:05 23:34 WBC 11.8 H (5.0-10.0) 10^3/uL RBC 4.89 (4.6-6.2) 10^6/uL Hgb 12.8 L (14.0-18.0) g/dL Hct 41.6 (40.0-54.0) % MCV 85.1 (80-100) fL MCH 26.2 L (27.0-34.0) pg MCHC 30.8 L (33.0-35.0) g/dL Plt Count 308 (150-450) 10^3/uL Neut % (Auto) 74.4 (42.2-75.2) % Lymph % (Auto) 9.8 L (20.5-50.1) % [place] % (Auto) 11.5 H (2-8) % Eos % (Auto) 3.5 H (1.0-3.0) % Baso % (Auto) 0.8 (0.0-1.0) % Add Manual Diff Yes Neutrophils % (Manual) 71 (42-75) % Band Neutrophils % 6 % Lymphocytes % (Manual) 11 L (20-50) % Atypical Lymphs % 0 % Monocytes % (Manual) 10 H (2-8) % Eosinophils % (Manual) 2 (1-3) % Basophils % (Manual) 0 Sodium 140 D (135-145) mmol/L Potassium 4.2 (3.6-5.0) mmol/L Chloride 105 (101-111) mmol/L Carbon Dioxide 28.0 (21.0-31.0) mmol/L Anion Gap 11.2 BUN 30 H D (7-18) mg/dL Creatinine 1.5 H (0.6-1.3) mg/dL Est Cr Clr Drug Dosing 31.32 mL/min Estimated GFR (MDRD) 44 BUN/Creatinine Ratio 20.00 Glucose 148 H (74-105) mg/dL Calcium 8.8 (8.4-10.2) mg/dl Total Bilirubin 0.4 (0.2-1.0) mg/dL AST 17 (10-42) IU/L ALT 11 (10-60) IU/L Alkaline Phosphatase 42 (42-121) IU/L Total Protein 6.0 L (6.7-8.2) g/dl Albumin 3.0 L (3.2-5.5) g/dl Globulin 3.0 Albumin/Globulin Ratio 1.00 Urine Color Yellow (YELLOW) Urine Appearance Cloudy (CLEAR) Urine pH 8.5 (5.0-9.0) Ur Specific [place] 1.015 (1.005-1.030) Urine Protein 30 H (NEGATIVE) Urine Glucose (UA) Negative (NEGATIVE) Urine Ketones Negative (NEGATIVE) Urine Occult Blood Negative (NEGATIVE) Urine Nitrite Negative (NEGATIVE) Urine Bilirubin Negative (NEGATIVE) Urine Urobilinogen 1.0 (0.2-1.0) mg/dL Ur Leukocyte Esterase Large H (NEGATIVE) Urine RBC 0-5 /HPF Urine WBC Packed H (0-5/HPF) /HPF Ur Epithelial Cells Few /HPF Urine Bacteria Many H (0-FEW/HPF) /HPF Urine Mucus Moderate H /LPF Meds: Medications Discontinued Medications Generic Name Dose Route Start Last Admin Trade Name Freq PRN Reason Stop Dose Admin Ciprofloxacin 500 mg 08/30/17 00:24 Ciprofloxacin Hcl PO 08/30/17 00:25 ONETIME ONE Departure - Departure Time of Disposition: 12:26 Disposition: Home, Self-Care 01 Condition: Fair Clinical Impression: UTI, Urinary tract infectious disease, Hydrocele, left - Discharge Information Instructions: Urinary Tract Infection, Adult, [id number], Hydrocele, Adult Forms: ED Department Discharge Care Plan Goals: The patient and were advised of the examination and lab results during the visit. The patient was given an oral dose of Cipro while in the ED. The patient was discharged with a script for Cipro (250 mg) to take 1 by mouth 2 times per day for 5 days. Extra care should be taken to avoid excessive pressure on his left testicle while transferring. The patient should follow-up with urology as previously scheduled. If the patient has any additional symptoms or concerns, the patient should visit his primary care facility or return to the emergency department. - My Orders Last 24 Hours: My Active Orders 08/29/17 22:51 Urinary Catheter Assessment [RC] ASDIRECTED 08/29/17 23:00 Insert Alvarado Catheter [Insert Urinary Catheter] [OM.PC] Q24H - Assessment/Plan Last 24 Hours: My Active Orders 08/29/17 22:51 Urinary Catheter Assessment [RC] ASDIRECTED 08/29/17 23:00 Insert Alvarado Catheter [Insert Urinary Catheter] [OM.PC] Q24H
[2017-08-30] MEDS ORDERED: Ciprofloxacin 500 MG Tab PO ONE (00:24)
[2017-08-30 00:35] VITALS: BP 139/87
== END 2017-08-30 02:03 | disposition home or self-care (01) ==
LOC: DL.ED 21:52
DX: N39.0 Urinary tract infection, site not specified (principal); N43.3 Hydrocele, unspecified; I10 Essential (primary) hypertension; E11.9 Type 2 diabetes mellitus without complications; Z88.5 Allergy status to narcotic agent; Z79.4 Long term (current) use of insulin; Z79.899 Other long term (current) drug therapy; Z79.82 Long term (current) use of aspirin; Z79.01 Long term (current) use of anticoagulants; Z87.891 Personal history of nicotine dependence
CPT/HCPCS: 36415; 80053; 81001; 85025; 99284; A9270; 99283

== ENCOUNTER 2017-09-20 16:37 | Inpatient (IN) | payer MEDICARE, BC, MEDICAID ==
--- NOTE | 2017-09-20 17:11 | EDM.PDOC ---
ED HPI GENERAL MEDICAL PROBLEM - General Chief Complaint: Respiratory Problem Stated Complaint: COMING FROM [facility] Time Seen by Provider: 09/20/17 16:50 Source of Information: Reports: Patient, EMS, Family, [facility] Records, Old Records, RN, RN Notes Reviewed History Limitations: Reports: No Limitations - History of Present Illness INITIAL COMMENTS - FREE TEXT/NARRATIVE: Arrives by ambulance from skilled nursing with c/o not feeling well for over 1 week , and increasing cough with shortness of breath over the past 3 days. Today NH staff found pt to have oxygen sats. in the 88% range and a low grade fever. Pt reports fatigue, generalized weakness, and loss of appetite. Also both have were heavily matted with yellow mucus today. Pt denies chest pain or abdominal pain, vomiting, or lower extremity edema. Admits to occ. nausea. Onset: Gradual Duration: Week(s): (1+) Location: Reports: Chest, Generalized Severity: Moderate Improves with: Reports: None Worsens with: Reports: None Associated Symptoms: Reports: No Other Symptoms - Related Data Allergies Allergy/AdvReac Type Severity Reaction Status Date / Time codeine Allergy Nausea and Verified 08/29/17 22:15 Vomiting cortisone Allergy Shortness Verified 08/29/17 22:15 of Breath Home Meds: Home Meds Carvedilol 6.25 mg PO BID 02/19/15 [History] Insulin Aspart [NovoLOG] 11 units SUBCUT TID 02/19/15 [History] Insulin Glarg,Human.Rec.Analog [Lantus Solostar] 30 unit SUBCUT BID 02/19/15 [ History] Simvastatin 20 mg PO BEDTIME 02/19/15 [History] Sodium Bicarbonate 650 mg PO DAILY 02/19/15 [History] Tamsulosin HCl 0.4 mg PO BEDTIME 02/19/15 [History] Allopurinol [Zyloprim] 100 mg PO DAILY 01/15/17 [History] Levothyroxine 150 mcg PO DAILY 01/15/17 [History] Warfarin [Coumadin] 2.5 mg PO DAILY 01/15/17 [History] hydrALAZINE [Apresoline] 50 mg PO Q8H 30 Days tablet 02/04/17 [Rx] Acetaminophen 650 mg PO Q4HR PRN 09/20/17 [History] Cholecalciferol (Vitamin D3) [Vitamin D3] 1 tab PO DAILY 09/20/17 [History] Donepezil HCl 10 mg PO DAILY 09/20/17 [History] Lutein/Minerals/Vit A,C & E [I-Kahlil] 1 tab PO DAILY 09/20/17 [History] Sennosides/Docusate Sodium [Senna S Tablet] 1 tab PO BID 09/20/17 [History] Thiamine Mononitrate [Vitamin B-1] 100 mg PO DAILY 09/20/17 [History] Warfarin [Coumadin] 2.5 mg PO .Mondays09/20/17 [History] Past Medical History HEENT History: Reports: Impaired Vision Cardiovascular History: Reports: Afib, CAD, High Cholesterol, Hypertension, Other (See Below) Other Cardiovascular History: lipid disorder, venous insufficency of leg Respiratory History: Reports: SOB Gastrointestinal History: Reports: Diverticulosis, GERD, GI Bleed Other Gastrointestinal History: hx GI Bleed Genitourinary History: Reports: BPH, Urinary Incontinence, UTI, Recurrent, Other (See Below) Other Genitourinary History: chronic kidney disease Musculoskeletal History: Reports: Gout, Other (See Below) Other Musculoskeletal History: bone metabolism disorder Neurological History: Reports: CVA Psychiatric History: Reports: Dementia Endocrine/Metabolic History: Reports: Diabetes, Type II, Hyperparathyroidism, Hypothyroidism, Obesity/BMI 30+ Hematologic History: Reports: Other (See Below) Other Hematologic History: microalbuminuria - Infectious Disease History Infectious Disease History: Reports: Chicken Pox, Measles, Mumps - Past Surgical History HEENT Surgical History: Reports: Cataract Surgery, Other (See Below) Cardiovascular Surgical History: Reports: Coronary Artery Bypass, Coronary Artery Stent Male Surgical History: Reports: TURP-Transurethral Resection of Prostate Musculoskeletal Surgical History: Reports: Knee Replacement Social & Family History - Family History Family Medical History: Noncontributory - Tobacco Use Smoking Status *Q: Former Smoker Years of Tobacco use: 30 Packs/Tins Daily: 1 Used Tobacco, but Quit: No Month Tobacco Last Used: 12 Second Hand Smoke Exposure: No - Caffeine Use Caffeine Use: Reports: Coffee, Soda - Alcohol Use Days Per Week of Alcohol Use: 0 - Recreational Drug Use Recreational Drug Use: No - Living Situation & Occupation Living situation: Reports: , Extended Care Facility Occupation: Retired ED ROS GENERAL - Review of Systems Review Of Systems: ROS reveals no pertinent complaints other than HPI. ED EXAM, GENERAL - Physical Exam Exam: See Below Exam Limited By: Physical Impairment (Immobile from CVA deficits) General Appearance: Alert, No Apparent Distress, Obese, Other (chronically ill appearing) Eye Exam: Bilateral Eye: Conjunctival Injection (with thick yellow matted purulent mucus), EOMI, PERRL Ears: Normal External Exam, Hearing Grossly Normal Nose: Normal Inspection, Normal Mucosa, No Blood Throat/Mouth: Normal Lips, Normal Teeth, Normal Gums, Normal Oropharynx, Normal Voice, No Airway Compromise, Other (dry oral membranes) Head: Atraumatic, Normocephalic Neck: Normal Inspection, Supple, Non-Tender, Full Range of Motion Respiratory/Chest: No Respiratory Distress, No Accessory Muscle Use, Chest Non- Tender, Decreased Breath Sounds, Rhonchi (left base), Wheezing (mild scattered wheezes) Cardiovascular: No JVD, Tachycardia, Irregularly Irregular, Other (trace dependent edema) GI/Abdominal: Normal Bowel Sounds, Soft, Non-Tender, No Distention, Other ( benign obese abdomen) (Male) Exam: Deferred Rectal (Males) Exam: Deferred Back Exam: Normal Inspection Extremities: Normal Inspection, Non-Tender Neurological: Alert, Oriented, CN II-XII Intact, Normal Cognition, Sensory/ Motor Deficit (chronic/stable CVA deficits, no acute deficits) Psychiatric: Flat Affect Skin Exam: Warm, Dry, Intact, Normal Color, No Rash EKG INTERPRETATION EKG Date: 09/20/17 Time: 17:56 Rhythm: A-Fib Rate (Beats/Min): 73 [place]: Normal P-Wave: Absent QRS: Normal (w/PVC) ST-T: Normal QT: Normal Comparison: No Change EKG Interpretation Comments: No acute ischemic changes. Course - Vital Signs Last Recorded V/S: Last Vital Signs Temp 35.5 C 09/20/17 16:44 Pulse 116 H 09/20/17 16:44 Resp 24 H 09/20/17 16:44 BP 147/82 H 09/20/17 16:44 Pulse Ox 96 09/20/17 18:10 - Orders/Labs/Meds Orders: Active Orders 24 hr Category Date Time Status EKG 12 Lead [EKG Documentation Completion] [RC] STAT Care 09/20/17 17:22 Active Peripheral IV Care [RC] . DIRECTED Care 09/20/17 17:23 Active RT Aerosol Therapy [RC] ASDIRECTED Care 09/20/17 17:25 Active Chest 1V Frontal [CR] Stat Exams 09/20/17 17:22 Taken CULTURE BLOOD [BC] Stat Lab 09/20/17 17:46 Received CULTURE BLOOD [BC] Stat Lab 09/20/17 17:54 Received UA W/MICROSCOPIC [URIN] Stat Lab 09/20/17 17:23 Uncollected Sodium Chloride 0.9% [Normal Saline] 1,000 ml Med 09/20/17 17:32 Active IV .BOLUS Sodium Chloride 0.9% [Saline Flush] Med 09/20/17 17:21 Active 10 ml FLUSH ASDIRECTED PRN Blood Culture x2 Reflex Set [OM.PC] Stat Oth 09/20/17 17:23 Ordered Peripheral IV Insertion Adult [OM.PC] Stat Oth 09/20/17 17:22 Ordered Medication Orders Sodium Chloride (Normal Saline) 1,000 mls @ 500 mls/hr IV .BOLUS ONE Stop: 09/20/17 19:31 Last Admin: 09/20/17 18:13 Dose: 500 mls/hr Sodium Chloride (Saline Flush) 10 ml FLUSH ASDIRECTED PRN PRN Reason: Keep Vein Open Last Admin: 09/20/17 17:49 Dose: 10 ml Labs: Laboratory Tests 09/20/17 09/20/17 09/20/17 Range/Units 17:46 17:54 17:54 WBC 11.5 H (5.0-10.0) 10^3/uL RBC 5.12 (4.6-6.2) 10^6/uL Hgb 13.1 L (14.0-18.0) g/dL Hct 43.5 (40.0-54.0) % MCV 85.0 (80-100) fL MCH 25.6 L (27.0-34.0) pg MCHC 30.1 L (33.0-35.0) g/dL Plt Count 236 (150-450) 10^3/uL Neut % (Auto) 75.7 H (42.2-75.2) % Lymph % (Auto) 9.9 L (20.5-50.1) % [place] % (Auto) 10.9 H (2-8) % Eos % (Auto) 3.1 H (1.0-3.0) % Baso % (Auto) 0.4 (0.0-1.0) % PT (9.0-12.0) SEC INR (0.9-1.2) Sodium 137 (135-145) mmol/L Potassium 4.2 (3.6-5.0) mmol/L Chloride 100 L (101-111) mmol/L Carbon Dioxide 28.0 (21.0-31.0) mmol/L Anion Gap 13.2 BUN 29 H (7-18) mg/dL Creatinine 1.5 H (0.6-1.3) mg/dL Est Cr Clr Drug Dosing 25.46 mL/min Estimated GFR (MDRD) 44 BUN/Creatinine Ratio 19.33 Glucose 120 H (74-105) mg/dL Lactic Acid 0.8 (0.5-2.2) mmol/L Calcium 8.8 (8.4-10.2) mg/dl Total Bilirubin 0.3 (0.2-1.0) mg/dL AST 14 (10-42) IU/L ALT 11 (10-60) IU/L Alkaline Phosphatase 56 (42-121) IU/L Troponin I 0.02 (0.00-0.02) ng/ml B-Natriuretic Peptide 175 H (0-100) pg/ml Total Protein 6.5 L (6.7-8.2) g/dl Albumin 3.3 (3.2-5.5) g/dl Globulin 3.2 Albumin/Globulin Ratio 1.03 24/17 Range/Units 17:54 WBC (5.0-10.0) 10^3/uL RBC (4.6-6.2) 10^6/uL Hgb (14.0-18.0) g/dL Hct (40.0-54.0) % MCV (80-100) fL MCH (27.0-34.0) pg MCHC (33.0-35.0) g/dL Plt Count (150-450) 10^3/uL Neut % (Auto) (42.2-75.2) % Lymph % (Auto) (20.5-50.1) % [place] % (Auto) (2-8) % Eos % (Auto) (1.0-3.0) % Baso % (Auto) (0.0-1.0) % PT 12.1 H D (9.0-12.0) SEC INR 1.2 (0.9-1.2) Sodium (135-145) mmol/L Potassium (3.6-5.0) mmol/L Chloride (101-111) mmol/L Carbon Dioxide (21.0-31.0) mmol/L Anion Gap BUN (7-18) mg/dL Creatinine (0.6-1.3) mg/dL Est Cr Clr Drug Dosing mL/min Estimated GFR (MDRD) BUN/Creatinine Ratio Glucose (74-105) mg/dL Lactic Acid (0.5-2.2) mmol/L Calcium (8.4-10.2) mg/dl Total Bilirubin (0.2-1.0) mg/dL AST (10-42) IU/L ALT (10-60) IU/L Alkaline Phosphatase (42-121) IU/L Troponin I (0.00-0.02) ng/ml B-Natriuretic Peptide (0-100) pg/ml Total Protein (6.7-8.2) g/dl Albumin (3.2-5.5) g/dl Globulin Albumin/Globulin Ratio Meds: Medications Generic Name Dose Route Start Last Admin Trade Name Freq PRN Reason Stop Dose Admin Sodium Chloride 1,000 mls @ 500 mls/hr 09/20/17 17:32 09/20/17 18:13 Normal Saline IV 09/20/17 19:31 500 mls/hr .BOLUS ONE Administration Sodium Chloride 10 ml 09/20/17 17:21 09/20/17 17:49 Saline Flush FLUSH 10 ml ASDIRECTED PRN Administration Keep Vein Open Discontinued Medications Generic Name Dose Route Start Last Admin Trade Name Freq PRN Reason Stop Dose Admin Albuterol/Ipratropium 3 ml 09/20/17 17:25 09/20/17 18:08 Duoneb 3.0-0.5 Mg/3 Ml NEB 09/20/17 17:26 3 ml ONETIME ONE Administration Ceftriaxone Sodium 1 gm 09/20/17 17:31 09/20/17 18:22 Rocephin IVPUSH 09/20/17 17:32 1 gm ONETIME ONE Administration Gentamicin Sulfate 1 gm 09/20/17 17:25 09/20/17 18:14 Gentak 0.3% Ophth Oint EYEBOTH 09/20/17 17:26 1 gram ONETIME ONE Administration Azithromycin 500 mg/ Sodium 250 mls @ 250 mls/hr 09/20/17 17:32 09/20/17 18: 27 Chloride IV 09/20/17 18:31 250 mls/hr ONETIME ONE Administration - Radiology Interpretation Free Text/Narrative:: CXR: left basilar infiltrate vs effusion; see Rad. report. Departure - Departure Time of Disposition: 18:52 (admitted to Dr. Mccormick) Disposition: Admitted As Inpatient 68 Condition: Serious Clinical Impression: Bacterial conjunctivitis of both eyes, Hypoxia, Subtherapeutic anticoagulation , Chronic atrial fibrillation Pneumonia Qualifiers: Pneumonia type: due to unspecified organism Laterality: left Lung location: lower lobe of lung Qualified Code(s): J18.1 - Lobar pneumonia, unspecified organism Diabetes mellitus type 2 with complications Qualifiers: Diabetes mellitus roll panner insulin use: with roll panner use Qualified Code(s): E11.8 - Type 2 diabetes mellitus with unspecified complications; Z79.4 - oxyacetylene cutter (current) use of insulin; Z79.4 - oxyacetylene cutter (current) use of insulin; Z79.4 - prison (current) use of insulin; Z79.4 - prison (current) use of insulin - Discharge Information Forms: ED Department Discharge - My Orders Last 24 Hours: My Active Orders 09/20/17 17:21 Sodium Chloride 0.9% [Saline Flush] 10 ml FLUSH ASDIRECTED PRN 09/20/17 17:22 EKG 12 Lead [EKG Documentation Completion] [RC] STAT Chest 1V Frontal [CR] Stat Peripheral IV Insertion Adult [OM.PC] Stat 09/20/17 17:23 Peripheral IV Care [RC] . DIRECTED UA W/MICROSCOPIC [URIN] Stat Blood Culture x2 Reflex Set [OM.PC] Stat 09/20/17 17:25 RT Aerosol Therapy [RC] ASDIRECTED 09/20/17 17:32 Sodium Chloride 0.9% [Normal Saline] 1,000 ml IV .BOLUS 09/20/17 17:46 CULTURE BLOOD [BC] Stat 09/20/17 17:54 CULTURE BLOOD [BC] Stat - Assessment/Plan Last 24 Hours: My Active Orders 09/20/17 17:21 Sodium Chloride 0.9% [Saline Flush] 10 ml FLUSH ASDIRECTED PRN 09/20/17 17:22 EKG 12 Lead [EKG Documentation Completion] [RC] STAT Chest 1V Frontal [CR] Stat Peripheral IV Insertion Adult [OM.PC] Stat 09/20/17 17:23 Peripheral IV Care [RC] . DIRECTED UA W/MICROSCOPIC [URIN] Stat Blood Culture x2 Reflex Set [OM.PC] Stat 09/20/17 17:25 RT Aerosol Therapy [RC] ASDIRECTED 09/20/17 17:32 Sodium Chloride 0.9% [Normal Saline] 1,000 ml IV .BOLUS 09/20/17 17:46 CULTURE BLOOD [BC] Stat 09/20/17 17:54 CULTURE BLOOD [BC] Stat
[2017-09-20] MEDS ORDERED: Albuterol/Ipratropium 3.0-0.5 MG/3 ML Neb Soln NEB ONE (17:25)
[2017-09-20] MEDS ORDERED: cefTRIAXone 1 GM Vial IVPUSH ONE ×2 (17:31→20:48)
[2017-09-20] MEDS ORDERED: Sodium Chloride 0.9% 1,000 ML IV ONE (17:32)
[2017-09-20] MEDS ORDERED: Azithromycin 500 MG in Sodium Chloride 0.9% 250 ML IV ONE (17:32)
[2017-09-20] MEDS: Sodium Chloride 0.9% 10 ML Syringe FLUSH PRN (17:49)
--- NOTE | 2017-09-20 19:24 | PCM.HP ---
H&P History of Present Illness - General Date of Service: 09/20/17 Admit Problem/Dx: Admitted with: Notfeeling well for over 1 week, and increasing cough with shortness of breath over the past 3 days with cough and yellow sputum Source of Information: Patient, Custodial Records, Old Records History Limitations: Reports: No Limitations - History of Present Illness Initial Comments - Free Text/Narative: Mr. Angel Mares is an 87-year-old male with Hypertension long standing , DM -II with no known neuropathy or retinopathy,history of CVA with left hemiparesis, BPH, Chronic kidney disease slowly progressive (creatinine ~ Base line ~2.1-2.6 mg/dl) and was slowly increasing but now Improved He denied any fever, chill, wt loss, Dysuria, appetite is ~Very good Today Creatinine was 1.5~mg/dl , Today he [facility] with c/o not feeling well for over 1 week , and increasing cough with shortness of breath over the past 3 days. Today NH staff checked his oxygen sats and it was in the 88% range and also reported a low grade fever. Pt reports fatigue, generalized weakness, and loss of appetite.he also has cough with yellow sputum Pt denies chest pain or abdominal pain, vomiting, or lower extremity edema. Onset of Symptoms: Reports: Gradual Duration of Symptoms: Reports: Day(s): Associated Symptoms: Reports: cough w sputum, Fever/Chills - Related Data Allergies/Adverse Reactions: Allergies Allergy/AdvReac Type Severity Reaction Status Date / Time codeine Allergy Nausea and Verified 09/20/17 19:45 Vomiting cortisone Allergy Shortness Verified 09/20/17 19:45 of Breath Home Medications: Home Meds Carvedilol 6.25 mg PO BID 02/19/15 [History] Insulin Aspart [NovoLOG] 11 units SUBCUT TID 02/19/15 [History] Insulin Glarg,Human.Rec.Analog [Lantus Solostar] 30 unit SUBCUT BID 02/19/15 [ History] Simvastatin 20 mg PO BEDTIME 02/19/15 [History] Sodium Bicarbonate 650 mg PO DAILY 02/19/15 [History] Tamsulosin HCl 0.4 mg PO BEDTIME 02/19/15 [History] Allopurinol [Zyloprim] 100 mg PO DAILY 01/15/17 [History] Levothyroxine 150 mcg PO DAILY 01/15/17 [History] Warfarin [Coumadin] 2.5 mg PO DAILY 01/15/17 [History] hydrALAZINE [Apresoline] 50 mg PO Q8H 30 Days tablet 02/04/17 [Rx] Acetaminophen 650 mg PO Q4HR PRN 09/20/17 [History] Cholecalciferol (Vitamin D3) [Vitamin D3] 1 tab PO DAILY 09/20/17 [History] Donepezil HCl 10 mg PO DAILY 09/20/17 [History] Lutein/Minerals/Vit A,C & E [I-Kahlil] 1 tab PO DAILY 09/20/17 [History] Sennosides/Docusate Sodium [Senna S Tablet] 1 tab PO BID 09/20/17 [History] Thiamine Mononitrate [Vitamin B-1] 100 mg PO DAILY 09/20/17 [History] Warfarin [Coumadin] 2.5 mg PO .Mondays09/20/17 [History] Past Medical History HEENT History: Reports: Impaired Vision Cardiovascular History: Reports: Afib, CAD, High Cholesterol, Hypertension, Other (See Below) Other Cardiovascular History: lipid disorder, venous insufficency of leg Respiratory History: Reports: SOB Gastrointestinal History: Reports: Diverticulosis, GERD, GI Bleed Other Gastrointestinal History: hx GI Bleed Genitourinary History: Reports: BPH, Urinary Incontinence, UTI, Recurrent, Other (See Below) Other Genitourinary History: chronic kidney disease Musculoskeletal History: Reports: Gout, Other (See Below) Other Musculoskeletal History: bone metabolism disorder Neurological History: Reports: CVA Psychiatric History: Reports: Dementia Endocrine/Metabolic History: Reports: Diabetes, Type II, Hyperparathyroidism, Hypothyroidism, Obesity/BMI 30+ Hematologic History: Reports: Other (See Below) Other Hematologic History: microalbuminuria - Infectious Disease History Infectious Disease History: Reports: Chicken Pox, Measles, Mumps - Past Surgical History HEENT Surgical History: Reports: Cataract Surgery, Other (See Below) Cardiovascular Surgical History: Reports: Coronary Artery Bypass, Coronary Artery Stent Male Surgical History: Reports: TURP-Transurethral Resection of Prostate Musculoskeletal Surgical History: Reports: Knee Replacement Social & Family History - Family History Family Medical History: Noncontributory - Tobacco Use Smoking Status *Q: Former Smoker Years of Tobacco use: 30 Packs/Tins Daily: 1 Used Tobacco, but Quit: No Month Tobacco Last Used: 12 Second Hand Smoke Exposure: No - Caffeine Use Caffeine Use: Reports: Coffee, Soda - Alcohol Use Days Per Week of Alcohol Use: 0 - Recreational Drug Use Recreational Drug Use: No - Living Situation & Occupation Living situation: Reports: , Extended Care Facility Occupation: Retired H&P Review of Systems - Review of Systems: Review Of Systems: See Below General: Reports: Fever (low grade), Weakness, Fatigue HEENT: Denies: Dysphasia, Headaches, Sinus Congestion, Sore Throat, Visual Changes Pulmonary: Reports: Shortness of Breath, Cough, Sputum Cardiovascular: Denies: Chest Pain, Palpitations, Lightheadedness Gastrointestinal: Denies: Abdominal Pain, Difficulty Swallowing, Nausea, Vomiting Genitourinary: Denies: Dysuria, Frequency, Burning, Urgency Musculoskeletal: Denies: Shoulder Pain, Arm Pain, Leg Pain, Foot Pain Skin: Denies: Cyanosis, Diaphoresis, Bruising, Pruritis, Rash Psychiatric: Denies: Anxiety, Suicidal Ideation Neurological: Denies: Confusion, Tingling, Tremors Exam - Exam Exam: See Below - Vital Signs Vital Signs: Last Vital Signs Temp 35.5 C 09/20/17 16:44 Pulse 116 H 09/20/17 16:44 Resp 24 H 09/20/17 16:44 BP 147/82 H 09/20/17 16:44 Pulse Ox 96 09/20/17 18:10 Weight: 114.986 kg - Exam Quality Assessment: Supplemental Oxygen, DVT Prophylaxis. No: Urinary Catheter General: Alert, Oriented, Cooperative HEENT: Hearing Intact, Mucosa Moist & [place], Other (B/L red eye with likely conjunctivitis ) Neck: Supple. No: Lymphadenopathy, Thyromegaly Lungs: Clear to Auscultation, Normal Respiratory Effort, Crackles, Wheezing ( mild) Cardiovascular: Irregular Rhythm, Tachycardia, Systolic Murmur GI/Abdominal Exam: Normal Bowel Sounds, Soft, Non-Tender, No Distention. No: Guarding, Rigid, Rebound (Male) Exam: Deferred Rectal (Males) Exam: Deferred Back Exam: Normal Inspection Extremities: Normal Inspection, Normal Range of Motion, Pedal Edema Skin: Warm, Dry, Intact Neurological: Cranial Nerves Intact, Reflexes Equal Bilateral Neuro Extensive - Mental Status: Alert, Oriented x3, Normal Mood/Affect, Normal Cognition, Memory Intact Neuro Extensive - Motor, Sensory, Reflexes: CN II-XII Intact, Other (wheel chair bound) Psychiatric: Alert, Normal Affect, Normal Mood - Patient Data Result Diagrams: 09/20/17 17:54 09/20/17 17:54 *Q Meaningful Use (ADM) - VTE *Q VTE Criteria *Q: - Stroke *Q Stroke Criteria *Q: - AMI *Q AMI Criteria *Q: - Problem List (1) Bacterial conjunctivitis of both eyes SNOMED Code(s): 289437239 ICD Code: H10.9 - UNSPECIFIED CONJUNCTIVITIS Status: Acute Current Visit : Yes (2) Chronic atrial fibrillation SNOMED Code(s): 130867150 ICD Code: I48.2 - CHRONIC ATRIAL FIBRILLATION Status: Acute Current Visit : Yes (3) Hypoxia SNOMED Code(s): 864109257 ICD Code: R09.02 - HYPOXEMIA Status: Acute Current Visit: Yes (4) Pneumonia SNOMED Code(s): 003172605 ICD Code: J18.9 - PNEUMONIA, UNSPECIFIED ORGANISM Status: Acute Current Visit: Yes Qualifiers: Pneumonia type: due to unspecified organism Laterality: left Lung location: lower lobe of lung Qualified Code(s): J18.1 - Lobar pneumonia, unspecified organism (5) Subtherapeutic anticoagulation SNOMED Code(s): 47173014 ICD Code: Z51.81 - ENCOUNTER FOR THERAPEUTIC DRUG LEVEL MONITORING; Z79.01 - GUIDE DELEGATE (CURRENT) USE OF ANTICOAGULANTS Status: Acute Current Visit: Yes Problem List Initiated/Reviewed/Updated: Yes Orders Last 24hrs: Medication Orders Sodium Chloride (Normal Saline) 1,000 mls @ 500 mls/hr IV .BOLUS ONE Stop: 09/20/17 19:31 Last Admin: 09/20/17 18:13 Dose: 500 mls/hr Sodium Chloride (Saline Flush) 10 ml FLUSH ASDIRECTED PRN PRN Reason: Keep Vein Open Last Admin: 09/20/17 17:49 Dose: 10 ml Assessment/Plan Comment:: Mr. Angel Mares is an 87-year-old male with Hypertension long standing , DM -II with no known neuropathy or retinopathy,history of CVA with left hemiparesis, BPH, Chronic kidney disease slowly progressive (creatinine ~ Base line ~2.1-2.6 mg/dl) and was slowly increasing but now Improved He denied any fever, chill, wt loss, Dysuria, appetite is ~Very good Today Creatinine was 1.5~mg/dl , Today [facility] [place] [facility] with c/o not feeling well for over 1 week , and increasing cough with shortness of breath over the past 3 days. Today NH staff checked his oxygen sats and it was in the 88% range and also reported a low grade fever. Pt reports fatigue, generalized weakness, and loss of appetite.he also has cough with yellow sputum Pt denies chest pain or abdominal pain, vomiting, or lower extremity edema. CXR : reviewed my me cardiomegaly and B/L lower lobe opacities 1. Community acquired Pneumonia: CXR showing B/L lower lobe opacites -Will start him on IV aziothromycin and IV Ceftriaxone -Will continue [place] oxygen to keep o2 sat >90% -Will also satrt him on Duo-neb -encourage to use incentive spectrometry and flutter valve 2. Hypoxia: This is likely from #1 and management as in in #1 3. B/L bacterial Conjunctivitis: will continue Gentamicin ophthalmic ointment 4. Chronic A-Fib: Rate controlled and will continue coumadin ( dosed by Pharmacy ) 5. Hypertension: Continue Hydralazine 50 mg TID 6.Diabetes II: on insulin 7. DVT Prophylaxis: on coumadin 8. GI prophylaxis: start protonix 40 mg daily 9. Code Status: Discussed with : He is DNR/DNI
[2017-09-20] MEDS ORDERED: cefTRIAXone 2 GM Vial IVPUSH SCH (20:30)
[2017-09-20] MEDS ORDERED: Azithromycin 500 MG in Sodium Chloride 0.9% 250 ML IV SCH (20:30)
[2017-09-20] MEDS ORDERED: Bisacodyl 10 MG Supp RECTAL PRN (20:33)
[2017-09-20] MEDS ORDERED: Docusate Sodium 100 MG Cap PO PRN (20:33)
[2017-09-20] MEDS ORDERED: Acetaminophen 325 MG Tab PO PRN (21:04)
[2017-09-20] MEDS ORDERED: Warfarin 2.5 MG Tab PO ONE (21:15)
[2017-09-20] MEDS: hydrALAZINE 25 MG Tab PO SCH (21:30)
[2017-09-20] MEDS: Carvedilol 6.25 MG Tab PO SCH (21:34)
[2017-09-20] MEDS: Insulin Detemir 100 Units/ML 3 ML Pen SUBCUT SCH (21:36)
[2017-09-20] MEDS: Insulin Aspart 100 Units/ML 3 ML Pen SUBCUT SCH (21:37)
[2017-09-20] MEDS: Albuterol 0.083% 2.5 MG/3 ML Neb Soln NEB PRN (21:44)
[2017-09-20] MEDS: Simvastatin 10 MG Tab PO SCH (21:44)
[2017-09-20] MEDS: Albuterol/Ipratropium 3.0-0.5 MG/3 ML Neb Soln NEB SCH (23:06)
[2017-09-21] MEDS: hydrALAZINE 25 MG Tab PO SCH ×3 (04:19→20:22)
[2017-09-21] MEDS: Albuterol 0.083% 2.5 MG/3 ML Neb Soln NEB PRN ×2 (04:21→17:15)
[2017-09-21] MEDS: Pantoprazole 40 MG Tab.CR PO SCH (06:01)
[2017-09-21] MEDS: Albuterol/Ipratropium 3.0-0.5 MG/3 ML Neb Soln NEB SCH ×3 (07:45→23:05)
[2017-09-21] MEDS ORDERED: Warfarin 2.5 MG Tab PO SCH ×2 (09:00)
[2017-09-21] MEDS: Thiamine 100 MG Tab PO SCH (09:12)
[2017-09-21] MEDS: Allopurinol 100 MG Tab PO SCH (09:12)
[2017-09-21] MEDS: Carvedilol 6.25 MG Tab PO SCH ×2 (09:12→20:23)
[2017-09-21] MEDS: Donepezil 10 MG Tab PO SCH (09:12)
[2017-09-21] MEDS: Levothyroxine 150 MCG Tab PO SCH (09:12)
[2017-09-21] MEDS: Sodium Bicarbonate 650 MG Tab PO SCH (09:12)
[2017-09-21] MEDS: Insulin Aspart 100 Units/ML 3 ML Pen SUBCUT SCH ×3 (09:13→21:21)
[2017-09-21] MEDS: Cholecalciferol (Vitamin D3) 400 Unit Tab PO SCH (09:13)
[2017-09-21] MEDS: Insulin Detemir 100 Units/ML 3 ML Pen SUBCUT SCH ×2 (09:13→21:16)
[2017-09-21] MEDS ORDERED: Warfarin 5 MG Tab PO SCH (14:00)
[2017-09-21] MEDS ORDERED: cefTRIAXone 2 GM Vial IVPUSH SCH (18:00)
[2017-09-21] MEDS ORDERED: Azithromycin 500 MG in Sodium Chloride 0.9% 250 ML IV SCH (18:00)
[2017-09-21] MEDS: Sodium Chloride 0.9% 10 ML Syringe FLUSH PRN (20:00)
[2017-09-21] MEDS: Simvastatin 10 MG Tab PO SCH (20:22)
[2017-09-21] MEDS ORDERED: Simvastatin 10 MG Tab PO SCH (21:00)
[2017-09-22] MEDS ORDERED: LORazepam 0.5 MG Tab PO ONE (00:18)
[2017-09-22] MEDS: hydrALAZINE 25 MG Tab PO SCH (04:49)
[2017-09-22] MEDS: Pantoprazole 40 MG Tab.CR PO SCH (06:19)
[2017-09-22] MEDS: Albuterol/Ipratropium 3.0-0.5 MG/3 ML Neb Soln NEB SCH (07:35)
[2017-09-22 07:44] VITALS: BP 144/67
[2017-09-22] MEDS ORDERED: hydrALAZINE 25 MG Tab PO SCH (14:00)
[2017-09-22] MEDS ORDERED: Warfarin 5 MG Tab PO SCH (14:00)
[2017-09-22] MEDS: Donepezil 10 MG Tab PO SCH (15:34)
[2017-09-22] MEDS: Carvedilol 6.25 MG Tab PO SCH (15:34)
[2017-09-22] MEDS: Insulin Detemir 100 Units/ML 3 ML Pen SUBCUT SCH (15:36)
[2017-09-22] MEDS: Insulin Aspart 100 Units/ML 3 ML Pen SUBCUT SCH (15:37)
[2017-09-22] MEDS: Levothyroxine 150 MCG Tab PO SCH (15:37)
[2017-09-22] MEDS: Sodium Bicarbonate 650 MG Tab PO SCH (15:38)
[2017-09-22] MEDS: Thiamine 100 MG Tab PO SCH (15:38)
[2017-09-22] MEDS: Cholecalciferol (Vitamin D3) 400 Unit Tab PO SCH (15:39)
[2017-09-22] MEDS: Allopurinol 100 MG Tab PO SCH (15:40)
--- NOTE | 2017-09-28 18:37 | EKG ---
09/20/2017 - ELVIRA RIVERO C - FINDINGS: This 12-lead EKG shows atrial fibrillation with an average ventricular rate of 73 (56 to 87). Normal axis and intervals. Occasional PVC. No acute ST-segment or T-wave changes. [facility] /[id number]
--- NOTE | 2017-11-03 09:15 | PN ---
DATE: 09/21/2017 SUBJECTIVE: Mr. Mares is an 87-year-old gentleman, who was a resident at the [facility]. He presented yesterday with a productive cough and shortness of breath. He had been ill for about 1 week with increasing cough and increasing shortness of breath 3 days prior to admission. He was also noted to be hypoxic with oxygen saturations down into the higher 80% range. Appetite was poor. He was sent to the emergency room for further management. Lab work at the time of admission, showed a white count of 11.5. Chest x-ray showed possible lower lobe infiltrates. He is admitted for further management. Review of his clinical data shows that he is taking in fluids. He is voiding and moving his bowels. Appetite is fairly good. Vital signs are stable. He has been afebrile since his time of admission. Two sets of blood cultures remain without growth. Repeat lab work this morning includes a CBC; white count is 12.3 with 77% neutrophils. Hemoglobin and hematocrit stable at 13 and 44, platelets are normal. INR this morning was 1.2. Blood sugars are being followed and they have been well controlled since admission. PHYSICAL EXAMINATION: General: On exam, Mr. Mares is an 87-year-old gentleman, known to the staff from previous care. He voices no new concerns or complaints. He denies any chest pain. Shortness of breath has improved. No abdominal pain. No vomiting or diarrhea. No sore throat. No other symptoms of concern. Vital Signs: Blood pressure 144/67, pulse 75, respiratory rate 18, oxygen saturation 88% on room air. He was afebrile. HEENT: Unremarkable. ENT was clear. Chest: Exam showed diminished bilateral breath sounds with occasional scattered wheezes. Heart: Showed irregular rate and rhythm (atrial fibrillation). Abdomen: Obese, soft, and benign. Extremities: Showed chronic lower extremity edema. Neurological: There are no gross motor or sensory deficits. PLAN: We will continue the present management, which consists of ceftriaxone 2 g IV every 24 hours and azithromycin 500 mg IV every 24 hours. He is receiving DuoNeb nebulizer treatment as well as p.r.n. albuterol. He continues on the remainder of his medications. Dose adjustments for the Coumadin are being made by pharmacy. Overall, he is doing better. Our plan is to discharge back to the [facility] tomorrow. [facility] /[id number] [facility]
--- NOTE | 2017-11-04 03:34 | DISCH ---
DIAGNOSES: 1. Productive cough, shortness of breath, and hypoxia, improved. 2. Bilateral lower lobe opacities. 3. 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 HISTORY OF PRESENT ILLNESS: Mr. Mares is an 87-year-old gentleman from [facility], who presented to the Emergency Department with productive cough, shortness of breath, and hypoxia. [facility] stated he had been ill for about a week with increasing cough and increasing shortness of breath during the 3 days prior to admission. On the day of admission, he was noted to have oxygen sats in the upper 80% on room air, and he was sent to the emergency room for further evaluation. There have been no other symptoms. No vomiting. No diarrhea. No documented fever. In the ER, he was noted to have a mild leukocytosis of 11.5. Chemistries otherwise unremarkable. Chest x-ray showed possible bilateral lower lobe infiltrates, and he was initially hypoxic on room air at 89%. This improved to 92% when he was placed on 2 L nasal oxygen. He was admitted for further management. PERTINENT LABS AND X-RAYS: CBC on the day of admission showed a white count 11.5, on repeat was 12.3 with 77% neutrophils. Hemoglobin and hematocrit were stable at 13 and 44. Platelets were normal. INR was followed during the admission and was somewhat subtherapeutic at 1.3. His blood sugars were monitored throughout the admission and were well controlled with all sugars under 150. Chemistries at the time of admission showed normal electrolytes. BUN and creatinine were 29 and 1.5 with a GFR of 44. LFTs were unremarkable. Lactic acid was normal at 0.8. Troponin was negative at 0.02. BNP was only minimally elevated at 175. Two sets of blood cultures remain without any growth. Twelve-lead EKG at the time of admission showed atrial fibrillation with a ventricular rate of 73. There was normal axis and intervals. Occasional PVC and no acute ST-T wave changes. HOSPITAL COURSE: Mr. Mares was admitted as an acute inpatient. His usual medications were continued. He was started on nebulized bronchodilator therapy. He received azithromycin 500 mg IV every 24 hours and ceftriaxone 2 g IV every 24 hours. He was already on warfarin. This will be enough for VTE prophylaxis, and his warfarin dosing was managed by Telepharmacy. His usual medications were continued, and blood sugars were monitored. He did well. Cough and shortness of breath improved. He was using incentive spirometer and flutter valve, and he was encouraged to use this on a regular basis. On the day of discharge, he was doing much better. Cough and shortness of breath were less. On exam, he denies any new symptoms. No chest pain. No increased shortness of breath. No abdominal pain. No other symptoms of concern. PHYSICAL EXAMINATION: Vital Signs: Blood pressure was 144/67, pulse 103, respiratory rate 18, oxygen saturation 88% on room air and 92% on 2 L, temperature 97.8, height 5 feet, weight 253 pounds. HEENT: Unremarkable. ENT was clear. Chest: Showed diminished bilateral breath sounds. Occasional wheeze. Heart: Showed regular rate and rhythm. Abdomen: Obese and benign. Extremities: Showed chronic lower extremity edema. Neurological: He is intact. PLAN: He will be discharged back to the [facility]. He will continue his usual medications which include: 1. Acetaminophen. 2. Allopurinol. 3. Carvedilol. 4. Vitamin D3. 5. Donepezil. 6. Lantus insulin. 7. NovoLog insulin. 8. Levothyroxine. 9. I-Kahlil. 10.Senna S. 11.Simvastatin. 12.Sodium bicarbonate. 13.Tamsulosin. 14.Thiamine. 15.Warfarin. 16.Hydralazine. See [facility] for complete dosing and scheduling information. He will continue on azithromycin 500 mg daily for another 3 days. He will follow up with his usual care provider per [facility] routine. They should return for further evaluation if symptoms worsen. CONDITION AT THE TIME OF DISCHARGE: Improved and stable. CODE STATUS: During this admission was DNR/DNI. [facility] /[id number]
== END 2017-09-22 11:50 | DRG 194 ==
LOC: DL.ED 16:37 → DL.MS 18:57 → UNDOADMIN 18:57 → DL.MS 20:14
PROVIDERS: ADMIT Internal Medicine Nephrology; ATTEND Internal Medicine Nephrology
DX: J18.1 Lobar pneumonia, unspecified organism (principal); E11.8 Type 2 diabetes mellitus with unspecified complications; I69.354 Hemiplegia and hemiparesis following cerebral infarction affecting left non-dominant side; E11.9 Type 2 diabetes mellitus without complications; H10.023 Other mucopurulent conjunctivitis, bilateral; N40.0 Benign prostatic hyperplasia without lower urinary tract symptoms; N18.9 Chronic kidney disease, unspecified; I12.9 Hypertensive chronic kidney disease with stage 1 through stage 4 chronic kidney disease, or unspecified chronic kidney disease; Z79.4 Long term (current) use of insulin; Z79.01 Long term (current) use of anticoagulants; E78.5 Hyperlipidemia, unspecified; I25.10 Atherosclerotic heart disease of native coronary artery without angina pectoris; Z87.891 Personal history of nicotine dependence; I48.2 Chronic atrial fibrillation; R09.02 Hypoxemia; H10.9 Unspecified conjunctivitis
CPT/HCPCS: 36415; 71010; 80053; 83605; 83880; 84484; 85025; 85610; 87040 ×2; 93005; 93010; 94640; 96365; 96375; 99285; A9270; J0456; J0696; J7030; J7050 ×2; 82962; 99284; J1815-GY; J7620-GY

== ENCOUNTER 2017-09-25 18:52 | Emergency (ER) | payer MEDICARE, BC, MEDICAID ==
--- NOTE | 2017-09-25 19:11 | EDM.PDOC ---
ED HPI GENERAL MEDICAL PROBLEM - General Chief Complaint: Respiratory Problem Time Seen by Provider: 09/25/17 19:07 Source of Information: Reports: Patient, Mcc Records History Limitations: Reports: No Limitations - History of Present Illness INITIAL COMMENTS - FREE TEXT/NARRATIVE: was d/c from hospital few days ago and returned for not better. pt states not better and now right hand hurts. Right Hand Pain Score (Numeric/FACES): 8 - Related Data Allergies Allergy/AdvReac Type Severity Reaction Status Date / Time codeine Allergy Nausea and Verified 09/20/17 19:45 Vomiting cortisone Allergy Shortness Verified 09/20/17 19:45 of Breath Home Meds: Home Meds Carvedilol 6.25 mg PO BID 02/19/15 [History] Insulin Aspart [NovoLOG] 11 units SUBCUT WITHBREAKFAST 02/19/15 [History] Insulin Glarg,Human.Rec.Analog [Lantus Solostar] 30 unit SUBCUT BEDTIME [History] Simvastatin 20 mg PO BEDTIME 02/19/15 [History] Sodium Bicarbonate 650 mg PO DAILY 02/19/15 [History] Tamsulosin HCl 0.4 mg PO BEDTIME 02/19/15 [History] Allopurinol [Zyloprim] 100 mg PO DAILY 01/15/17 [History] Levothyroxine 150 mcg PO DAILY 01/15/17 [History] Warfarin [Coumadin] 2.5 mg PO .SUTUWETHFRSA 01/15/17 [History] hydrALAZINE [Apresoline] 50 mg PO Q8H 30 Days tablet 02/04/17 [Rx] Acetaminophen 650 mg PO Q4HR PRN 09/20/17 [History] Cholecalciferol (Vitamin D3) [Vitamin D3] 1,000 unit PO DAILY 09/20/17 [History] Donepezil HCl 10 mg PO DAILY 09/20/17 [History] Gentamicin [Gentak 0.3% Ophth Oint] 3.5 gm EYEBOTH TID 09/20/17 [History] Lutein/Minerals/Vit A,C & E [I-Kahlil] 1 tab PO DAILY 09/20/17 [History] Sennosides/Docusate Sodium [Senna S Tablet] 1 tab PO BID 09/20/17 [History] Thiamine Mononitrate [Vitamin B-1] 100 mg PO DAILY 09/20/17 [History] Warfarin [Coumadin] 2 mg PO .Mondays09/20/17 [History] Azithromycin 500 mg PO DAILY #3 tablet 09/22/17 [Rx] Insulin Aspart [NovoLOG] 11 units SQ WITHLUNCH 09/22/17 [History] Insulin Aspart [NovoLOG] 13 units SQ WITHDINNER 09/22/17 [History] cefTRIAXone Sodium [Ceftriaxone] 1 gm IM DAILY #3 vial 09/22/17 [Rx] Past Medical History HEENT History: Reports: Impaired Vision Cardiovascular History: Reports: Afib, CAD, High Cholesterol, Hypertension, Other (See Below) Other Cardiovascular History: lipid disorder, venous insufficency of leg Respiratory History: Reports: SOB Gastrointestinal History: Reports: Diverticulosis, GERD, GI Bleed Other Gastrointestinal History: hx GI Bleed Genitourinary History: Reports: BPH, Urinary Incontinence, UTI, Recurrent, Other (See Below) Other Genitourinary History: chronic kidney disease Musculoskeletal History: Reports: Gout, Other (See Below) Other Musculoskeletal History: bone metabolism disorder Neurological History: Reports: CVA Psychiatric History: Reports: Dementia Endocrine/Metabolic History: Reports: Diabetes, Type II, Hyperparathyroidism, Hypothyroidism, Obesity/BMI 30+ Hematologic History: Reports: Other (See Below) Other Hematologic History: microalbuminuria - Infectious Disease History Infectious Disease History: Reports: Chicken Pox, Measles, Mumps - Past Surgical History HEENT Surgical History: Reports: Cataract Surgery, Other (See Below) Cardiovascular Surgical History: Reports: Coronary Artery Bypass, Coronary Artery Stent Male Surgical History: Reports: TURP-Transurethral Resection of Prostate Musculoskeletal Surgical History: Reports: Knee Replacement Social & Family History - Family History Family Medical History: Noncontributory - Tobacco Use Smoking Status *Q: Former Smoker Years of Tobacco use: 30 Packs/Tins Daily: 1 Used Tobacco, but Quit: No Month Tobacco Last Used: 12 Second Hand Smoke Exposure: No - Caffeine Use Caffeine Use: Reports: Coffee, Soda - Alcohol Use Days Per Week of Alcohol Use: 0 - Recreational Drug Use Recreational Drug Use: No - Living Situation & Occupation Living situation: Reports: , Extended Care Facility Occupation: Retired ED ROS GENERAL - Review of Systems Review Of Systems: ROS reveals no pertinent complaints other than HPI. ED EXAM, GENERAL - Physical Exam Exam: See Below Exam Limited By: No Limitations General Appearance: Alert, WD/WN, Mild Distress, Other (general discomfort) Ears: Hearing Grossly Normal Throat/Mouth: Normal Voice, No Airway Compromise Head: Atraumatic Neck: Non-Tender, Full Range of Motion Respiratory/Chest: No Respiratory Distress, No Accessory Muscle Use, Rales, Rhonchi Cardiovascular: Regular Rate, Rhythm GI/Abdominal: Soft, Non-Tender Neurological: Alert, Normal Cognition Psychiatric: Flat Affect Skin Exam: Warm, Dry, Normal Color Lymphatic: No Adenopathy Course - Vital Signs Last Recorded V/S: Last Vital Signs Temp 37.4 C 09/25/17 20:53 Pulse 86 09/25/17 20:53 Resp 18 09/25/17 20:53 BP 130/71 09/25/17 20:53 Pulse Ox 94 L 09/25/17 20:53 - Orders/Labs/Meds Labs: Laboratory Tests 09/25/17 09/25/17 09/25/17 Range/Units 19:15 19:15 19:15 WBC 14.3 H (5.0-10.0) 10^3/uL RBC 5.02 (4.6-6.2) 10^6/uL Hgb 12.8 L (14.0-18.0) g/dL Hct 42.9 (40.0-54.0) % MCV 85.5 (80-100) fL MCH 25.5 L (27.0-34.0) pg MCHC 29.8 L (33.0-35.0) g/dL Plt Count 270 (150-450) 10^3/uL Neut % (Auto) 73.5 (42.2-75.2) % Lymph % (Auto) 7.2 L (20.5-50.1) % [place] % (Auto) 15.5 H (2-8) % Eos % (Auto) 3.3 H (1.0-3.0) % Baso % (Auto) 0.5 (0.0-1.0) % Sodium 138 (135-145) mmol/L Potassium 4.8 (3.6-5.0) mmol/L Chloride 100 L (101-111) mmol/L Carbon Dioxide 32.0 H (21.0-31.0) mmol/L Anion Gap 10.8 BUN 43 H (7-18) mg/dL Creatinine 1.5 H (0.6-1.3) mg/dL Est Cr Clr Drug Dosing TNP Estimated GFR (MDRD) 44 BUN/Creatinine Ratio 28.66 Glucose 276 H (74-105) mg/dL Lactic Acid 1.3 (0.5-2.2) mmol/L Calcium 8.6 (8.4-10.2) mg/dl Total Bilirubin 0.5 (0.2-1.0) mg/dL AST 23 (10-42) IU/L ALT 9 L (10-60) IU/L Alkaline Phosphatase 55 (42-121) IU/L Total Protein 6.4 L (6.7-8.2) g/dl Albumin 2.8 L (3.2-5.5) g/dl Globulin 3.6 Albumin/Globulin Ratio 0.78 Meds: Medications Discontinued Medications Generic Name Dose Route Start Last Admin Trade Name Freq PRN Reason Stop Dose Admin Ceftriaxone Sodium 1 gm 09/25/17 20:41 09/25/17 20:48 Rocephin IVPUSH 09/25/17 20:42 1 gm ONETIME ONE Administration Sodium Chloride 250 mls @ 999 mls/hr 09/25/17 20:45 Normal Saline IV .BOLUS ANDREY Sodium Chloride 250 mls @ 999 mls/hr 09/25/17 20:48 09/25/17 20:49 Normal Saline IV 999 mls/hr .BOLUS ANDREY Administration - Re-Assessments/Exams Free Text/Narrative Re-Assessment/Exam: 09/25/17 20:44 case discussed with OBDULIO-. Departure - Departure Time of Disposition: 20:55 Disposition: DC/Tfer to SNF 03 Condition: Fair Clinical Impression: Bronchitis - Discharge Information Instructions: Acute Bronchitis, [id number] Forms: ED Department Discharge Additional Instructions: 1) continue regular meds 2) follow up with family doctor 3) recheck as needed rx given; doxycycline 100mg bid x 2 weeks
[2017-09-25 19:40] LABS: CHLORIDE,CL 100 mmol/L (101-111); SODIUM,NA 138 mmol/L (135-145)
[2017-09-25 20:10] LABS: ANION GAP 10.8
[2017-09-25] MEDS ORDERED: cefTRIAXone 1 GM Vial IVPUSH ONE (20:41)
[2017-09-25] MEDS ORDERED: Sodium Chloride 0.9% 250 ML IV SCH ×2 (20:45→20:48)
[2017-09-25 20:54] VITALS: BP 130/71
== END 2017-09-25 20:55 ==
LOC: DL.ED 18:52
DX: J40 Bronchitis, not specified as acute or chronic (principal); M79.641 Pain in right hand; I25.10 Atherosclerotic heart disease of native coronary artery without angina pectoris; E78.00 Pure hypercholesterolemia, unspecified; K21.9 Gastro-esophageal reflux disease without esophagitis; I12.9 Hypertensive chronic kidney disease with stage 1 through stage 4 chronic kidney disease, or unspecified chronic kidney disease; E11.22 Type 2 diabetes mellitus with diabetic chronic kidney disease; N18.9 Chronic kidney disease, unspecified; Z87.891 Personal history of nicotine dependence; Z79.4 Long term (current) use of insulin; Z79.01 Long term (current) use of anticoagulants; Z79.899 Other long term (current) drug therapy; Z88.5 Allergy status to narcotic agent; Z88.8 Allergy status to other drugs, medicaments and biological substances; Z79.2 Long term (current) use of antibiotics; Z95.1 Presence of aortocoronary bypass graft; Z95.5 Presence of coronary angioplasty implant and graft
CPT/HCPCS: 36415; 71010; 73120; 80053; 83605; 85025; 87040; 96374; 99283; J0696; J7040; 99284

== ENCOUNTER 2017-10-05 22:23 | Inpatient (IN) | payer MEDICARE, BC, MEDICAID ==
[2017-10-05 22:31] VITALS: BP 134/66
[2017-10-05] MEDS ORDERED: Furosemide 40 MG/4 ML VIAL IVPUSH ONE (22:38)
[2017-10-05] MEDS ORDERED: Albuterol/Ipratropium 3.0-0.5 MG/3 ML Neb Soln NEB ONE (22:39)
[2017-10-05] MEDS ORDERED: Diltiazem 25 MG/5 ML SDV IVPUSH ONE (22:50)
[2017-10-05 22:53] LABS: BASE EXCESS ARTERIAL 7 mmol/L ((-2)-(+3)); BICARBONATE,ARTERIAL 36.1 mmol/L (22-26); O2 DELIVERY DEVICE NON REBR MASK; O2 SATURATION ARTERIAL 98 % (95-100); PO2 ARTERIAL 130 mmHg (70-100)
[2017-10-05 22:56] LABS: PCO2 ARTERIAL 80 mmHg (35-45)
[2017-10-05 22:57] LABS: O2 FLOW RATE 15
[2017-10-05 23:19] LABS: CHLORIDE,CL 95 mmol/L (101-111); SODIUM,NA 138 mmol/L (135-145)
[2017-10-05] MEDS ORDERED: Furosemide 40 MG/4 ML VIAL IM ONE (23:25)
[2017-10-06] MEDS ORDERED: Furosemide 20 MG/2 ML VIAL IVPUSH ONE (00:58)
--- NOTE | 2017-10-06 01:10 | EDM.PDOC ---
ED HPI GENERAL MEDICAL PROBLEM - General Chief Complaint: Possible Sepsis Stated Complaint: CAME BY AMBULANCE, BREATHING PROBLEMS Time Seen by Provider: 10/05/17 22:30 Source of Information: Reports: EMS, Family History Limitations: Reports: No Limitations - History of Present Illness INITIAL COMMENTS - FREE TEXT/NARRATIVE: ED via [facility] from [facility] with respiratory distress. Patient had been hospitalized 10days ago for pneumonia, Currently still taking doxycycline. notes he has been more sleepy past two days. Has periods of day where doing better and then where lethargic and harder time breathing. Sudden onset respiratory difficulty at [place] tonight and moist respirations. emphatic with current DNR status . No CPR, No intubation, Bipap discussed and she declined. Verbalizes awareness of patient's health status. - Related Data Allergies Allergy/AdvReac Type Severity Reaction Status Date / Time codeine Allergy Nausea and Verified 10/06/17 02:19 Vomiting cortisone Allergy Shortness Verified 10/06/17 02:19 of Breath Home Meds: Home Meds Carvedilol 6.25 mg PO BID 02/19/15 [History] Insulin Aspart [NovoLOG] 11 units SUBCUT WITHBREAKFAST 02/19/15 [History] Insulin Glarg,Human.Rec.Analog [Lantus Solostar] 30 unit SUBCUT BID 02/19/15 [ History] Simvastatin 20 mg PO BEDTIME 02/19/15 [History] Sodium Bicarbonate 650 mg PO DAILY 02/19/15 [History] Allopurinol [Zyloprim] 100 mg PO DAILY 01/15/17 [History] Levothyroxine 150 mcg PO DAILY 01/15/17 [History] Warfarin [Coumadin] 2.5 mg PO DAILY 01/15/17 [History] Acetaminophen 650 mg PO Q4HR PRN 09/20/17 [History] Cholecalciferol (Vitamin D3) [Vitamin D3] 1,000 unit PO DAILY 09/20/17 [History] Donepezil HCl 10 mg PO DAILY 09/20/17 [History] Lutein/Minerals/Vit A,C & E [I-Kahlil] 1 tab PO DAILY 09/20/17 [History] Insulin Aspart [NovoLOG] 11 units SQ WITHLUNCH 09/22/17 [History] Albuterol [Proventil Neb Soln] 2.5 mg NEB Q4HRRT 10/05/17 [History] Furosemide [Lasix] 40 mg PO DAILY 10/05/17 [History] guaiFENesin [Robitussin] 200 mg PO Q4H PRN 10/05/17 [History] Doxycycline Hyclate 100 mg PO 10/06/17 [History] Famotidine [Pepcid] 20 mg PO 10/06/17 [History] Hydrocodone/Acetaminophen [Hydrocodon-Acetaminophen 5-325] 1 tab PO Q8H [History] PEG 400/Hypromellose/Glycerin [Artificial Tears Drops] 1 drop EYEBOTH BID [History] Sennosides/Docusate Sodium [Senna-S] 1 tab PO BID 10/06/17 [History] Thiamine Mononitrate [Vitamin B-1] 100 mg PO DAILY 10/06/17 [History] hydrALAZINE HCl [Hydralazine HCl] 100 mg PO TID 10/06/17 [History] Past Medical History HEENT History: Reports: Impaired Vision Cardiovascular History: Reports: Afib, CAD, High Cholesterol, Hypertension, Other (See Below) Other Cardiovascular History: lipid disorder, venous insufficency of leg Respiratory History: Reports: SOB Gastrointestinal History: Reports: Diverticulosis, GERD, GI Bleed Other Gastrointestinal History: hx GI Bleed Genitourinary History: Reports: BPH, Urinary Incontinence, UTI, Recurrent, Other (See Below) Other Genitourinary History: chronic kidney disease Musculoskeletal History: Reports: Gout, Other (See Below) Other Musculoskeletal History: bone metabolism disorder Neurological History: Reports: CVA Psychiatric History: Reports: Dementia Endocrine/Metabolic History: Reports: Diabetes, Type II, Hyperparathyroidism, Hypothyroidism, Obesity/BMI 30+ Hematologic History: Reports: Other (See Below) Other Hematologic History: microalbuminuria - Infectious Disease History Infectious Disease History: Reports: Chicken Pox, Measles, Mumps - Past Surgical History HEENT Surgical History: Reports: Cataract Surgery, Other (See Below) Cardiovascular Surgical History: Reports: Coronary Artery Bypass, Coronary Artery Stent Male Surgical History: Reports: TURP-Transurethral Resection of Prostate Musculoskeletal Surgical History: Reports: Knee Replacement Social & Family History - Family History Family Medical History: Noncontributory - Tobacco Use Smoking Status *Q: Never Smoker Years of Tobacco use: 30 Packs/Tins Daily: 1 Used Tobacco, but Quit: No Month Tobacco Last Used: 12 Second Hand Smoke Exposure: No - Caffeine Use Caffeine Use: Reports: Coffee, Soda - Alcohol Use Days Per Week of Alcohol Use: 0 - Recreational Drug Use Recreational Drug Use: No - Living Situation & Occupation Living situation: Reports: , Extended Care Facility Occupation: Retired ED ROS GENERAL - Review of Systems Review Of Systems: See Below Constitutional: Reports: Fever, Fatigue Respiratory: Reports: Shortness of Breath, Wheezing Cardiovascular: Reports: Other (reported that he felt that his heart was racing earlier). Denies: Chest Pain ED EXAM, GENERAL - Physical Exam Exam: See Below Exam Limited By: No Limitations General Appearance: Obtunded, Moderate Distress, Obese Eye Exam: Bilateral Eye: EOMI Ear Exam: Bilateral Ear: TM Dull Nose: Normal Inspection Throat/Mouth: Other (membranes dry) Head: Atraumatic, Normocephalic Respiratory/Chest: Respiratory Distress, Decreased Breath Sounds, Rhonchi ( throughout), Accessory Muscle Use Cardiovascular: JVD, Tachycardia, Irregularly Irregular GI/Abdominal: Normal Bowel Sounds (Male) Exam: Other (left testicle enlarged hard) Extremities: Other (generalized 3rd space edema with doughy appearance) Skin Exam: Warm, Dry, Intact, Pallor Course - Vital Signs Last Recorded V/S: Last Vital Signs Temp 98.8 F 10/05/17 22:48 Pulse 131 H 10/05/17 22:24 Resp 40 H 10/05/17 22:24 BP 134/66 10/05/17 22:24 Pulse Ox 100 10/05/17 22:24 - Orders/Labs/Meds Labs: Laboratory Tests 10/05/17 10/05/17 10/05/17 Range/Units 21:35 21:35 21:35 WBC 14.2 H (5.0-10.0) 10^3/uL RBC 5.41 (4.6-6.2) 10^6/uL Hgb 13.7 L (14.0-18.0) g/dL Hct 47.1 (40.0-54.0) % MCV 87.1 (80-100) fL MCH 25.3 L (27.0-34.0) pg MCHC 29.1 L (33.0-35.0) g/dL Plt Count 371 D (150-450) 10^3/uL Neut % (Auto) 85.3 H (42.2-75.2) % Lymph % (Auto) 3.0 L (20.5-50.1) % [place] % (Auto) 10.0 H (2-8) % Eos % (Auto) 1.4 (1.0-3.0) % Baso % (Auto) 0.3 (0.0-1.0) % PT (9.0-12.0) SEC INR (0.9-1.2) ABG pH (7.35-7.45) ABG pCO2 (35-45) mmHg ABG pO2 (70-100) mmHg ABG HCO3 (22-26) mmol/L ABG O2 Saturation (95-100) % ABG Base Excess ((-2)-(+3)) mmol/L O2 Delivery Device Oxygen Flow Rate Sodium 138 (135-145) mmol/L Potassium 5.0 (3.6-5.0) mmol/L Chloride 95 L (101-111) mmol/L Carbon Dioxide 35.0 H (21.0-31.0) mmol/L Anion Gap 13.0 BUN 42 H (7-18) mg/dL Creatinine 1.5 H (0.6-1.3) mg/dL Est Cr Clr Drug Dosing TNP Estimated GFR (MDRD) 44 BUN/Creatinine Ratio 28.00 Glucose 187 H (74-105) mg/dL Lactic Acid (0.5-2.2) mmol/L Calcium 9.0 (8.4-10.2) mg/dl Phosphorus (2.5-4.6) mg/dL Magnesium (1.8-2.5) mg/dL Total Bilirubin 0.3 (0.2-1.0) mg/dL AST 18 (10-42) IU/L ALT 17 (10-60) IU/L Alkaline Phosphatase 61 (42-121) IU/L CK-MB (CK-2) 1.50 (0.4-4.7) ng/mL Troponin I 0.03 H* (0.00-0.02) ng/ml B-Natriuretic Peptide 257 H (0-100) pg/ml Total Protein 7.6 (6.7-8.2) g/dl Albumin 3.4 (3.2-5.5) g/dl Globulin 4.2 Albumin/Globulin Ratio 0.81 10/05/17 10/05/17 10/05/17 Range/Units 21:35 22:35 22:35 WBC (5.0-10.0) 10^3/uL RBC (4.6-6.2) 10^6/uL Hgb (14.0-18.0) g/dL Hct (40.0-54.0) % MCV (80-100) fL MCH (27.0-34.0) pg MCHC (33.0-35.0) g/dL Plt Count (150-450) 10^3/uL Neut % (Auto) (42.2-75.2) % Lymph % (Auto) (20.5-50.1) % [place] % (Auto) (2-8) % Eos % (Auto) (1.0-3.0) % Baso % (Auto) (0.0-1.0) % PT 14.9 H (9.0-12.0) SEC INR 1.5 H (0.9-1.2) ABG pH 7.28 L (7.35-7.45) ABG pCO2 80 H* (35-45) mmHg ABG pO2 130 H (70-100) mmHg ABG HCO3 36.1 H (22-26) mmol/L ABG O2 Saturation 98 (95-100) % ABG Base Excess 7 H ((-2)-(+3)) mmol/L O2 Delivery Device Non rebr mask Oxygen Flow Rate 15 Sodium (135-145) mmol/L Potassium (3.6-5.0) mmol/L Chloride (101-111) mmol/L Carbon Dioxide (21.0-31.0) mmol/L Anion Gap BUN (7-18) mg/dL Creatinine (0.6-1.3) mg/dL Est Cr Clr Drug Dosing Estimated GFR (MDRD) BUN/Creatinine Ratio Glucose (74-105) mg/dL Lactic Acid 0.9 (0.5-2.2) mmol/L Calcium (8.4-10.2) mg/dl Phosphorus (2.5-4.6) mg/dL Magnesium (1.8-2.5) mg/dL Total Bilirubin (0.2-1.0) mg/dL AST (10-42) IU/L ALT (10-60) IU/L Alkaline Phosphatase (42-121) IU/L CK-MB (CK-2) (0.4-4.7) ng/mL Troponin I (0.00-0.02) ng/ml B-Natriuretic Peptide (0-100) pg/ml Total Protein (6.7-8.2) g/dl Albumin (3.2-5.5) g/dl Globulin Albumin/Globulin Ratio 10/05/17 10/06/17 Range/Units 22:35 00:00 WBC (5.0-10.0) 10^3/uL RBC (4.6-6.2) 10^6/uL Hgb (14.0-18.0) g/dL Hct (40.0-54.0) % MCV (80-100) fL MCH (27.0-34.0) pg MCHC (33.0-35.0) g/dL Plt Count (150-450) 10^3/uL Neut % (Auto) (42.2-75.2) % Lymph % (Auto) (20.5-50.1) % [place] % (Auto) (2-8) % Eos % (Auto) (1.0-3.0) % Baso % (Auto) (0.0-1.0) % PT (9.0-12.0) SEC INR (0.9-1.2) ABG pH (7.35-7.45) ABG pCO2 (35-45) mmHg ABG pO2 (70-100) mmHg ABG HCO3 (22-26) mmol/L ABG O2 Saturation (95-100) % ABG Base Excess ((-2)-(+3)) mmol/L O2 Delivery Device Oxygen Flow Rate Sodium (135-145) mmol/L Potassium (3.6-5.0) mmol/L Chloride (101-111) mmol/L Carbon Dioxide (21.0-31.0) mmol/L Anion Gap BUN (7-18) mg/dL Creatinine (0.6-1.3) mg/dL Est Cr Clr Drug Dosing Estimated GFR (MDRD) BUN/Creatinine Ratio Glucose (74-105) mg/dL Lactic Acid (0.5-2.2) mmol/L Calcium (8.4-10.2) mg/dl Phosphorus 4.6 (2.5-4.6) mg/dL Magnesium 1.7 L (1.8-2.5) mg/dL Total Bilirubin (0.2-1.0) mg/dL AST (10-42) IU/L ALT (10-60) IU/L Alkaline Phosphatase (42-121) IU/L CK-MB (CK-2) (0.4-4.7) ng/mL Troponin I (0.00-0.02) ng/ml B-Natriuretic Peptide 215 H (0-100) pg/ml Total Protein (6.7-8.2) g/dl Albumin (3.2-5.5) g/dl Globulin Albumin/Globulin Ratio Meds: Medications Discontinued Medications Generic Name Dose Route Start Last Admin Trade Name Freq PRN Reason Stop Dose Admin Acetaminophen 650 mg 10/06/17 01:44 Tylenol PO Q4H PRN Pain (Mild 1-3)/fever Albuterol 2.5 mg 10/06/17 03:00 10/06/17 03:17 Proventil Neb Soln NEB 2.5 mg Q4HRRT ANDREY Administration Albuterol/Ipratropium 3 ml 10/05/17 22:39 10/05/17 22:50 Duoneb 3.0-0.5 Mg/3 Ml NEB 10/05/17 22:40 3 ml ONETIME ONE Administration Allopurinol 100 mg 10/06/17 09:00 Zyloprim PO DAILY [facility] Carvedilol 6.25 mg 10/06/17 09:00 Coreg PO BID [facility] Ceftriaxone Sodium 2 gm 10/06/17 02:00 Rocephin IVPUSH Q24H ANDREY Ceftriaxone Sodium 2 gm 10/07/17 01:00 Rocephin IVPUSH Q24H [facility] Cholecalciferol 1,000 units 10/06/17 09:00 Vitamin D3 PO DAILY [facility] Ceftriaxone Sodium 1 gm/ 0 gm 10/06/17 01:21 10/06/17 01:32 Lidocaine HCl 2.1 ml IM 10/06/17 01:22 2.1 inj ONETIME ONE Administration Diltiazem HCl 10 mg 10/05/17 22:50 10/05/17 23:10 Diltiazem IVPUSH 10/05/17 22:51 10 mg ONETIME ONE Administration Donepezil HCl 10 mg 10/06/17 09:00 Aricept PO DAILY ANDREY Furosemide 40 mg 10/05/17 22:38 10/05/17 23:29 Lasix IVPUSH 10/05/17 22:39 Not Given NOW ONE Furosemide 40 mg 10/05/17 23:25 10/05/17 23:26 Lasix IM 10/05/17 23:26 40 mg NOW ONE Administration Furosemide 20 mg 10/06/17 00:58 Lasix IVPUSH 10/06/17 00:59 ONETIME ONE Furosemide 40 mg 10/06/17 01:33 10/06/17 01:37 Lasix IVPUSH 10/06/17 01:34 40 mg NOW ONE Administration Furosemide 40 mg 10/06/17 02:00 10/06/17 03:17 Lasix IVPUSH 40 mg Q12H ANDREY Administration Guaifenesin 200 mg 10/06/17 01:52 Robitussin PO Q6H PRN Cough Azithromycin 500 mg/ Sodium 250 mls @ 250 mls/hr 10/06/17 01:20 10/06/17 01: 41 Chloride IV 10/06/17 02:19 250 mls/hr ONETIME ONE Administration Azithromycin 500 mg/ Sodium 250 mls @ 250 mls/hr 10/07/17 02:00 Chloride IV Q24H [facility] Insulin Aspart 0 unit 10/06/17 08:00 Novolog SUBCUT WITHBREAKFAST [facility] Insulin Aspart 0 unit 10/06/17 12:00 Novolog SUBCUT WITHLUNCH [facility] Insulin Aspart 0 unit 10/06/17 18:00 Novolog SUBCUT WITHDINNER [facility] Insulin Detemir 0 unit 10/06/17 09:00 Levemir SUBCUT BID [facility] Levothyroxine Sodium 150 mcg 10/06/17 09:00 Levothyroxine PO DAILY [facility] Sodium Bicarbonate 650 mg 10/06/17 09:00 Sodium Bicarbonate PO DAILY [facility] Thiamine HCl 100 mg 10/06/17 09:00 Vitamin B-1 PO DAILY [facility] Warfarin Sodium 1 dose 10/06/17 02:00 Pharmacy To Dose - Warfarin .XX ASDIRECTED [facility] - Radiology Interpretation Free Text/Narrative:: CXR volume overload - Re-Assessments/Exams Free Text/Narrative Re-Assessment/Exam: Decreased respiratory effort following neb with slight improvement in exchange, RT here, ABG's drawn. continues with desire for minimally invasive treatment. Does not desire central line. placement if current IV access fails. Continued expression that does not want patient transferred. Prefers to have care here or transfer back to [place]. Currently oxygen at level that [place] cannot manage. Patient unable to take medications orally and adjustments will need to made. aware outlook is poor at present. She verbalizes that transfer would not likely change it. Benefit of specialty services and higher level of care discussed. continued to decline tx. 10/06/17 01:37 Dr. Crump here to see patient . Transfer of patient desired, family however does not want patient transferred. Departure - Departure Time of Disposition: 01:50 Disposition: Admitted As Inpatient 68 Condition: Critical Clinical Impression: Hypoxia, Respiratory distress, CHF (congestive heart failure), Acute respiratory acidosis, Atrial fibrillation with rapid ventricular response, Subtherapeutic anticoagulation Diabetes type 2, controlled Qualifiers: Diabetes mellitus complication status: without complication Diabetes mellitus exterminator termite insulin use: with skilled nursing use Qualified Code(s): E11.9 - Type 2 diabetes mellitus without complications; Z79.4 - intermodal truck driver (current) use of insulin; Z79.4 - intermodal truck driver (current) use of insulin; 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
[2017-10-06] MEDS ORDERED: Azithromycin 500 MG in Sodium Chloride 0.9% 250 ML IV ONE (01:20)
[2017-10-06] MEDS ORDERED: cefTRIAXone 1 GM, Lidocaine 1% 2.1 ML IM ONE ×2 (01:21)
[2017-10-06] MEDS ORDERED: Furosemide 40 MG/4 ML VIAL IVPUSH ONE (01:33)
[2017-10-06] MEDS ORDERED: Acetaminophen 325 MG Tab PO PRN (01:44)
[2017-10-06] MEDS ORDERED: guaiFENesin 100 MG/5 ML Soln 5 ML UD Cup PO PRN (01:52)
[2017-10-06] MEDS ORDERED: Furosemide 40 MG/4 ML VIAL IVPUSH SCH (02:00)
[2017-10-06] MEDS ORDERED: cefTRIAXone 2 GM Vial IVPUSH SCH (02:00)
--- NOTE | 2017-10-06 02:03 | PCM.HP ---
H&P History of Present Illness - General Date of Service: 10/06/17 Admit Problem/Dx: Admission Diagnosis/Problem Admission Diagnosis/Problem Shortness of breath tbc Source of Information: Patient History Limitations: Reports: No Limitations - History of Present Illness Initial Comments - Free Text/Narative: PATIENT UNRESPONSIVE AND COULD NOT GIVE HISTORY. HISTORY FROM BY BEDSIDE AND ED PROVIDER. Angel Winn is 87 y/o male with multiple comorbid who was brought to the ED from [place] because of acute onset of SOB with desaturation into the 70s. reports patient was recently treated for pneumonia and still taking doxycycline. His overall wellness has been on and off. Has periods of day where doing better and then where lethargic and harder time breathing. This evening he started having difficulty breathing and was sent to the ED. He has not had any fever, chills, cough. In the ED he was put on venturi mask and saturation improved to 97%. Spouse at bedside is aware of patients poor prognosis and does not want aggressive measures including transfer . No CPR, No intubation. As per ED provider Bi-PAP was discussed but she declined. Improves with: Reports: None Worsens with: Reports: None Associated Symptoms: Reports: No Other Symptoms - Related Data Allergies/Adverse Reactions: Allergies Allergy/AdvReac Type Severity Reaction Status Date / Time codeine Allergy Nausea and Verified 10/06/17 02:19 Vomiting cortisone Allergy Shortness Verified 10/06/17 02:19 of Breath Home Medications: Home Meds Carvedilol 6.25 mg PO BID 02/19/15 [History] Insulin Aspart [NovoLOG] 11 units SUBCUT WITHBREAKFAST 02/19/15 [History] Insulin Glarg,Human.Rec.Analog [Lantus Solostar] 30 unit SUBCUT BID 02/19/15 [ History] Simvastatin 20 mg PO BEDTIME 02/19/15 [History] Sodium Bicarbonate 650 mg PO DAILY 02/19/15 [History] Allopurinol [Zyloprim] 100 mg PO DAILY 01/15/17 [History] Levothyroxine 150 mcg PO DAILY 01/15/17 [History] Warfarin [Coumadin] 2.5 mg PO DAILY 01/15/17 [History] Acetaminophen 650 mg PO Q4HR PRN 09/20/17 [History] Cholecalciferol (Vitamin D3) [Vitamin D3] 1,000 unit PO DAILY 09/20/17 [History] Donepezil HCl 10 mg PO DAILY 09/20/17 [History] Lutein/Minerals/Vit A,C & E [I-Kahlil] 1 tab PO DAILY 09/20/17 [History] Insulin Aspart [NovoLOG] 11 units SQ WITHLUNCH 09/22/17 [History] Albuterol [Proventil Neb Soln] 2.5 mg NEB Q4HRRT 10/05/17 [History] Furosemide [Lasix] 40 mg PO DAILY 10/05/17 [History] guaiFENesin [Robitussin] 200 mg PO Q4H PRN 10/05/17 [History] Doxycycline Hyclate 100 mg PO 10/06/17 [History] Famotidine [Pepcid] 20 mg PO 10/06/17 [History] Hydrocodone/Acetaminophen [Hydrocodon-Acetaminophen 5-325] 1 tab PO Q8H [History] PEG 400/Hypromellose/Glycerin [Artificial Tears Drops] 1 drop EYEBOTH BID [History] Sennosides/Docusate Sodium [Senna-S] 1 tab PO BID 10/06/17 [History] Thiamine Mononitrate [Vitamin B-1] 100 mg PO DAILY 10/06/17 [History] hydrALAZINE HCl [Hydralazine HCl] 100 mg PO TID 10/06/17 [History] Past Medical History HEENT History: Reports: Impaired Vision Cardiovascular History: Reports: Afib, CAD, High Cholesterol, Hypertension, Other (See Below) Other Cardiovascular History: lipid disorder, venous insufficency of leg Respiratory History: Reports: SOB Gastrointestinal History: Reports: Diverticulosis, GERD, GI Bleed Other Gastrointestinal History: hx GI Bleed Genitourinary History: Reports: BPH, Urinary Incontinence, UTI, Recurrent, Other (See Below) Other Genitourinary History: chronic kidney disease Musculoskeletal History: Reports: Gout, Other (See Below) Other Musculoskeletal History: bone metabolism disorder Neurological History: Reports: CVA Psychiatric History: Reports: Dementia Endocrine/Metabolic History: Reports: Diabetes, Type II, Hyperparathyroidism, Hypothyroidism, Obesity/BMI 30+ Hematologic History: Reports: Other (See Below) Other Hematologic History: microalbuminuria - Infectious Disease History Infectious Disease History: Reports: Chicken Pox, Measles, Mumps - Past Surgical History HEENT Surgical History: Reports: Cataract Surgery, Other (See Below) Cardiovascular Surgical History: Reports: Coronary Artery Bypass, Coronary Artery Stent Male Surgical History: Reports: TURP-Transurethral Resection of Prostate Musculoskeletal Surgical History: Reports: Knee Replacement Social & Family History - Family History Family Medical History: Noncontributory - Tobacco Use Smoking Status *Q: Never Smoker Years of Tobacco use: 30 Packs/Tins Daily: 1 Used Tobacco, but Quit: No Month Tobacco Last Used: 12 Second Hand Smoke Exposure: No - Caffeine Use Caffeine Use: Reports: Coffee, Soda - Alcohol Use Days Per Week of Alcohol Use: 0 - Recreational Drug Use Recreational Drug Use: No - Living Situation & Occupation Living situation: Reports: , Extended Care Facility Occupation: Retired H&P Review of Systems - Review of Systems: Review Of Systems: Unable To Obtain General: Reports: Other (unresponsive) HEENT: Reports: No Symptoms, Other Pulmonary: Reports: Shortness of Breath, Wheezing Cardiovascular: Reports: Other (unable to obtain) Gastrointestinal: Reports: Other (unable to obtain) Genitourinary: Reports: Other (onable to obtain) Musculoskeletal: Reports: Joint Swelling Skin: Reports: No Symptoms Psychiatric: Reports: Other (unable to obtain) Neurological: Reports: No Symptoms Hematologic/Lymphatic: Reports: Other Immunologic: Reports: Other Exam - Exam Exam: See Below - Vital Signs Vital Signs: Last Vital Signs Temp 98.8 F 10/05/17 22:48 Pulse 131 H 10/05/17 22:24 Resp 40 H 10/05/17 22:24 BP 134/66 10/05/17 22:24 Pulse Ox 100 10/05/17 22:24 - Exam Quality Assessment: Supplemental Oxygen General: Obtunded HEENT: PERRLA, Hearing Intact, Mucosa Moist & [place], Nares Patent, Normal Nasal Septum, Posterior Pharynx Clear, Conjunctiva Clear, EOMI, EACs Clear, TMs Clear Neck: Supple, Trachea Midline, 2 Lungs: Decreased Breath Sounds, Crackles, Wheezing Cardiovascular: Regular Rate, Tachycardia GI/Abdominal Exam: Normal Bowel Sounds, Soft, Non-Tender, No Organomegaly, No Distention, No Abnormal Bruit, No Mass, Pelvis Stable (Male) Exam: No Hernia, Normal Inspection, Normal Prostate, Circumcised, Scrotal Swelling Rectal (Males) Exam: Normal Exam Back Exam: Normal Inspection, Full Range of Motion, NT Extremities: Normal Range of Motion, Non-Tender, Normal Capillary Refill, Pedal Edema Skin: Warm, Dry, Intact Neurological: Other (unable to examine) Neuro Extensive - Mental Status: Other (patient unresponsive) Neuro Extensive - Motor, Sensory, Reflexes: Other (Patient unresponsive) Psychiatric: Other (unresponsive) - Patient Data Result Diagrams: 10/05/17 21:35 10/05/17 21:35 *Q Meaningful Use (ADM) - VTE *Q VTE Criteria *Q: - Stroke *Q Stroke Criteria *Q: - AMI *Q AMI Criteria *Q: - Problem List (1) Acute respiratory acidosis SNOMED Code(s): 67714747 ICD Code: E87.2 - ACIDOSIS Status: Acute (2) CHF (congestive heart failure) SNOMED Code(s): 07726272 ICD Code: I50.9 - HEART FAILURE, UNSPECIFIED Status: Acute Priority: High Qualifiers: Congestive heart failure type: systolic Congestive heart failure chronicity : acute Qualified Code(s): I50.21 - Acute systolic (congestive) heart failure (3) Pneumonia SNOMED Code(s): 637330745 ICD Code: J18.9 - PNEUMONIA, UNSPECIFIED ORGANISM Status: Acute (4) CHF (congestive heart failure) SNOMED Code(s): 50295555 ICD Code: I50.9 - HEART FAILURE, UNSPECIFIED Status: Acute (5) Pneumonia SNOMED Code(s): 891000986 ICD Code: J18.9 - PNEUMONIA, UNSPECIFIED ORGANISM Status: Acute Priority : High Qualifiers: Pneumonia type: due to unspecified organism Laterality: left Lung location: lower lobe of lung Qualified Code(s): J18.1 - Lobar pneumonia, unspecified organism Problem List Initiated/Reviewed/Updated: Yes Orders Last 24hrs: Active Orders 24 hr Category Date Time Status Patient Status [ADT] Routine ADT 10/06/17 01:44 Active Cardiac Monitoring [RC] CONTINUOUS Care 10/06/17 01:47 Active Intake and Output [RC] QSHIFT Care 10/06/17 01:46 Active Oxygen Therapy [RC] PRN Care 10/06/17 01:44 Active VTE/DVT Education [RC] PER UNIT ROUTINE Care 10/06/17 01:44 Active Vital Signs [RC] Q4H Care 10/06/17 01:44 Active Consult to Palliative Care [CONS] Routine Cons 10/06/17 01:44 Ordered Respiratory Care Assess and Treatment [CONS] Routine Cons 10/06/17 01:44 Active Regular Diet [DIET] Diet 10/06/17 Breakfast Active CULTURE BLOOD [BC] Stat Lab 10/06/17 01:44 Ordered MAGNESIUM [CHEM] Stat Lab 10/06/17 01:44 Ordered PHOSPHORUS [CHEM] Stat Lab 10/06/17 01:44 Ordered Acetaminophen [Tylenol] Med 10/06/17 01:44 Ordered 650 mg PO Q4H PRN Albuterol [Proventil Neb Soln] Med 10/06/17 03:00 Ordered 2.5 mg NEB Q4HRRT Allopurinol [Zyloprim] Med 10/06/17 09:00 Ordered 100 mg PO DAILY Azithromycin [Zithromax] 500 mg Med 10/06/17 02:00 Ordered Sodium Chloride 0.9% [Normal Saline] 250 ml IV Q24H Carvedilol [Coreg] Med 10/06/17 09:00 Ordered 6.25 mg PO BID Cholecalciferol (Vitamin D3) [Vitamin D3] Med 10/06/17 09:00 Ordered 1,000 unit PO DAILY Donepezil [Aricept] Med 10/06/17 09:00 Ordered 10 mg PO DAILY Furosemide [Lasix] Med 10/06/17 02:00 Ordered 40 mg IVPUSH Q12H Insulin Aspart [NovoLOG] Med 10/06/17 08:00 Ordered 11 unit SUBCUT WITHBREAKFAST Insulin Aspart [NovoLOG] Med 10/06/17 12:00 Ordered 11 unit SUBCUT WITHLUNCH Insulin Aspart [NovoLOG] Med 10/06/17 18:00 Ordered 13 unit SUBCUT WITHDINNER Insulin Glarg,Human.Rec.Analog Med 10/06/17 09:00 Ordered 30 unit SUBCUT BID Levothyroxine Med 10/06/17 09:00 Ordered 150 mcg PO DAILY Sodium Bicarbonate Med 10/06/17 09:00 Ordered 650 mg PO DAILY Thiamine Mononitrate [Vitamin B-1] Med 10/06/17 09:00 Ordered 100 mg PO DAILY Warfarin Pharmacy to Dose [Pharmacy to Dose - Warfarin] Med 10/06/17 02:00 Ordered 1 dose .XX ASDIRECTED cefTRIAXone [Rocephin] Med 10/06/17 02:00 Ordered 2 gm IVPUSH Q24H guaiFENesin [Robitussin] Med 10/06/17 01:52 Ordered 200 mg PO Q6H PRN Resuscitation Status Routine Resus Stat 10/06/17 01:44 Ordered Medication Orders Acetaminophen (Tylenol) 650 mg PO Q4H PRN PRN Reason: Pain (Mild 1-3)/fever Albuterol (Proventil Neb Soln) 2.5 mg NEB Q4HRRT [facility] Allopurinol (Zyloprim) 100 mg PO DAILY [facility] Carvedilol (Coreg) 6.25 mg PO BID [facility] Ceftriaxone Sodium (Rocephin) 2 gm IVPUSH Q24H [facility] Donepezil HCl (Aricept) 10 mg PO DAILY [facility] Furosemide (Lasix) 40 mg IVPUSH Q12H [facility] Guaifenesin (Robitussin) 200 mg PO Q6H PRN PRN Reason: Cough Azithromycin 500 mg/ Sodium (Chloride) 250 mls @ 250 mls/hr IV ONETIME ONE Stop: 10/06/17 02:19 Last Admin: 10/06/17 01:41 Dose: 250 mls/hr Azithromycin 500 mg/ Sodium (Chloride) 250 mls @ 250 mls/hr IV Q24H [facility] Insulin Aspart (Novolog) 11 unit SUBCUT WITHBREAKFAST [facility] Insulin Aspart (Novolog) 11 unit SUBCUT WITHLUNCH [facility] Insulin Aspart (Novolog) 13 unit SUBCUT WITHDINNER [facility] Levothyroxine Sodium (Levothyroxine) 150 mcg PO DAILY [facility] Non-Formulary Medication (Cholecalciferol (Vitamin D3) [Vitamin D3]) 1,000 unit PO DAILY [facility] Non-Formulary Medication (Insulin Glarg,Human.Rec.Analog) 30 unit SUBCUT BID [facility] Non-Formulary Medication (Thiamine Mononitrate [Vitamin B-1]) 100 mg PO DAILY [facility] Sodium Bicarbonate (Sodium Bicarbonate) 650 mg PO DAILY [facility] Warfarin Sodium (Pharmacy To Dose - Warfarin) 1 dose .XX ASDIRECTED [facility] Assessment/Plan Comment:: #Acute hypoxic/hypercapnic respiratory failure -This could be due to pulomnary edema due to acute on chronic CHF vs PE(less likely as patient on warfarin) vs worsening pneumonia -Spouse at this time does not want aggressive measures -will continue with venturi mask -Aggressive diauresis with IV lasix -IV ceftriaxone and Azithromycin -Due-Nebs -CT chest to r/o PE -Monitor respiratory status -blood cultures -NPO -DNI/DNR
[2017-10-06] MEDS ORDERED: Albuterol 0.083% 2.5 MG/3 ML Neb Soln NEB SCH (03:00)
[2017-10-06] MEDS ORDERED: Insulin Aspart 100 Units/ML 3 ML Pen SUBCUT SCH ×3 (08:00→18:00)
[2017-10-06] MEDS ORDERED: Donepezil 10 MG Tab PO SCH (09:00)
[2017-10-06] MEDS ORDERED: Allopurinol 100 MG Tab PO SCH (09:00)
[2017-10-06] MEDS ORDERED: Cholecalciferol (Vitamin D3) 400 Unit Tab PO SCH (09:00)
[2017-10-06] MEDS ORDERED: Insulin Detemir 100 Units/ML 3 ML Pen SUBCUT SCH (09:00)
[2017-10-06] MEDS ORDERED: Levothyroxine 150 MCG Tab PO SCH (09:00)
[2017-10-06] MEDS ORDERED: Sodium Bicarbonate 650 MG Tab PO SCH (09:00)
[2017-10-06] MEDS ORDERED: Carvedilol 6.25 MG Tab PO SCH (09:00)
[2017-10-06] MEDS ORDERED: Thiamine 100 MG Tab PO SCH (09:00)
--- NOTE | 2017-10-06 13:08 | PCM.DCSUM1 ---
Discharge Summary - Hospital Course HPI Initial Comments: Anegl Winn is 87 y/o male with multiple comorbid who was brought to the ED from [place] because of acute onset of SOB. He was admitted for above and being managed with antibiotics and IV diauretics. Patient early this morning. - Discharge Data Discharge Date: 10/06/17 Discharge Disposition: 20 Preliminary Cause of *Q: Respiratory Failure Event(s) Leading to Patient's *Q: Acute respiartory failure Condition: - Discharge Diagnosis/Problem(s) (1) Acute respiratory acidosis SNOMED Code(s): 78628020 ICD Code: E87.2 - ACIDOSIS Status: Acute (2) CHF (congestive heart failure) SNOMED Code(s): 93145447 ICD Code: I50.9 - HEART FAILURE, UNSPECIFIED Status: Acute Priority: High Qualifiers: Congestive heart failure type: systolic Congestive heart failure chronicity : acute Qualified Code(s): I50.21 - Acute systolic (congestive) heart failure (3) Pneumonia SNOMED Code(s): 902466722 ICD Code: J18.9 - PNEUMONIA, UNSPECIFIED ORGANISM Status: Acute (4) CHF (congestive heart failure) SNOMED Code(s): 89788046 ICD Code: I50.9 - HEART FAILURE, UNSPECIFIED Status: Acute (5) Pneumonia SNOMED Code(s): 021457685 ICD Code: J18.9 - PNEUMONIA, UNSPECIFIED ORGANISM Status: Acute Priority : High Qualifiers: Pneumonia type: due to unspecified organism Laterality: left Lung location: lower lobe of lung Qualified Code(s): J18.1 - Lobar pneumonia, unspecified organism - Discharge Plan Home Medications: Home Meds Carvedilol 6.25 mg PO BID 02/19/15 [History] Insulin Aspart [NovoLOG] 11 units SUBCUT WITHBREAKFAST 02/19/15 [History] Insulin Glarg,Human.Rec.Analog [Lantus Solostar] 30 unit SUBCUT BID 02/19/15 [ History] Simvastatin 20 mg PO BEDTIME 02/19/15 [History] Sodium Bicarbonate 650 mg PO DAILY 02/19/15 [History] Allopurinol [Zyloprim] 100 mg PO DAILY 01/15/17 [History] Levothyroxine 150 mcg PO DAILY 01/15/17 [History] Warfarin [Coumadin] 2.5 mg PO DAILY 01/15/17 [History] Acetaminophen 650 mg PO Q4HR PRN 09/20/17 [History] Cholecalciferol (Vitamin D3) [Vitamin D3] 1,000 unit PO DAILY 09/20/17 [History] Donepezil HCl 10 mg PO DAILY 09/20/17 [History] Lutein/Minerals/Vit A,C & E [I-Kahlil] 1 tab PO DAILY 09/20/17 [History] Insulin Aspart [NovoLOG] 11 units SQ WITHLUNCH 09/22/17 [History] Albuterol [Proventil Neb Soln] 2.5 mg NEB Q4HRRT 10/05/17 [History] Furosemide [Lasix] 40 mg PO DAILY 10/05/17 [History] guaiFENesin [Robitussin] 200 mg PO Q4H PRN 10/05/17 [History] Doxycycline Hyclate 100 mg PO 10/06/17 [History] Famotidine [Pepcid] 20 mg PO 10/06/17 [History] Hydrocodone/Acetaminophen [Hydrocodon-Acetaminophen 5-325] 1 tab PO Q8H [History] PEG 400/Hypromellose/Glycerin [Artificial Tears Drops] 1 drop EYEBOTH BID [History] Sennosides/Docusate Sodium [Senna-S] 1 tab PO BID 10/06/17 [History] Thiamine Mononitrate [Vitamin B-1] 100 mg PO DAILY 10/06/17 [History] hydrALAZINE HCl [Hydralazine HCl] 100 mg PO TID 10/06/17 [History] Forms: ED Department Discharge - Discharge Summary/Plan Comment DC Time >30 min.: Yes (Patient diceased) Discharge Summary/Plan Comment: Patient . - General Info Date of Service: 10/06/17 Admission Dx/Problem (Free Text: Diceased. Subjective Update: Patient . Functional Status: Reports: Other - Review of Systems General: Reports: Other HEENT: Reports: Other Pulmonary: Reports: Other Cardiovascular: Reports: Other Gastrointestinal: Reports: Other Genitourinary: Reports: Other Musculoskeletal: Reports: Other Skin: Reports: Other Neurological: Reports: Other Psychiatric: Reports: Other - Patient Data Vitals - Most Recent: Last Vital Signs Temp 98.8 F 10/05/17 22:48 Pulse 131 H 10/05/17 22:24 Resp 40 H 10/05/17 22:24 BP 134/66 10/05/17 22:24 Pulse Ox 100 10/05/17 22:24 Med Orders - Current: Current Medications Discontinued Medications Acetaminophen (Tylenol) 650 mg PO Q4H PRN PRN Reason: Pain (Mild 1-3)/fever Albuterol (Proventil Neb Soln) 2.5 mg NEB Q4HRRT [facility] Last Admin: 10/06/17 03:17 Dose: 2.5 mg Albuterol/Ipratropium (Duoneb 3.0-0.5 Mg/3 Ml) 3 ml NEB ONETIME ONE Stop: 10/05/17 22:40 Last Admin: 10/05/17 22:50 Dose: 3 ml Allopurinol (Zyloprim) 100 mg PO DAILY [facility] Carvedilol (Coreg) 6.25 mg PO BID [facility] Ceftriaxone Sodium (Rocephin) 2 gm IVPUSH Q24H [facility] Ceftriaxone Sodium (Rocephin) 2 gm IVPUSH Q24H [facility] Cholecalciferol (Vitamin D3) 1,000 units PO DAILY [facility] Ceftriaxone Sodium 1 gm/ (Lidocaine HCl 2.1 ml) 0 gm IM ONETIME ONE Stop: 10/06/17 01:22 Last Admin: 10/06/17 01:32 Dose: 2.1 inj Diltiazem HCl (Diltiazem) 10 mg IVPUSH ONETIME ONE Stop: 10/05/17 22:51 Last Admin: 10/05/17 23:10 Dose: 10 mg Donepezil HCl (Aricept) 10 mg PO DAILY [facility] Furosemide (Lasix) 40 mg IVPUSH NOW ONE Stop: 10/05/17 22:39 Last Admin: 10/05/17 23:29 Dose: Not Given Furosemide (Lasix) 40 mg IM NOW ONE Stop: 10/05/17 23:26 Last Admin: 10/05/17 23:26 Dose: 40 mg Furosemide (Lasix) 20 mg IVPUSH ONETIME ONE Stop: 10/06/17 00:59 Furosemide (Lasix) 40 mg IVPUSH NOW ONE Stop: 10/06/17 01:34 Last Admin: 10/06/17 01:37 Dose: 40 mg Furosemide (Lasix) 40 mg IVPUSH Q12H [facility] Last Admin: 10/06/17 03:17 Dose: 40 mg Guaifenesin (Robitussin) 200 mg PO Q6H PRN PRN Reason: Cough Azithromycin 500 mg/ Sodium (Chloride) 250 mls @ 250 mls/hr IV ONETIME ONE Stop: 10/06/17 02:19 Last Admin: 10/06/17 01:41 Dose: 250 mls/hr Azithromycin 500 mg/ Sodium (Chloride) 250 mls @ 250 mls/hr IV Q24H [facility] Insulin Aspart (Novolog) 0 unit SUBCUT WITHBREAKFAST [facility] Insulin Aspart (Novolog) 0 unit SUBCUT WITHLUNCH [facility] Insulin Aspart (Novolog) 0 unit SUBCUT WITHDINNER [facility] Insulin Detemir (Levemir) 0 unit SUBCUT BID [facility] Levothyroxine Sodium (Levothyroxine) 150 mcg PO DAILY [facility] Sodium Bicarbonate (Sodium Bicarbonate) 650 mg PO DAILY [facility] Thiamine HCl (Vitamin B-1) 100 mg PO DAILY [facility] Warfarin Sodium (Pharmacy To Dose - Warfarin) 1 dose .XX ASDIRECTED [facility] - Exam General: Reports: Other () HEENT: Reports: Other Neck: Reports: Other Lungs: Reports: Other Cardiovascular: Reports: Other GI/Abdominal Exam: Other (Male) Exam: Other Rectal (Males) Exam: Other Back Exam: Reports: Other Extremities: Other Skin: Reports: Other Wound/Incisions: Reports: Other Neurological: Reports: Other Psy/Mental Status: Reports: Other *Q Meaningful Use (DIS) - VTE *Q VTE Criteria *Q: - Stroke *Q Stroke Criteria *Q: - AMI *Q AMI Criteria *Q:
[2017-10-07] MEDS ORDERED: cefTRIAXone 2 GM Vial IVPUSH SCH (01:00)
[2017-10-07] MEDS ORDERED: Azithromycin 500 MG in Sodium Chloride 0.9% 250 ML IV SCH (02:00)
--- NOTE | 2017-10-09 07:20 | EKG ---
10/05/2017 - ELVIRA RIVERO C - FINDINGS: This 12-lead EKG shows wandering baseline in the limb leads. Rhythm is atrial fibrillation with average ventricular rate of 142 (72 to 181). Borderline prolonged QT interval. Nonspecific ST changes, possibly rate related, but no acute changes. [facility] /[id number]
== END 2017-10-06 03:36 | disposition expired | DRG 291 ==
LOC: DL.ED 22:23 → DL.MS 10-06 01:39 → UNDOADMIN 10-06 01:39 → DL.MS 10-06 01:44
PROVIDERS: ADMIT Student in an Organized Health Care Education/Training Program; ATTEND Student in an Organized Health Care Education/Training Program
DX: R09.02 Hypoxemia (principal); I13.0 Hypertensive heart and chronic kidney disease with heart failure and stage 1 through stage 4 chronic kidney disease, or unspecified chronic kidney disease; I50.23 Acute on chronic systolic (congestive) heart failure; R79.1 Abnormal coagulation profile; I50.9 Heart failure, unspecified; E11.9 Type 2 diabetes mellitus without complications; J18.9 Pneumonia, unspecified organism; J96.01 Acute respiratory failure with hypoxia; I25.810 Atherosclerosis of coronary artery bypass graft(s) without angina pectoris; E87.2 Acidosis; N18.9 Chronic kidney disease, unspecified; E11.22 Type 2 diabetes mellitus with diabetic chronic kidney disease; Z79.4 Long term (current) use of insulin; I48.91 Unspecified atrial fibrillation; Z95.5 Presence of coronary angioplasty implant and graft; E78.00 Pure hypercholesterolemia, unspecified; K21.9 Gastro-esophageal reflux disease without esophagitis; N40.1 Benign prostatic hyperplasia with lower urinary tract symptoms; N39.498 Other specified urinary incontinence; M10.9 Gout, unspecified; Z86.73 Personal history of transient ischemic attack (TIA), and cerebral infarction without residual deficits; E03.9 Hypothyroidism, unspecified; E21.3 Hyperparathyroidism, unspecified; F03.90 Unspecified dementia, unspecified severity, without behavioral disturbance, psychotic disturbance, mood disturbance, and anxiety; Z87.891 Personal history of nicotine dependence; Z91.09 Other allergy status, other than to drugs and biological substances; Z79.01 Long term (current) use of anticoagulants; Z79.899 Other long term (current) drug therapy; Z66 Do not resuscitate
CPT/HCPCS: 36410; 36415; 36600; 71045; 80053; 82553; 82803; 83605; 83880 ×2; 84484; 85025; 85610; 87040; 93005; 93010; 96372; 96374; 96375; 99285; J0456; J0696; J1940 ×2; J3490; J7050; 83735; 84100; J7620-GY